=== PATIENT | female | born 1940 | race Caucasian/White ===

== ENCOUNTER 2016-11-01 03:07 | Inpatient (IN) ==
[2016-10-27 14:46] LABS: HEMATOCRIT 38.4 % (37.0-47.0); HEMOGLOBIN 12.8 g/dL (12.0-16.0); MCH 31.8 PG (27-31); MCHC 33.3 g/dL (33-37); MCV 95.3 FL (81-99); MPV 10.8 FL (7.4-10.4); RBC 4.03 XMIL (4.2-5.4)
[2016-10-27 15:08] LABS: CALCIUM 9.4 mg/dL (8.8-10.2)
--- NOTE | 2016-11-01 07:35 | EKG Report ---
Test Performed on : 11/01/2016 07:05:37 AM Test Reason : PREOP Blood Pressure : / mmHG Vent. Rate : 081 BPM Atrial Rate : 081 BPM P-R Int : 194 ms QRS Dur : 064 ms QT Int : 396 ms P-R-T Axes : 007 001 034 degrees QTc Int : 460 ms Normal sinus rhythm. Normal ECG When compared with ECG of 13-SEP-2007 10:11, No significant change was found Confirmed by Cabrera LONG, Eliezer Chilel ([id number]) on 11/02/2016 2:16:06 PM
[2016-11-01] MEDS ORDERED: ENTEREG ONE (07:37)
[2016-11-01] MEDS ORDERED: LR 1,000 ML ONE (07:38)
[2016-11-01] MEDS ORDERED: INVANZ 1 GM/NS 1 GM/50 ML IVPB ONE (07:49)
[2016-11-01] MEDS ORDERED: VALIUM ONE (07:53)
[2016-11-01] MEDS ORDERED: QUELICIN (DOSE) ONE (07:57)
[2016-11-01] MEDS ORDERED: NORCURON ONE ×2 (07:57→11:05)
[2016-11-01] MEDS ORDERED: SODIUM CHLORIDE 0.9% 10 ML ONE ×2 (07:57→11:05)
[2016-11-01] MEDS ORDERED: ROBINUL ONE ×2 (07:58→10:19)
[2016-11-01] MEDS ORDERED: XYLOCAINE-MPF 2% ONE (07:58)
[2016-11-01] MEDS ORDERED: DIPRIVAN 1% ONE (07:59)
[2016-11-01] MEDS ORDERED: FENTANYL ONE (08:00)
[2016-11-01] MEDS ORDERED: VERSED ONE (09:29)
[2016-11-01] MEDS ORDERED: NEO-SYNEPHRINE ONE (09:38)
[2016-11-01] MEDS ORDERED: SODIUM CHLORIDE 0.9% 20 ML ONE (09:38)
[2016-11-01] MEDS ORDERED: ZOFRAN ONE (10:20)
[2016-11-01] MEDS ORDERED: NEOSTIGMINE ONE (10:20)
[2016-11-01 10:40] LABS: URINE MICRO REVIEW NEEDED? NO; URINE SOURCE CATH
[2016-11-01] MEDS ORDERED: HURRICAINE SPRAY (DOSE) ONE (10:42)
[2016-11-01 10:49] LABS: BILIRUBIN URINE NEGATIVE (NEGATIVE); BLOOD URINE NEGATIVE (NEGATIVE); COLOR YELLOW; GLUCOSE URINE NEGATIVE (NEGATIVE); LEUKOCYTES URINE NEGATIVE (NEGATIVE); NITRITE URINE NEGATIVE (NEGATIVE); PROTEIN URINE TRACE mg/dL (NEGATIVE); SP GRAVITY URINE 1.015; TURBIDITY URINE HAZY (CLEAR); UR EPITHELIAL CELLS <10 /HPF (<10); URINE BACTERIA NEGATIVE /HPF; URINE RBC <10 /HPF (<10); URINE WBC <10 /HPF (<10); UROBILINOGEN URINE NORMAL (NORMAL)
[2016-11-01] MEDS ORDERED: NS 1,000 ML ONE (12:45)
[2016-11-01] MEDS: MORPHINE ONE ×6 (12:49→13:30)
--- NOTE | 2016-11-01 14:36 | OPERATIVE NOTE ---
PROCEDURE DATE: 11/01/2016 PROCEDURE PERFORMED: Exploratory laparotomy; extensive lysis of adhesions for greater than 1 hour; total abdominal colectomy with ileoproctostomy. SURGEON: Sourav Schilling MD LARRIMAN: 1. Leopoldo Garcia MD, who assisted with exposure, lysis of the adhesions, and the anastomosis. 2. MARGARET Harrison ANESTHESIA: General. FINDINGS: The most significant finding was the extensive adhesions within the abdominal cavity. DESCRIPTION OF PROCEDURE: Satisfactory general endotracheal anesthesia was achieved. The abdomen was prepped and draped in a sterile fashion. A midline incision was made from the epigastrium to the pubis. We carried our incision through the midline, through the subcutaneous fat, through the midline fascia, entering the abdominal cavity. We then began lysis of the adhesions using electrocautery as well as scissors. We 1st dissected the omentum away from the anterior abdominal wall. We then went to the right gutter and began mobilizing the right colon from the retroperitoneum. We went along the white line of Toldt, taking the ascending colon from the retroperitoneum. We then came across the hepatic flexure we used the LigaSure to assist us with the dissection. We left the greater omentum attached to the colon. We then took the greater omentum off the small bowel where it was attached to the small bowel. We went from right to left, dividing the greater omentum. We then mobilized the splenic flexure. We took care to avoid injury to the spleen. We then went along the descending colon, bringing the descending colon out of the retroperitoneum by incising along the white line of Toldt. We then progressed into the pelvis. We then incised the adhesions again of the small bowel into the pelvis and this allowed us to mobilize the small bowel out of the pelvis. We then lysed the adhesions to the ileum, exposed the length of ileum, and then divided the ileum with the MIKE 60 mm blue cartridge. We then went from proximal to distal on the colon, dividing the mesentery. The major vessels were clamped and divided with Alyssa clamps, ligating them with 2-0 silk suture ligatures. As we went from proximal to distal, we came down to the sigmoid, divided the sigmoid vessels, and then we stapled off the proximal rectum using the MIKE 60 blue cartridge. We handed off the specimen. We laid the ileum down end-to-side to the rectal stump. We then constructed the 2-layer anastomosis end-to-side using 3-0 silks in a Lembert fashion in the posterior layer. We cut off the distal staple line and then made a hole in the ileum. We then constructed the inner layer with a 3-0 Polysorb running locking stitch posteriorly, changing it to a Karla stitch anteriorly and the final layer was 3-0 silks in a Lembert fashion. This thereby constructed the end-to-side ileoproctostomy. We irrigated out the abdominal cavity. Hemostasis appeared satisfactory. We did close the mesentery of the ileum with 3-0 silk pops. We got rid of the contaminated instruments. Again, there was no evidence of bleeding. We then closed the peritoneum with a 2-0 chromic. We closed the fascia with running #2 Prolene. We irrigated out the subcutaneous tissue and closed the skin with radha. A sterile dressing was applied. She tolerated it well and was sent to the recovery room in satisfactory condition. cc: MD Froy Choe MD Dr. Arora
[2016-11-01] MEDS: ZOFRAN IV PRN ×2 (16:00→21:03)
[2016-11-01] MEDS: LOVENOX SUBQ SCH (16:01)
[2016-11-01] MEDS: OFIRMEV 1000 MG/ISOTONIC SOLN 1,000 MG/100 ML BOTTLE IV SCH ×2 (16:04→20:52)
[2016-11-01] MEDS: DILAUDID IV PRN ×2 (17:17→20:53)
[2016-11-01] MEDS: ULTRAM PO SCH ×2 (17:18→23:57)
[2016-11-01] MEDS: NS 1,000 ML IV SCH ×2 (18:37→23:57)
[2016-11-01] MEDS: PERIDEX MT SCH (20:52)
[2016-11-01] MEDS: KLONOPIN PO SCH (23:57)
[2016-11-02] MEDS: DILAUDID IV PRN ×2 (02:54→15:56)
[2016-11-02] MEDS: OFIRMEV 1000 MG/ISOTONIC SOLN 1,000 MG/100 ML BOTTLE IV SCH ×4 (03:34→21:05)
[2016-11-02] MEDS: PRILOSEC PO SCH (05:59)
[2016-11-02] MEDS: ULTRAM PO SCH ×3 (05:59→21:08)
[2016-11-02 06:45] LABS: HEMATOCRIT 19.4 % (37.0-47.0); HEMOGLOBIN 6.2 g/dL (12.0-16.0); MPV 10.5 FL (7.4-10.4)
[2016-11-02 07:01] LABS: POTASSIUM 4.5 mmol/L (3.5-5.1)
[2016-11-02 07:47] LABS: CALCIUM 6.7 mg/dL (8.8-10.2)
[2016-11-02] MEDS: ENTEREG PO SCH ×2 (09:17→21:06)
[2016-11-02] MEDS: PERIDEX MT SCH ×2 (09:17→21:05)
[2016-11-02] MEDS: OSCAL 500 + D PO SCH ×2 (09:30→21:05)
--- NOTE | 2016-11-02 11:47 | PROGRESS NOTE ---
DATE: 11/02/2016 SUBJECTIVE: Patient is doing okay. She is having some nausea and some pain around her sides but otherwise she says she is doing okay. OBJECTIVE: Vital Signs: Patient is currently afebrile. Her vital signs are stable. General: No acute distress. Cardiovascular: Regular rate and rhythm. Lungs: Grossly clear. Abdomen: Soft. Appropriately tender. Dressing in place. LABORATORY: Hematocrit is 19, hemoglobin is 6.2, platelet count 135,000. Remainder of labs reviewed. ASSESSMENT AND PLAN: This is a 76-year-old female status post total abdominal colectomy with ileoproctostomy. Postoperative state. At this time, we will recheck a stat hematocrit since her hematocrit is down to 19.4. This might be related to resuscitation, but will need a repeat. At her age she may need a transfusion if it does remain low. Will decrease her IV fluids down to 100 mL an hour. We will await return of bowel function. cc: MD Sourav Hernandez MD
[2016-11-02 11:53] LABS: BASO% 0.3 % (0.0-0.8); EOS# 0.01 X1000 (0.0-0.7); EOS% 0.2 % (0.0-10.0); HEMATOCRIT 18.3 % (37.0-47.0); HEMOGLOBIN 5.9 g/dL (12.0-16.0); LYMPH% 22.7 % (20.5-51.1); MCH 31.4 PG (27-31); MCHC 32.2 g/dL (33-37); MCV 97.3 FL (81-99); MONO# 0.86 X1000 (0.11-0.59); MPV 10.4 FL (7.4-10.4); NEUT% 63.8 % (42.2-75.2); PLT 120 X1000 (130-400); RBC 1.88 XMIL (4.2-5.4)
[2016-11-02 11:54] LABS: MANUAL DIFF NEEDED? NO
[2016-11-02] MEDS: NS 1,000 ML IV SCH ×2 (12:56→21:06)
[2016-11-02] MEDS: KLONOPIN PO SCH (21:05)
[2016-11-03] MEDS: ULTRAM PO SCH ×3 (03:57→12:10)
[2016-11-03] MEDS: OFIRMEV 1000 MG/ISOTONIC SOLN 1,000 MG/100 ML BOTTLE IV SCH ×4 (04:00→21:55)
[2016-11-03] MEDS: DILAUDID IV PRN ×3 (05:12→21:56)
[2016-11-03 05:45] LABS: MANUAL DIFF NEEDED? NO
[2016-11-03] MEDS: PRILOSEC PO SCH (06:22)
[2016-11-03 06:24] LABS: BASO% 0.1 % (0.0-0.8); EOS# 0.06 X1000 (0.0-0.7); EOS% 0.8 % (0.0-10.0); HEMATOCRIT 26.4 % (37.0-47.0); HEMOGLOBIN 8.5 g/dL (12.0-16.0); IMM GRAN# 0.04 X1000 (0.0-0.04); IMM GRAN% 0.6 % (0.0-0.5); LYMPH# 1.03 X1000 (1.2-3.4); LYMPH% 14.4 % (20.5-51.1); MCH 29.7 PG (27-31); MCHC 32.2 g/dL (33-37); MCV 92.3 FL (81-99); MONO# 0.85 X1000 (0.11-0.59); MONO% 11.9 % (1.7-9.3); MPV 10.6 FL (7.4-10.4); NEUT% 72.2 % (42.2-75.2); PLT 109 X1000 (130-400); RBC 2.86 XMIL (4.2-5.4)
[2016-11-03 07:17] LABS: POTASSIUM 3.7 mmol/L (3.5-5.1)
[2016-11-03 07:49] LABS: CALCIUM 7.1 mg/dL (8.8-10.2)
[2016-11-03] MEDS: ENTEREG PO SCH ×2 (09:54→21:56)
[2016-11-03] MEDS: PERIDEX MT SCH ×2 (09:54→21:56)
[2016-11-03] MEDS: OSCAL 500 + D PO SCH ×2 (09:54→21:56)
[2016-11-03] MEDS: NS 1,000 ML IV SCH ×2 (12:11→19:15)
[2016-11-03] MEDS: KLONOPIN PO SCH (21:56)
[2016-11-04] MEDS: ULTRAM PO SCH ×4 (01:09→22:03)
[2016-11-04] MEDS: DILAUDID IV PRN ×5 (01:52→23:16)
[2016-11-04] MEDS: OFIRMEV 1000 MG/ISOTONIC SOLN 1,000 MG/100 ML BOTTLE IV SCH ×3 (04:23→16:50)
[2016-11-04] MEDS: PRILOSEC PO SCH ×2 (05:21→07:38)
[2016-11-04] MEDS: NS 1,000 ML IV SCH (08:01)
[2016-11-04] MEDS ORDERED: NS 1,000 ML IV SCH (09:09)
[2016-11-04] MEDS: PERIDEX MT SCH ×2 (09:32→22:03)
[2016-11-04] MEDS: OSCAL 500 + D PO SCH ×2 (09:33→22:02)
[2016-11-04] MEDS: ENTEREG PO SCH ×2 (09:33→22:03)
[2016-11-04] MEDS: KLONOPIN PO SCH (22:02)
[2016-11-05] MEDS: OFIRMEV 1000 MG/ISOTONIC SOLN 1,000 MG/100 ML BOTTLE IV SCH ×4 (03:54→20:40)
[2016-11-05] MEDS: DILAUDID IV PRN ×5 (03:54→22:07)
[2016-11-05] MEDS: ZOFRAN IV PRN (05:57)
[2016-11-05] MEDS: ULTRAM PO SCH ×3 (05:58→20:39)
[2016-11-05] MEDS: PRILOSEC PO SCH ×2 (05:58→08:21)
[2016-11-05] MEDS: OSCAL 500 + D PO SCH ×2 (09:48→20:39)
[2016-11-05] MEDS: ENTEREG PO SCH ×2 (09:48→20:39)
[2016-11-05] MEDS: PERIDEX MT SCH ×2 (09:48→20:40)
[2016-11-05] MEDS ORDERED: SALINE LOCK IV FLUID XX ONE (13:32)
[2016-11-05] MEDS: LOVENOX SUBQ SCH (16:51)
[2016-11-05] MEDS: KLONOPIN PO SCH (20:39)
[2016-11-06] MEDS: ULTRAM PO SCH ×3 (04:15→21:38)
[2016-11-06] MEDS: OFIRMEV 1000 MG/ISOTONIC SOLN 1,000 MG/100 ML BOTTLE IV SCH ×4 (04:15→21:39)
[2016-11-06] MEDS: PRILOSEC PO SCH (06:12)
[2016-11-06] MEDS: DILAUDID IV PRN ×3 (08:41→19:58)
[2016-11-06] MEDS: OSCAL 500 + D PO SCH ×2 (09:00→21:38)
[2016-11-06] MEDS: ENTEREG PO SCH ×2 (09:00→21:38)
[2016-11-06] MEDS: PERIDEX MT SCH ×2 (09:00→21:39)
[2016-11-06] MEDS: LOVENOX SUBQ SCH (16:33)
[2016-11-06] MEDS: KLONOPIN PO SCH (21:38)
[2016-11-07] MEDS: DILAUDID IV PRN ×5 (01:11→21:06)
[2016-11-07] MEDS: OFIRMEV 1000 MG/ISOTONIC SOLN 1,000 MG/100 ML BOTTLE IV SCH (04:05)
[2016-11-07] MEDS: ULTRAM PO SCH ×3 (04:06→20:48)
[2016-11-07] MEDS: PRILOSEC PO SCH (06:16)
--- NOTE | 2016-11-07 09:12 | Diag Imaging Result Doc PS360 ---
EXAM: FLAT/UPRIGHT ABD/1 VIEW CHEST HISTORY: abdominal pain TECHNIQUE: Flat and upright abdomen with PA chest COMMENT: There are surgical skin clips from the epigastrium to the pelvis slightly to the left the midline. There is dense calcification of the aorta and iliac arteries. There is stool in the rectum. The small bowel and stomach are not distended. There is no evidence organomegaly or mass. IMPRESSION: Postsurgical changes. The possibility of mild constipation cannot be excluded. Electronically signed by Evan Knight 11/07/2016 9:09 AM
[2016-11-07] MEDS: OSCAL 500 + D PO SCH (09:30)
[2016-11-07] MEDS: NORCO-10 PO PRN (09:30)
[2016-11-07] MEDS: PERIDEX MT SCH ×2 (09:30→20:48)
[2016-11-07] MEDS: ENTEREG PO SCH ×2 (09:30→20:49)
[2016-11-07] MEDS: LOVENOX SUBQ SCH (15:04)
[2016-11-07] MEDS: KLONOPIN PO SCH (20:48)
[2016-11-08] MEDS: DILAUDID IV PRN ×2 (00:39→05:46)
[2016-11-08] MEDS: OSCAL 500 + D PO SCH ×3 (00:39→20:40)
[2016-11-08] MEDS: ULTRAM PO SCH ×3 (05:47→20:40)
[2016-11-08] MEDS: PRILOSEC PO SCH (06:48)
[2016-11-08] MEDS: PERIDEX MT SCH ×2 (10:22→20:40)
[2016-11-08] MEDS: ENTEREG PO SCH ×2 (10:22→20:40)
[2016-11-08] MEDS: NORCO-10 PO PRN ×2 (11:57→16:11)
[2016-11-08] MEDS: LOVENOX SUBQ SCH (14:36)
[2016-11-08] MEDS: KLONOPIN PO SCH (20:40)
[2016-11-09] MEDS: NORCO-10 PO PRN ×3 (04:07→15:44)
[2016-11-09] MEDS: ULTRAM PO SCH ×3 (05:57→21:39)
[2016-11-09] MEDS: PRILOSEC PO SCH ×2 (05:57→07:42)
--- NOTE | 2016-11-09 06:51 | PROGRESS NOTE ---
DATE: 11/09/2016 SUBJECTIVE: Patient doing okay. No major issues. OBJECTIVE: Vital Signs: Patient is currently afebrile. Her vital signs are stable. General Examination: No acute distress. Cardiovascular: Regular rate and rhythm. Lungs: Grossly clear. Abdomen: Soft, appropriately tender. ASSESSMENT/PLAN: A 76-year-old female, status post total abdominal colectomy. Postoperative state. At this time, the patient seems to be improving. Overall, I think the best thing for her to be, given her overall deconditioning, would be to go to rehab. At that this time, rehab referrals are pending. Once she has been accepted at a rehab place, I think that she would do well to be sent there. I did discuss this with the family and the patient in the room. cc: MD Sourav Hernandez MD
[2016-11-09] MEDS: OSCAL 500 + D PO SCH ×2 (09:58→21:40)
[2016-11-09] MEDS: PERIDEX MT SCH ×2 (09:59→21:41)
[2016-11-09] MEDS: LOVENOX SUBQ SCH (15:44)
[2016-11-09] MEDS: KLONOPIN PO SCH (21:41)
[2016-11-10] MEDS: ULTRAM PO SCH ×3 (06:03→21:52)
[2016-11-10] MEDS: PRILOSEC PO SCH (06:03)
[2016-11-10] MEDS: OSCAL 500 + D PO SCH ×2 (09:28→21:52)
[2016-11-10] MEDS: PERIDEX MT SCH ×2 (09:28→21:51)
[2016-11-10] MEDS: NORCO-10 PO PRN ×2 (12:15→18:14)
[2016-11-10] MEDS: LOVENOX SUBQ SCH (18:14)
[2016-11-10] MEDS: VOLTAREN PO SCH (21:52)
[2016-11-10] MEDS: KLONOPIN PO SCH (21:54)
[2016-11-11] MEDS: ULTRAM PO SCH (05:27)
[2016-11-11] MEDS: PRILOSEC PO SCH (05:27)
[2016-11-11 07:36] VITALS: BP 132/62
[2016-11-11] MEDS: VOLTAREN PO SCH (08:51)
[2016-11-11] MEDS: PERIDEX MT SCH (08:51)
[2016-11-11] MEDS: OSCAL 500 + D PO SCH (08:51)
--- NOTE | 2016-11-11 09:19 | DISCHARGE SUMMARY ---
ADMISSION DATE: 11/01/2016 DISCHARGE DATE: 11/11/2016 PRIMARY DISCHARGE DIAGNOSIS: Recurrent extensive diverticulitis. OTHER DIAGNOSIS: Extensive intra-abdominal adhesions. PRIMARY PROCEDURE: Exploratory laparotomy, lysis of adhesions, total abdominal colectomy with ileoproctostomy. INDICATIONS: This is a 76-year-old patient of Dr. Froy Gant, who has had recurrent diverticular symptoms. He has been followed by Dr. Antonio and has been recommended for a total abdominal colectomy. HOSPITAL COURSE: Following her admission, she went to the operating room and underwent the total abdominal colectomy with ileoproctostomy. The operation was complicated by the extensive lysis of adhesions which lasted more than an hour. Postoperatively, she gradually improved, took her Donohue on the second postoperative day, and began clear liquids on the third postoperative day. Her bowel progress was slow, however we were able to slowly advance her to p.o. food which she took in a limited fashion. Her primary complaint was just discomfort. We switched her off the IV Dilaudid and Ofirmev, and put her on [place] 10 which she tolerated okay. We began mobilizing her and walked her, but because of the profound weakness it was felt she would be best served by rehab referral. So, she will be transferred to rehab on a [id number] diabetic diet to be evaluated for physical therapy and rehabilitation until she is strong enough to go home. She will resume her usual medications. cc: MD Froy Choe MD
--- NOTE | 2016-11-11 10:57 | Diag Imaging Result Doc PS360 ---
CHEST-PORTABLE - 11/11/2016 INDICATION: rehab TECHNIQUE: COMPARISON: 11/07/2016 FINDINGS: The lungs are normally expanded and clear. Heart size and mediastinal contours are normal. No pneumothorax or pleural effusion. IMPRESSION: Negative exam. Electronically signed by Andrea Bird 11/11/2016 10:55 AM
== END 2016-11-11 12:21 ==
LOC: SURHOLD 03:07 → 4N 12:48
PROVIDERS: ADMIT Surgery; ATTEND Surgery

== ENCOUNTER 2016-11-16 08:06 | Inpatient (IN) ==
[2016-11-16] MEDS ORDERED: NS 500 ML IV ONE ×2 (08:10→08:52)
[2016-11-16] MEDS ORDERED: ZOSYN 3.375 GM/NS 3.375 GM/50 ML IVPB IV ONE (08:10)
[2016-11-16] MEDS ORDERED: NS 1,000 ML IV ONE ×2 (08:10→12:58)
--- NOTE | 2016-11-16 08:21 | PROVIDER DOCUMENTATION ---
HPI-General Adult - General Stated Complaint: AMS Time Seen by Provider: 11/16/16 08:07 Source: EMS, intermediate records Unable to obtain history due to:: other (paucity of [facility] notes) Allergies/Adverse Reactions: Patient Allergies Allergy/AdvReac Type Severity Reaction Status Date / Time Sulfa (Sulfonamide Allergy Unknown Verified 11/16/16 08:59 Antibiotics) Home Medications: Home Medication List Medication Instructions Recorded Confirmed Last Taken Type Clonazepam [Klonopin] 2 tab PO QHS 10/27/16 11/16/16 10/31/16 21:00 History Diclofenac Sodium 50 mg PO BID 10/27/16 11/16/16 10/27/16 History Metformin [Glucophage] 2 tab PO BID 10/27/16 11/16/16 10/31/16 11:00 History Omeprazole [Prilosec] 40 mg PO DAILY 10/27/16 11/16/16 10/30/16 History Gabapentin 100 mg PO QHS 11/01/16 11/16/16 10/29/16 History Tramadol [Ultram] 50 mg PO Q8HR #30 tablet 11/11/16 11/16/16 Unknown Rx Polyethylene Glycol 3350 [Miralax] 17 gm PO DAILY 11/16/16 11/16/16 Unknown History - History of Present Illness -Gen Adult Nature of Presenting Problems: Has had decreased LOC for 3-4 days. Labs yest were abnl. [facility] a total colecomy for diverticular dz. Surg was on 11/01. Pt is somulent. Denies pain Location of Pain/Injury: reports: none Pain Radiation: reports: no radiation Quality of Pain: reports: none Onset/Duration: reports: 4 days ago Timing: reports: still present, constant, getting worse Context/Activities at Onset: reports: none Modifying Factors: improves with: nothing Associated Symptoms: reports: denies symptoms Similar Symptoms Previously?: No Recently seen or treated by another doctor?: Yes Review of Systems - Adult - REVIEW OF SYSTEMS - ADULT ROS:: unobtainable per condition Constitutional: reports: see HPI Past History - Adult - PAST MEDICAL HISTORY-ADULT Review of Records: reports: Medications Reviewed Diabetes Type: Type 2 Diabetes controlled by:: PO Meds - PRIOR SURGERIES/PROCEDURES Surgical/Procedure History: reports: other (total colectomy) - SOCIAL HISTORY Smoking: quit less than 1 year Physical Exam-General - PHYSICAL EXAM-ADULT Exam Limited by: ALOC Initial Vital Signs Reviewed: Yes - CONSTITUTIONAL General Appearance: moderate distress, slow to respond - EYES Eyes: PERRL/EOMI, pink conjunctivae - HEAD, EARS, NOSE, MOUTH & THROAT HENMT: normal ENT inspection, pharynx normal, other (dry membranes) - NECK Neck: full range of motion, supple - RESPIRATORY Respiratory: lungs clear, normal breath sounds, no respiratory distress - CARDIOVASCULAR Cardiovascular: regular rate, rhythm, no edema - GASTROINTESTINAL (ABDOMEN) Abdominal Exam: normal bowel sounds, soft, tenderness (mild, diffuse) - MUSCULOSKELETAL Extremity: non-tender - SKIN Integumentary: warm/dry, other (decreased turgor) - NEUROLOGIC Neurologic: other (unable to test due to somulence) - PSYCHIATRIC Psych/Mental Status: other (arousable to voice, unable to assess further) Progress - PLAN OF CARE/RESULTS Progress/Plan/Lab Results: Orders Category Date Time Status Cardiac Monitoring DIRECTED Care 11/16/16 08:11 Active Donohue Cath Insertion ORDERED Care 11/16/16 08:11 Active IV Insertion ORDERED Care 11/16/16 08:11 Active IV Insertion ORDERED Care 11/16/16 08:11 Active Intake and Output-Strict ORDERED Care 11/16/16 08:11 Active Notify MD of + Sepsis Screen NOW Care 11/16/16 08:11 Active Notify MD/PA/STEVE for exam NOW Care 11/16/16 08:11 Active Repeat Vital Signs .Blood Pressure Care 11/16/16 08:11 Active Repeat Vital Signs .Heart Rate Care 11/16/16 08:11 Active Repeat Vital Signs .Oxygen Saturation Care 11/16/16 08:11 Active Repeat Vital Signs .Respiratory Rate Care 11/16/16 08:11 Active Repeat Vital Signs .Temp Care 11/16/16 08:11 Active CHEST-1 VIEW [RAD] Stat Exams 11/16/16 08:10 Ordered ABG [RESP] Routine Lab 11/16/16 08:13 Ordered BLOOD CULTURE [BLDCUL] Stat Lab 11/16/16 08:15 Ordered CBC WITH DIFF [HEME] Stat Lab 11/16/16 08:15 Ordered CK PROFILE [SP CHEM] Stat Lab 11/16/16 08:15 Ordered COMPREHENSIVE METABOLIC PANEL [CHEM] Stat Lab 11/16/16 08:15 Ordered LACTATE, PLASMA [CHEM] Stat Lab 11/16/16 08:15 Ordered LACTATE, PLASMA [CHEM] Timed Lab 11/16/16 08:11 Ordered MAGNESIUM [CHEM] Stat Lab 11/16/16 08:13 Uncollected PROTIME WITH INR [COAG] Stat Lab 11/16/16 08:15 Ordered PTT [COAG] Stat Lab 11/16/16 08:15 Ordered TROPONIN T Stat Lab 11/16/16 08:15 Ordered URINALYSIS W/POSS RFLX CULT-1 [URINALYSIS] Stat Lab 11/16/16 08:10 Uncollected 0.9% Sodium Chloride Inj [Ns] 1,000 ml Med 11/16/16 08:10 Discontinued IV As Directed 0.9% Sodium Chloride Inj [Ns] 500 ml Med 11/16/16 08:10 Active IV 999 mls/hr Piperacil/Tazobact 3.375 gm/Ns [Zosyn 3.375 gm/Ns] 50 Med 11/16/16 08:10 Ordered ml IV NOW Oxygen Device Stat Oth 11/16/16 08:11 Active Result Diagrams: 11/16/16 08:05 11/16/16 08:05 - REASSESSMENT Reassessment #1 Time Reassessed: 09:52 (more alert. nail spanish on, but skin turgor appears sl better) Departure - Departure Date of Disposition Decision: 11/16/16 Time of Disposition Decision: 15:00 DIAGNOSIS: Septic shock, Dehydration Disposition: ADMITTED INPATIENT 09 Certified Medical Emergency: Emergent Condition: Fair - Critical Care Note This patient required my direct & personal management of CC.: No
[2016-11-16 08:36] LABS: URINE SOURCE CATH
[2016-11-16 08:39] LABS: ALLEN TEST YES; BE -25.9 mmoll (-3.0-3.0); BLOOD TYPE ARTERIAL; DRAW SITE R RADIAL; METHB 0.8 % (0.0-1.5); O2(CT) 13.9 mL/dL (15.0-23.0); PO2(98.6) 127 mmHg (60-100); SAMPLE BLOOD; SAO2 99.4 % (95.0-100.0)
--- NOTE | 2016-11-16 08:40 | Diag Imaging Result Doc PS360 ---
EXAM: CHEST-1 VIEW HISTORY: hypotension TECHNIQUE: AP portable at 0835 COMMENT: The appearance of the chest has not changed appreciably since 11/11/2016. There is some opacity in the left costophrenic sulcus which may be due to a fat pad. There are granulomata in the left upper lobe. IMPRESSION: Stable chest. Electronically signed by Evan Knight 11/16/2016 8:38 AM
[2016-11-16 08:41] LABS: LACTATE > 20.00 mmoll (0.44-2.22); MODALITY ROOM AIR; PCO2(98.6) 14 mmHg (35-45)
[2016-11-16] MEDS ORDERED: VANCOMYCIN 1 GM/NS 1 GM/250 ML IVPB IV ONE (08:43)
[2016-11-16 08:48] LABS: BILIRUBIN URINE NEGATIVE (NEGATIVE); BLOOD URINE SMALL (NEGATIVE); COLOR ORANGE; GLUCOSE URINE NEGATIVE (NEGATIVE); LEUKOCYTES URINE LARGE (NEGATIVE); NITRITE URINE NEGATIVE (NEGATIVE); PROTEIN URINE 100 mg/dL (NEGATIVE); SP GRAVITY URINE 1.016; TURBIDITY URINE TURBID (CLEAR); UROBILINOGEN URINE NORMAL (NORMAL)
[2016-11-16 08:49] LABS: BASO% 0.3 % (0.0-0.8); EOS# 0.07 X1000 (0.0-0.7); EOS% 0.2 % (0.0-10.0); HEMATOCRIT 35.5 % (37.0-47.0); HEMOGLOBIN 10.2 g/dL (12.0-16.0); IMM GRAN# 1.43 X1000 (0.0-0.04); IMM GRAN% 4.2 % (0.0-0.5); LYMPH# 2.49 X1000 (1.2-3.4); LYMPH% 7.3 % (20.5-51.1); MANUAL DIFF NEEDED? YES; MCH 30.3 PG (27-31); MCHC 28.7 g/dL (33-37); MCV 105.3 FL (81-99); MONO# 5.95 X1000 (0.11-0.59); MONO% 17.3 % (1.7-9.3); MPV 11.6 FL (7.4-10.4); NEUT% 70.7 % (42.2-75.2); PLT 559 X1000 (130-400); RBC 3.37 XMIL (4.2-5.4)
[2016-11-16 08:57] LABS: INR 1.32; PROTIME 14.1 Seconds (9.2-11.7)
[2016-11-16 09:05] LABS: UR EPITHELIAL CELLS >10 /HPF (<10); URINE BACTERIA 2+ /HPF; URINE CULTURE NEEDED? YES; URINE MICRO REVIEW NEEDED? YES; URINE RBC <10 /HPF (<10); URINE WBC TNTC /HPF (<10)
[2016-11-16 09:10] LABS: BANDS 2 % (0-1); LYMPHS 11 % (21-51); MONO 9 % (1-9)
[2016-11-16] MEDS: LEVOPHED 8 MG in D5 1/2 NS 250 ML IV SCH ×2 (09:19→09:37)
[2016-11-16 09:24] LABS: ALBUMIN 3.1 g/dL (3.5-5.0); ALKALINE PHOSPHATASE 83 U/L (32-104); BUN 89 mg/dL (8-22); CALCIUM 8.4 mg/dL (8.8-10.2); CHLORIDE 73 mmol/L (98-107); CK PROFILE 111 U/L (24-173); COSMO 299; GOT 17 U/L (10-30); GPT 10 U/L (10-36); POTASSIUM 5.5 mmol/L (3.5-5.1); SODIUM 137 mmol/L (136-145); TCO2 4 mmol/L (25-35); TOTAL BILIRUBIN 0.21 mg/dL (0.20-1.00); TOTAL PROTEIN 5.9 g/dL (6.3-8.3)
[2016-11-16 09:28] LABS: URINE CASTS NONE SEEN
[2016-11-16 09:29] LABS: URINE SMALL ROUND CELLS RENAL PRESENT
[2016-11-16] MEDS ORDERED: D50W SYRINGE IV ONE (09:54)
[2016-11-16] MEDS ORDERED: SODIUM BICARBONATE 8.4% 150 MEQ in D5W 1,000 ML IV ONE (10:00)
[2016-11-16 10:15] LABS: PROTEIN CREAT RATIO 1.2; UR CREAT RANDOM 80.1 mg/dL (11-20); UR PROT RANDOM 93.6 mg/dL
[2016-11-16] MEDS ORDERED: VANCOMYCIN IV PER PHARMACY MISC SCH (10:20)
[2016-11-16] MEDS ORDERED: NS 1,000 ML IV SCH (10:20)
--- NOTE | 2016-11-16 10:25 | Diag Imaging Result Doc PS360 ---
EXAM: ABDOMEN/PELVIS W/O CONTRAST HISTORY: septic shock, recent colectomy TECHNIQUE: CT urogram without contrast COMMENT: There is some patient motion. There has been no appreciable change in the visualized portion of the lung bases since the previous study of 07/06/2016. There is an apparent 3 mm stone in the upper pole of the left collecting system. There is no evidence of hydronephrosis on either side. There is a cyst arising from the medial lower pole of the right kidney which was also present previously. There has been colectomy since the previous examination. There is no evidence of dilatation of the small bowel. The stomach is not distended. There is no evidence of significant adenopathy or free fluid. There is a catheter coiled in the urinary bladder. There are degenerative changes in the lumbar spine including facet arthropathy and degenerative disc disease with disc bulge. There may be spinal stenosis at the L4-5 level. There is been hysterectomy. There is what appears to be an ovarian cyst on the right measuring 2.4 cm in diameter. This was not present at the time the previous study. IMPRESSION: No evidence of bowel obstruction. Postsurgical changes of colectomy. Nonobstructing left renal stone. Right ovarian cyst. Electronically signed by Evan Knight 11/16/2016 10:22 AM
[2016-11-16] MEDS: SODIUM BICARBONATE 8.4% 150 MEQ in D5W 1,000 ML IV SCH (10:28)
[2016-11-16] MEDS ORDERED: HALDOL IV ONE (11:14)
--- NOTE | 2016-11-16 11:56 | SEPSIS: TISSUE PERFUSION ASSMT ---
Sepsis: Tissue Perfusion [facility], [place] - Physical Exam Assessment Date: 11/16/16 Time Assessment Initialized: 11:20 Vital Signs: Last Vital Signs Temp 94.6 F L 11/16/16 08:22 Pulse 73 11/16/16 09:52 Resp 17 11/16/16 09:52 BP 85/47 11/16/16 09:52 Pulse Ox 98 11/16/16 11:38 Height 5 ft 3 in Weight 144 lb 12.8 oz BP: 82/53 HR: 70 RR: 18 Pulse Ox: 96% Temp: 96.4 11/16/16 11:50 Lung Sounds:: lungs clear Heart Sounds:: Regular Capillary Refill Time: Greater Than 2 Seconds Peripheral Pulse Evaluation:: radial (R): 1+, radial (L): 1+, dorsalis-pedis (R) : 1+, dorsalis-pedis (L): 1+, posterior tibialis (R): 1+, posterior tibialis (L) : 1+ Skin Exam:: pale - Impression Impression:: Tissue Perfusion Inadequate - Plan Plan:: No Change Comment: 11/16/16 11:53 We are currently administering fluid resuscitation. Pt has received 30mL/Kg NS bolus and is receiving NS at 250mL/Hr. She is also on levophed gtt and we are uptitrating to a MAP >65. She is receiving broad spec abx including Vancomycin to cover staph.
[2016-11-16] MEDS: MERREM 500 MG in NS 50 ML IV SCH ×2 (12:14→20:30)
[2016-11-16 12:43] LABS: ALLEN TEST YES; BE -28.2 mmoll (-3.0-3.0); BLOOD TYPE ARTERIAL; DRAW SITE R RADIAL; METHB 0.5 % (0.0-1.5); O2(CT) 13.2 mL/dL (15.0-23.0); PO2(98.6) 133 mmHg (60-100); SAMPLE BLOOD; SAO2 99.9 % (95.0-100.0); THB 9.4 g/dL (11.5-17.4)
[2016-11-16 12:45] LABS: MODALITY ROOM AIR; PCO2(98.6) 15 mmHg (35-45)
--- NOTE | 2016-11-16 13:03 | HISTORY AND PHYSICAL ---
GENERAL SURGEON: Sourav Schilling MD. CHIEF COMPLAINT: Altered mental status. HISTORY OF PRESENT ILLNESS: Mrs. Hankins is a 76-year-old female with a history of diabetes mellitus who recently had an exploratory laparotomy with total abdominal colectomy with ileoproctostomy by Dr. Schilling on 11/01/2016. She was discharged 5 days ago and sent to [facility]. At this time patient is lethargic and confused, unable to answer orientation questions or give history. History is obtained per chart review as there is no family at the bedside. She was brought to the ER today because she has become increasingly lethargic and confused. Labs done at [facility] yesterday showed a profound increase in her BUN and creatinine and she was sent here for evaluation. When she got here today, she was noted to be hypotensive, labs showed a profound leukocytosis with left shift along with acute kidney injury. ABG revealed severe metabolic acidosis with a lactic acid of 22. As such, she was started on onset sepsis protocol. She has been given broad-spectrum antibiotics and fluid resuscitation per protocol and she is requiring Levophed for hemodynamics support. PAST MEDICAL HISTORY: 1. Recent total colectomy with ileoproctostomy. 2. Diabetes mellitus. 3. GERD. 4. Arthritis. PAST SURGICAL HISTORY: Recent colectomy, cholecystectomy, hysterectomy, partial resection of the stomach, bilateral rotator cuff tear, left foot surgery, cataract removal, shoulder arthroscopy. SOCIAL HISTORY: Patient quit smoking. There is no history of illicit drug or alcohol use. She is , is currently not at the bedside. REVIEW OF SYSTEMS: Unable to obtain. FAMILY HISTORY: Noncontributory. ALLERGIES: Sulfa. HOME MEDICATIONS: Klonopin 2 mg at bedtime, baclofen 50 mg b.i.d., Neurontin 100 mg at bedtime, Glucophage 1000 mg b.i.d., Prilosec 40 mg daily, MiraLAX 17 g daily, Ultram 50 mg p.o. q.8 h. PHYSICAL EXAMINATION: VITAL SIGNS: Blood pressure is 90/50, heart rate 69, respiratory rate is 16, O2 saturations 96% on room air, temperature is 96.4 degrees. GENERAL: This is an elderly female who is in no acute distress but confused. NEUROLOGIC: The patient is confused but she follows commands. She is unable to answer any orientation questions correctly, she just mumble. She is also agitated, pulling at lines. HEENT: Head is atraumatic and normocephalic. Her pupils are equal, round, and reactive to light. Oral mucosa is pale and dry. NECK: Trachea is midline. No JVD. CHEST: Clear to auscultation bilaterally. CARDIOVASCULAR: Regular rate and rhythm. S1, S2 noted. No murmurs. GASTROINTESTINAL: Midline incision clean, dry, and intact with Steri-Strips. No signs of infection. Bowel sounds are hypoactive. Belly is soft. There is some mild generalized tenderness to palpation. EXTREMITIES: 1+ pulses in all 4 extremities with capillary refill greater than 2 seconds. SKIN: Cold to touch. DIAGNOSTIC DATA: Abdomen and pelvis CT shows post cholecystectomy site, post colectomy changes but nothing acute. There is nonobstructing left renal stone with right ovarian cyst. Chest x-ray is stable and there is some opacity in the left costophrenic sulcus which may be due a fat pad. There are granulomata in the left upper lobe. WBC 34.31, hemoglobin 10.2, hematocrit 35.5, MCV 105.3, platelet count 559,000. INR 1.32. ABG on room air revealed pH 7, pCO2 14, pO2 127, bicarb 4.7. Lactic acid greater than 20. Sodium 137, potassium 5.5, chloride 73, CO2 4, anion gap not reportable, BUN 89, creatinine 7.7, glucose 55, calcium 8.4, magnesium 1.7. Bilirubin 0.21, AST 17, ALT 10, alkaline phosphatase 83. CK 111 troponin 0.025 albumin 3.1. Lactic acid 22, repeat 19. TSH 0.76. ASSESSMENT AND PLAN: 1. Septic shock: Patient meets criteria with profound leukocytosis, hypotension refractory to IV fluids requiring vasopressor, hypothermia, elevated international normalized ratio, and profound lactic acidosis. She does have a urinary tract infection but there does not appear to be a major source of infection, at least not at this time. We are resuscitating her per sepsis protocol. We have added meropenem and vancomycin for broad-spectrum antibiotics. Given her recent colectomy, we will consult Surgery as well. 2. Acute Kidney injury: Likely prerenal. Will check urine studies to verify as well as a renal ultrasound. Dr. Doan has been consulted. She is going to need to be put on a bicarbonate drip given her profound acidosis. We will also ask surgery to place a dialysis catheter in case she needs dialysis. 3. Metabolic encephalopathy: Likely secondary to sepsis but we are going to need to check a head CT, ammonia, and thyroid function. Continue to monitor her neuro status closely. 4. Macrocytic anemia: We will check iron studies in the morning. 5. Diabetes mellitus: We will check a hemoglobin A1c. Add pattern sugars and sliding scale insulin. 6. Deep venous thrombosis prophylaxis is going to be provided with SCDs and TEDs. Further recommendations to follow. TIME SPENT: Critical care time with this patient is 45 minutes. Dictated by STEVE Corrigan for Vishal Carter MD cc: STEVE Corrigan MD Robert C. Walker, MD [facility] HOSPITALJoão
--- NOTE | 2016-11-16 14:24 | Diag Imaging Result Doc PS360 ---
EXAM: US RENAL 2 (RETROPER) COMPLETE INDICATION: esme TECHNIQUE: COMPARISON: 03/22/2013 FINDINGS: There is a simple appearing cyst at the lower pole of the right kidney that is approximately stable measuring up to 2 cm. The kidneys are grossly normal in echotexture, otherwise. There is no discrete renal mass or hydronephrosis. The right kidney measures 9.0 cm and the left kidney measures 9.1 cm in the greatest longitudinal axes. The right renal cortex measures up to 0.9 cm and the left renal cortex measures up to 1 cm in thickness. There is a Donohue catheter in the urinary bladder and the bladder is nondistended. IMPRESSION: Stable simple right renal cyst. Essentially unremarkable, otherwise. Electronically signed by Joshua Ballard 11/16/2016 2:21 PM
--- NOTE | 2016-11-16 14:29 | PROGRESS NOTE ---
DATE: 11/16/2016 Mrs. Hankins seems to be about the same. She is not making urine. She is on pressors. She is still confused. I had a really large conversation with her , and we talked about the Advanced Directive. This patient does not want to be on mechanical ventilation or having CPR or cardioversion. We can only use medications for this patient. So, this patient will be DNR LEVEL 2. Time discussing advanced directive and prognosis of this patient with her about 35 minutes. cc: Vishal Carter MD
[2016-11-16 14:37] LABS: UR CREAT RANDOM 81.7 mg/dL (11-20); UR PROT RANDOM 115.8 mg/dL
--- NOTE | 2016-11-16 15:45 | CONSULTATION ---
DATE OF CONSULTATION: 11/16/2016 REASON FOR ADMISSION: Altered mental. Time seen 0900. CONSULTING PHYSICIAN: Srikanth Rdz for Dr. Santillan. HISTORY OF PRESENT ILLNESS: Ms. Hankins is a 76-year-old white female who has not been seen by our practice in the past. She has recently had an exploratory laparotomy with total abdominal colectomy with ileoproctostomy per Dr. Schilling in October 2016. She was discharged approximately 5 days ago and was sent to [facility]. Her states that she has not been eating and drinking for those 5 days when she was there, but did get her medications. She presents to the Emergency Department with increased lethargy and confusion. Her BUN and creatinine are elevated at 89 and 7.7. Patient has not had any urine output according to the . She has profound leukocytosis with a white count of 34.21. She has severe acidosis with a metabolic acidosis, CO2 4, lactic acidosis greater than 22 and an anion gap greater than 60. Subsequently patient has been given fluid resuscitation with 3L of normal saline. She is now on a Levophed drip. She has 2 IVs. She was recently started on vancomycin IV to be monitored by pharmacy. While I was at the bedside she was getting Zosyn IVPB. She is waiting for an ICU bed. She does mumble and is awake. She is unable to describe if she has any pain. She appears critically ill. She is in no acute distress as noted though she does remain restless. PAST MEDICAL HISTORY: Diabetes mellitus type 2. Recent total colectomy with ileoproctostomy. GERD, arthritis. Previous baseline creatinine is 1.2. It appears that she is in CKD stage 3A on her last hospitalization. SOCIAL HISTORY: She is . She has family who are attentive to her care. She currently is a resident of [facility]. She has quit smoking with previous smoker in the past. No history of illicit drug use or alcohol use. Her daughter has Medical power of trial attorney. FAMILY HISTORY: Noncontributory. PREVIOUS SURGICAL HISTORY: Noted for a recent colectomy with ileoproctostomy, cholecystectomy, hysterectomy, partial resection of stomach, bilateral rotator cuff tear, left foot surgery, cataract removal and shoulder arthroscopically. ALLERGIES: To sulfa. HOME MEDICATIONS: Listed as Klonopin, baclofen, Neurontin, Glucophage, Prilosec , MiraLAX and Ultram. REVIEW OF SYSTEMS: Review of systems x 10 is best obtained per and patient at the bedside. Her most recent vital signs, her temperature 94.6, blood pressure 85/47, heart rate 73, respirations are 16 to 18. She is on room air at this time. Donohue catheter to be inserted. LABS: Sodium 137, potassium 5.5, chloride 73, CO2 4. BUN 89, creatinine 7.7. Glucose 55. Her anion gap is 60 after calculation. Calcium of 8.4, albumin 3.1. White count 34.21, hemoglobin 10.2, hematocrit 35.5, with a platelet count of 559,000. Patient has a serum lactate of greater than 22. ABGs pH 7.0, CO2 14, PO2 127, bicarb 4.7 on room air. Her TSH is 0.76. Troponin is elevated 111 CK. Her total bilirubin is 0.21, AST 17, ALT 10, alkaline phosphatase 83. Patient had a CT of the head. Shows negative for acute. CT of the abdomen and pelvis shows post cholecystectomy site with changes nothing acute. No obstruction. Chest x-ray stable with some opacity to the left costophrenic sulcus with granulomatous to the left upper lobe. PHYSICAL EXAM: This is a 76-year-old white female. She appears chronically ill. She is in no acute distress but confused, slightly agitated.Skin: Warm and dry. No rashes or lesions. Neurological: She remains confused. She is able to follow some commands. HEENT: Normocephalic, atraumatic. Her pupils are equal, she has PHONG. Mucous membranes are dry, pale. Neck: Supple. Trachea midline. No JVD. Cardiovascular: She is regular rate and rhythm. There is no appreciable murmur or gallop at this time. Lungs: Clear to auscultation anterior. She is on room air. Abdomen: She has a midline incision that is clean, dry and intact. Steri-Strips remain intact. Bowel sounds are hypoactive, soft, mild tenderness on palpation. Genitourinary: Not inspected. Patient is to have a Donohue catheter placed. Extremities: Have 1+ edema. No clubbing or cyanosis. Neurological: As mentioned above. ASSESSMENT AND PLAN: 1. Acute kidney injury. This appears to be multifactorial. Her CT of the abdomen and pelvis shows no renal stones or mass. No measurement noted. We will check urine electrolytes once the Donohue catheter is in place. The patient appears dry. Acute kidney injury secondary to dehydration, hypotension and metformin intake, which is currently held. 2. Septic shock. Patient is severely hypotensive. She has been given 3 L of IV fluid. She is now on pressor support with Levophed. Patient is currently on septic shock protocol with positive leukocytosis and urinary tract infection. 3. Electrolytes. Patient has mild hyperkalemia. No need for intervention. 4. Acid-base balance. Patient has severe metabolic lactic acidosis and anion gap acidosis at this time. She is to be placed on sodium bicarbonate D5W with 3 amps of sodium bicarbonate to be infused at 75 mL an hour. 5. Anemia. This remains stable. Iron studies are pending. 6. Diabetes mellitus. Patient had been on her metformin associated with dehydration and this has currently been stopped. 7. Respiratory acidosis. The patient may eventually need ventilatory support. We will talk with the primary care team and discuss her medical power of trial attorney with her daughter. PLAN: Patient is to be placed in ICU. She has pressor support. She is on sepsis protocol. Offending medications have been stopped. Patient may eventually need to be intubated secondary to her severe acidosis. No indications for dialysis intervention today. Will discuss placement of Vas Cath with triple line for possible dialysis intefvention. We will continue to monitor and watch closely. I would to thank you for allowing us to follow with this patient. Dictated by STEVE Edwards for Arnaud Doan MD cc: STEVE Edwards MD [facility]
[2016-11-16] MEDS: NS 1,000 ML IV SCH ×2 (15:54→20:55)
[2016-11-16 16:32] LABS: BUN 82 mg/dL (8-22); CALCIUM 6.9 mg/dL (8.8-10.2); CHLORIDE 87 mmol/L (98-107); COSMO 312; MAGNESIUM 1.6 mg/dL (1.5-2.7); POTASSIUM 5.5 mmol/L (3.5-5.1); SODIUM 141 mmol/L (136-145); TCO2 3 mmol/L (25-35)
--- NOTE | 2016-11-16 17:10 | OPERATIVE NOTE ---
PROCEDURE DATE: 11/16/2016 PROCEDURE PERFORMED: Right femoral vein Vas-Cath placement with ultrasound guidance. SURGEON: Sourav Schilling MD. PREOP DIAGNOSIS: Septic shock with acute renal failure. POSTOP DIAGNOSIS: Septic shock with acute renal failure. DESCRIPTION OF PROCEDURE: The family permitted us to proceed. We then prepped and draped the right groin. We used an ultrasound to identify the femoral vein. We accessed the femoral vein under ultrasound guidance. After entering the femoral vein we passed the guidewire without difficulty. We then dilated the tract sequentially and passed the Trellis-8 catheter to the extent that it would go. The blood came back in each lumen spontaneously. We then flushed each lumen with saline and capped off each lumen. We then secured the flange to the skin with a nylon contained within the tray. The ChloraPrep again was used to clean the exit site. Sterile gauze covered it and then we placed a sterile OpSite. She tolerated it well. cc: Sourav Schilling MD
[2016-11-16] MEDS ORDERED: CALCIUM GLUCONATE 4.65 MEQ in NS 50 ML IV ONE (17:13)
[2016-11-16] MEDS: HUMALOG SUBQ SCH ×2 (17:19→22:27)
--- NOTE | 2016-11-16 17:41 | CONSULTATION ---
DATE OF CONSULTATION: 11/16/2016 HISTORY: This patient is known to me from surgery 2 weeks ago. She was admitted and underwent a total abdominal colectomy with ileoproctostomy due to recurrent acute diverticulitis. She was discharged to [facility] about 5 days ago. According to the family, there she has not really wanted to eat anything even though she has not complaint of abdominal pain terribly, she just simply did not have an appetite and did not want to eat. She then subsequent developed hypoglycemia, progressive confusion and then today was transported back because of her symptoms. Her past history is pertinent for arthritis and diabetes. Outside the hospital she takes metformin, Klonopin, omeprazole and diclofenac. Her family physician is Dr. Gant. She has had previous cholecystectomy, hysterectomy. At the time of her surgery she had quite extensive adhesions that we had to get through to get her colon out. Her preoperative CT did not really show significant superior mesenteric artery stenosis so chronic mesenteric ischemia has not been a consideration in her. She does have calcium in her aorta and has peripheral vascular disease. EXAM: Vital signs: She currently has a heart rate of 70 blood pressure 144/77, O2 sats 100%. She does respond. She is somewhat confused. She has bilateral breath sounds. Heart: Regular rate and rhythm. Abdomen: Is soft, inferiorly we did not elicit tenderness by examining her. She is somewhat cool in extremities. Her [place] [address], hemoglobin 10.2. Pro time 14. INR 1.3. Her pH is 6.9, pCO2 15, PO2 133, a base deficit of 28. Lactate level of 18. Potassium 5.5. BUN 89, creatinine 7.7. She has a large number of leukocytes in her urine. She is nitrite negative. ASSESSMENT: She has septic shock of uncertain etiology. One always must be concerned about intra- abdominal ischemia even though her presentation is not consistent with that. Her urine could be contributing. I will certainly follow along. Will place a Trilisate catheter for dialysis if needed. I think we need to reverse her acidosis before considering any other operative intervention. cc: Sourav Schilling MD
[2016-11-16] MEDS ORDERED: MORPHINE ONE (17:49)
--- NOTE | 2016-11-16 19:35 | CONSULTATION ---
DATE OF CONSULTATION: 11/16/2016 CONCLUSION: The patient is status post recent total colectomy with ileoproctostomy. She appears to be in severe sepsis. She has an elevated white count. She is in renal failure. She has acidosis. The patient on x-ray does have a left lung opacity but the radiologist feels like it is a fat pad and not pneumonia. Her blood cultures and urine culture are pending. She appears to be septic and could well be from an infection which just has not been identified yet. RECOMMENDATIONS: I agree with giving the patient vancomycin and meropenem pending culture results. The doses have been reduced because of the patient's renal failure. I am going to start the patient on micafungin in case she has a fungal overgrowth. DISCUSSION: No history can be obtained from the patient. She is delirious and no family member is present. As mentioned above, the patient recently had a total colectomy with ileoproctostomy. She was at [facility]. She became lethargic and confused and she was brought to the emergency room. She was found to have a lactic acid of 22 and she had acute renal injury. She was given broad-spectrum antibiotics and fluid for resuscitation and she was placed on Levophed. LAB AND X-RAY: Her lab studies thus far show a CBC with a white count of 34,310, hemoglobin 10.2, platelet count is 559,000. Creatinine is 6.9. The patient's creatinine is 6.6. The GFR is 6. The patient's blood gases show a pH of 6.9, a PO2 of 133, and a pCO2 of 15. Liver function studies are normal. CAT scan of the abdomen showed status post colectomy. There was a nonobstructing left renal stone. A chest x-ray showed opacity, as mentioned above, also granulomata were seen. PAST MEDICAL HISTORY: Positive for diabetes mellitus, gastroesophageal reflux disease, and arthritis. PAST SURGICAL HISTORY: Positive for recent total colectomy. She has also had a cholecystectomy, hysterectomy, partial stomach resection, bilateral rotator cuff tear repair, left foot surgery, cataract removal, and shoulder surgery. SOCIAL HISTORY: The patient quit smoking. She does not have a history of illicit drug use or alcohol use. She is . REVIEW OF SYSTEMS: Unable to be obtained. FAMILY HISTORY: Unobtainable. ALLERGIES: The patient's chart lists that she is allergic to sulfa. MEDICATIONS: The patient's chart lists that at home she was taking Klonopin, baclofen, Neurontin, Glucophage, Prilosec, MiraLAX, and Ultram. PHYSICAL EXAMINATION: Vital Signs: Temperature is 96.1 degrees, pulse 69, respirations 18, blood pressure 144/77. General: This is an ill-appearing, elderly female. She appears to be in no acute distress. She does seem delirious. Head, Ears, Nose, and Throat: No drainage noted from the nose or ears. She attempted to talk. I could not understand what she was saying. Neck: No meningismus. Thorax: No increased AP diameter of the chest. Lungs: Clear to auscultation. Cardiovascular: Regular heart rate. Abdomen: Soft and nontender. The midline incision is intact. In the right groin the patient has a Vas-Cath. Neurologic: As mentioned above, patient is delirious. She did not follow request to move her extremities. There was no tremor. Integument: No rash noted. Thank you for the consult. cc: Timothy Guerrero MD
[2016-11-16] MEDS: MYCAMINE 100 MG in NS 100 ML IV SCH (22:28)
[2016-11-17] MEDS: MORPHINE IV PRN ×2 (00:46→14:39)
[2016-11-17] MEDS: LEVOPHED 8 MG in D5 1/2 NS 250 ML IV SCH ×3 (01:28→20:07)
[2016-11-17] MEDS: SODIUM BICARBONATE 8.4% 150 MEQ in D5W 1,000 ML IV SCH ×2 (02:40→18:03)
[2016-11-17] MEDS: MERREM 500 MG in NS 50 ML IV SCH ×3 (04:09→19:58)
--- NOTE | 2016-11-17 05:44 | EKG Report ---
Test Performed on : 11/16/2016 08:13:03 AM Test Reason : AMS Blood Pressure : / mmHG Vent. Rate : 076 BPM Atrial Rate : 076 BPM P-R Int : 184 ms QRS Dur : 086 ms QT Int : 462 ms P-R-T Axes : 049 041 048 degrees QTc Int : 519 ms Normal sinus rhythm. Nonspecific ST abnormality Prolonged QT Abnormal ECG When compared with ECG of 01-NOV-2016 07:05, ST now depressed in Anterior leads QT has lengthened Unconfirmed Result
[2016-11-17] MEDS: HUMALOG SUBQ SCH ×4 (06:19→20:15)
[2016-11-17 06:25] LABS: BASO% 0.2 % (0.0-0.8); EOS# 0.05 X1000 (0.0-0.7); EOS% 0.3 % (0.0-10.0); HEMATOCRIT 28.6 % (37.0-47.0); HEMOGLOBIN 8.5 g/dL (12.0-16.0); IMM GRAN# 0.28 X1000 (0.0-0.04); IMM GRAN% 1.6 % (0.0-0.5); LYMPH# 2.14 X1000 (1.2-3.4); LYMPH% 12.2 % (20.5-51.1); MANUAL DIFF NEEDED? YES; MCH 29.7 PG (27-31); MCHC 29.7 g/dL (33-37); MONO# 3.55 X1000 (0.11-0.59); MONO% 20.3 % (1.7-9.3); MPV 10.4 FL (7.4-10.4); NEUT% 65.4 % (42.2-75.2); PLT 385 X1000 (130-400); RBC 2.86 XMIL (4.2-5.4)
[2016-11-17 06:29] LABS: HEMOGLOBIN A1C 5.6 % (4.8-6.0)
[2016-11-17 07:04] LABS: POTASSIUM 4.7 mmol/L (3.5-5.1)
[2016-11-17 07:31] LABS: CALCIUM 6.2 mg/dL (8.8-10.2)
[2016-11-17] MEDS ORDERED: CALCIUM GLUCONATE 4.65 MEQ in NS 50 ML IV ONE (07:34)
[2016-11-17 08:08] LABS: BANDS 6 % (0-1); LYMPHS 18 % (21-51); MONO 16 % (1-9)
[2016-11-17] MEDS ORDERED: NS 2,000 ML ONE (08:31)
[2016-11-17] MEDS ORDERED: HEPARIN ONE (08:31)
[2016-11-17] MEDS ORDERED: MAGNESIUM SULFATE 2 GM/S.W.I. 2 GM/50 ML IVPB IV ONE (08:36)
[2016-11-17] MEDS ORDERED: NEO-SYNEPHRINE 100 MG in NS 250 ML IV SCH (08:45)
[2016-11-17] MEDS: ALBUMIN 25% IV PRN (09:40)
--- NOTE | 2016-11-17 10:02 | Diag Imaging Result Doc PS360 ---
CHEST-1 VIEW - 11/17/2016 INDICATION: fluid volume status, no urine out TECHNIQUE: COMPARISON: 11/16/2016 FINDINGS: The lungs are normally expanded and clear. Heart size and mediastinal contours are normal. No pneumothorax or pleural effusion. IMPRESSION: Negative exam. Electronically signed by Andrea Bird 11/17/2016 10:00 AM
[2016-11-17] MEDS: NS 1,000 ML IV SCH (10:24)
[2016-11-17 10:59] LABS: HEPATITIS PROFILE ACUTE SEE COMMENTS
--- NOTE | 2016-11-17 11:18 | PROGRESS NOTE ---
DATE: 11/17/2016 SUBJECTIVE: This patient is about the same compared with yesterday. She is still confused. She is still on pressors. Family members at the bedside. I explained to them and the whole situation. Overall, this patient has poor prognosis. We will try to dialyze this patient today. Yesterday, a dialysis catheter was placed. OBJECTIVE: Vital Signs: Temperature 97.5 degrees, pulse 98, respiratory rate 25, blood pressure 91/48, oxygen saturation 98 on room air. HEENT: Head normocephalic. No trauma. PERRLA. Neck: Supple. No JVD. No masses. Central trachea. Chest: Clear to auscultation. Mild rales at the bases. Abdomen: Soft, nontender, nondistended. Extremities: No edema, no clubbing, no cyanosis. Neurological Examination: The patient is alert but she is not following commands. She is not answering any questions. She is confused. Laboratory: WBC 17.5, hemoglobin 8.5, hematocrit 28.6, platelets 385,000. Sodium 139, potassium 4.7, chloride 87, bicarbonate 7, BUN 86, creatinine 6.9, glucose 75, calcium 6.2, magnesium 1.2, albumin 2.3, plasma lactate 16.6. ASSESSMENT AND PLAN: 1. Septic shock. We will continue with the antibiotics. Infectious disease department is on board. We have a positive blood culture that showed gram-negative rods. Continue with the same management for now. 2. Acute kidney injury. Today, hopefully we will dialyze this patient. A dialysis catheter has been placed. 3. Metabolic acidosis, likely related to septic shock and acute kidney injury. Continue to monitor. 4. Metabolic encephalopathy, likely secondary to sepsis. 5. Microcytic anemia. Continue to monitor. 6. Type 2 diabetes. Continue with the sliding scale insulin. 7. Deep vein thrombosis prophylaxis with sequential compression devices and TEDs. 8. Hypoglycemia. I will replace the potassium. 9. Hypomagnesemia. I will replace the magnesium. CRITICAL CARE TIME: 45 minutes. cc: Vishal Carter MD
--- NOTE | 2016-11-17 14:50 | PROGRESS NOTE ---
DATE: 11/17/2016 TIME SEEN: 0800 hours. SUBJECTIVE: Ms. Hankins is resting quietly in bed. She remains on room air. Her family is at her bedside. She is in no acute distress. OBJECTIVE: Vital Signs: Her most recent vital signs, temperature is 97.5 degrees, blood pressure 91/48, heart rate 98, respirations are 24. She is currently on room air. Last recorded saturation is 98%. She has had 5403 in. She has had 75 mL out per Donohue catheter. LABS: Sodium 139, potassium 4.7, chloride is 87, CO2 7, BUN 86, creatinine 6.9 , glucose 75, anion gap 45, calcium 6.2, albumin 2.3, magnesium 1.2. Corrected calcium is 7.56 white count 17.52 hemoglobin 8.5, hematocrit 28.6, with a platelet count of 385,000. Renal ultrasound indicates the right kidney measuring 9 with a small simple cyst. Left kidney measuring 9.1. Her plasma lactate last drawn of 16.6. Patient had a FENa score with her urine electrolytes of 4.13%. IV: She currently has normal saline infusing at 75 mL an hour Levophed drip. She has a sodium bicarbonate drip and D5W. She has just received calcium gluconate bolus. Patient is currently on micafungin, vancomycin and meropenem. All to be renally dosed per pharmacy and Dr. Guerrero. PHYSICAL EXAMINATION: General: This is a 76-year-old white female. She appears chronically ill. She is in no acute distress. Skin: Warm and dry. HEENT: Normocephalic, atraumatic. Pupils are equal. Conjunctiva is pale. Mucous membranes are dry. Neck: Supple. Trachea midline. No JVD. Cardiovascular: Regular rate and rhythm. No appreciable murmur or gallop today. Lungs: Clear to auscultation anteriorly. Diminished breath sound right base, otherwise on room air. Abdomen: Midline incision that is clean dry and intact. Steri-Strips remain intact. Hypoactive bowel sounds. Had to listen for a good 3-4 minutes. Mild tenderness on palpation. Genitourinary: Donohue catheter remains in place. Genitourinary not inspected. Minimal urine out. Integumentary: No rashes or lesions noted. Midline incision to abdomen as inspected. Neurological: Patient is awake to person. She does make eye contact but is unable to follow commands. ASSESSMENT AND PLAN: 1. Acute kidney injury multifactorial. Patient has made minimal urine in the last 24 hours. She is in fluid volume overload of 5.4 L. She remains in acidosis. We have spoken with the family. She has a Vas-Cath placed per Dr. Schilling to her right groin. This remains dry and intact. We have discussed starting dialysis today, low flow. We will place her on SLED. She is to be on a 4 K bath, dialyze her for 8 hours, place her on a 30 bicarbonate. We will attempt 2 L of ultrafiltration. Because of her hypotension, we will give any 25 g of albumin to start her dialysis and may possibly use 25 g 3-4 hours into the treatment if blood pressure remains low. 2. Septic shock. Patient is currently on Levophed and normal saline. This is also multifactorial. She is currently on renal dosed antibiotics per Dr. Guerrero. We have indicated that if she needs further support that we can add Daniel-Synephrine drip during her dialysis treatments. 3. Severe acidosis. Patient continues with lactic acidosis, level now down to 16.6 with an anion gap greater than 45 and her CO2 of 7. No ABGs have been repeated today. Again, we will plan for correction on dialysis and check labs in the a.m. 4. Electrolytes. These are currently stable. 5. Anemia. This remains low but stable. 6. Leukocytosis. Again, patient is in septic shock. She is followed by Dr. Guerrero. She is currently on renal dosed antibiotics with no indications for changes per renal. I would to thank you for allowing us to follow with this patient. Dictated by STEVE Edwards for Arnaud Doan MD cc: STEVE Edwards MD [facility]
[2016-11-17] MEDS: MYCAMINE 100 MG in NS 100 ML IV SCH (21:50)
[2016-11-18] MEDS: NS 1,000 ML IV SCH ×2 (01:00→10:55)
[2016-11-18] MEDS: MERREM 500 MG in NS 50 ML IV SCH ×3 (04:05→19:35)
[2016-11-18] MEDS: HUMALOG SUBQ SCH ×4 (06:41→21:25)
[2016-11-18 06:42] LABS: ALBUMIN 2.2 g/dL (3.5-5.0); CALCIUM 6.4 mg/dL (8.8-10.2); MAGNESIUM 1.7 mg/dL (1.5-2.7); POTASSIUM 4.4 mmol/L (3.5-5.1)
--- NOTE | 2016-11-18 07:36 | PROGRESS NOTE ---
DATE: 11/18/2016 PRESENT ILLNESS: The patient is status post total colectomy. She became septic. Yesterday, the blood culture results indicated the patient had a gram-negative danie bacteremia. The urine culture is pending. MEDICATIONS: I am going to keep .on with meropenem I have discontinued micafungin and vancomycin. PHYSICAL EXAMINATION: Vital Signs: Temperature is 99.3 degrees, pulse 82, respirations 18, blood pressure 110/48. Generally: This is an ill-appearing elderly female. She is in no acute distress, however. Lungs: Clear to auscultation. Cardiovascular: Regular heart rate. Abdomen: Soft and not tender. The patient's midline incision is intact. Groin: In the patient's right groin, there is a Vas-Cath present. The site is not swollen or erythematous. Neurologic: The patient is in somewhat of a delirium. She did not follow request to move her extremities. She did not answer questions. LAB AND X-RAY: As mentioned above, the patient's blood culture is growing gram-negative danie. The urine culture is pending. There is no new radiographic study. CBC yesterday showed a white count of 17,520, hemoglobin 8.5, and platelet count 385,000. Creatinine is 6.9. The GFR is 6. Hepatitis panel is nonreactive. ASSESSMENT AND PLAN: Patient has gram-negative danie bacteremia. I am going to continue meropenem. I have discontinued vancomycin and Zosyn. The urine culture is pending. COMORBIDITIES: Include the fact she is elderly. She has had recent surgery, namely her colectomy and the patient also has diabetes mellitus and gastroesophageal reflux disease. cc: Timothy Guerrero MD
[2016-11-18] MEDS ORDERED: NS 2,000 ML ONE (07:59)
[2016-11-18] MEDS ORDERED: HEPARIN ONE (07:59)
[2016-11-18] MEDS ORDERED: CALCIUM GLUCONATE 4.65 MEQ in NS 50 ML IV ONE (08:00)
[2016-11-18] MEDS ORDERED: ALBUMIN 25% ONE (08:22)
--- NOTE | 2016-11-18 08:56 | Diag Imaging Result Doc PS360 ---
EXAM: CHEST-PORTABLE HISTORY: chest congestion TECHNIQUE: AP portable at 0844 COMMENT: Considering differences in technique there has been no significant change since 11/17/2016. The lungs appear to be clear. The heart and pulmonary vascularity are within normal limits. IMPRESSION: Stable chest. Electronically signed by Evan Knight 11/18/2016 8:54 AM
[2016-11-18] MEDS ORDERED: DULCOLAX PR ONE (09:00)
[2016-11-18 09:17] LABS: BASO% 0.2 % (0.0-0.8); EOS# 0.01 X1000 (0.0-0.7); EOS% 0.2 % (0.0-10.0); HEMATOCRIT 24.5 % (37.0-47.0); HEMOGLOBIN 7.7 g/dL (12.0-16.0); IMM GRAN# 0.08 X1000 (0.0-0.04); IMM GRAN% 1.2 % (0.0-0.5); LYMPH# 0.66 X1000 (1.2-3.4); LYMPH% 10.2 % (20.5-51.1); MANUAL DIFF NEEDED? YES; MCH 29.8 PG (27-31); MCHC 31.4 g/dL (33-37); MONO# 0.88 X1000 (0.11-0.59); MONO% 13.6 % (1.7-9.3); MPV 10.7 FL (7.4-10.4); NEUT% 74.6 % (42.2-75.2); PLT 113 X1000 (130-400); RBC 2.58 XMIL (4.2-5.4)
[2016-11-18 09:35] LABS: BANDS 24 % (0-1); LYMPHS 8 % (21-51); MONO 8 % (1-9); NRBC 1 % (0-0)
[2016-11-18] MEDS: CLINIMIX E 4.25%-5% SOLUTION 1,000 ML IV SCH (09:38)
[2016-11-18] MEDS: ALBUMIN 25% IV PRN (10:26)
[2016-11-18] MEDS: SODIUM BICARBONATE 8.4% 150 MEQ in D5W 1,000 ML IV SCH (10:55)
[2016-11-18] MEDS: DUONEB (A & A) INH PRN ×4 (11:29→23:20)
[2016-11-18] MEDS: MORPHINE IV PRN ×3 (11:34→20:39)
--- NOTE | 2016-11-18 12:55 | PROGRESS NOTE ---
DATE: 11/18/2016 SUBJECTIVE: This patient looks a little bit better compared with yesterday. She is more alert. She is sleepy, but arousable. She is following commands on and off. She is mumbling; I cannot understand what she is saying. Family members at the bedside, her . She is getting dialysis today again. OBJECTIVE: Vital Signs: Temperature 98.5 degrees, pulse 90, respiratory rate 24, blood pressure 136/77, oxygen saturation 100% on 2 L of nasal cannula. HEENT: Head normocephalic. No trauma. PERRLA. Neck: Supple. No JVD. No masses. Central trachea. Chest: Bilateral crackles and mild rales at the bases. Abdomen: Soft, nontender, nondistended. Extremities: No edema. No clubbing. No cyanosis. Neurological examination: The patient is sleepy, but arousable. She is following commands on and off. She is trying to talk, but she is weak. LABORATORY: WBC 6.4, hemoglobin 7.7, hematocrit 24.5, platelet 113. Sodium 139, potassium 4.4, chloride 99, bicarbonate 22, BUN 30, creatinine 2.7, glucose 262, calcium 6.4, magnesium 1.7, phosphorus 2.7 and albumin 2.2. ASSESSMENT AND PLAN: 1. Septic shock. She has been off pressors since this morning. We have a gram-negative danie bacteremia. Infectious Disease Department is following this patient. 2. Acute kidney injury. Continue with dialysis. 3. Metabolic acidosis likely related to septic shock and acute kidney injury. Continue to monitor. This is getting better. 4. Metabolic encephalopathy likely secondary to sepsis. 5. Microcytic anemia. Continue to monitor. 6. Type 2 diabetes. Continue with sliding scale insulin. 7. Deep vein thrombosis prophylaxis with sequential compression devices and thromboembolic device hoses. 8. Thrombocytopenia. We will monitor. 9. Hypokalemia, resolved. 10. Hypomagnesemia, resolved. 11. Hypocalcemia. I will replace the calcium today. CRITICAL CARE TIME: 45 minutes. cc: Vishal Carter MD
--- NOTE | 2016-11-18 13:43 | PROGRESS NOTE ---
DATE: 11/18/2016 DATE SEEN: 11/18/2016 TIME SEEN: 08:00 SUBJECTIVE: Ms. Hankins is resting quietly in bed. She is awake. She is more alert. She denies pain. No increased work of breathing. OBJECTIVE: Vital Signs: Her most recent vital signs are temperature 99.3 degrees, blood pressure 104/58, heart rate 89, respirations 20. She is on room air. Last recorded saturation 94%. She has had 4417 in, she has had 2205 out, with 2.1 L removed on dialysis yesterday. LABS: Sodium 139, potassium 4.4, chloride 99, CO2 22, BUN 30, creatinine 2.7, glucose 262. Her anion gap is 18, calcium 6.4, phosphorus 2.7, albumin 2.7, magnesium 1.7. Previous white count 17.5, with a hemoglobin of 8.5. Blood cultures were negative initially. PHYSICAL EXAMINATION: General: This is a 76-year-old white female. She is resting in bed. She appears chronically ill, though no acute distress. Skin: Warm and dry. HEENT : Normocephalic, atraumatic. Pupils are equal, though slightly sluggish. Conjunctiva is pale. She has PHONG. Mucous membranes are moist. Neck: Supple. Trachea midline. No jugular venous distention. Cardiovascular: She is regular rate and rhythm. She is without murmur or gallop today. Lungs: Clear to auscultation anteriorly. Equal excursion on room air. Abdomen: Midline incision is dry and intact with Steri-Strips. Hypoactive bowel sounds remain present, though you must listen for at least 3-4 minutes for auscultation. Mild tenderness on palpation. Genitourinary: Donohue catheter remains in place. Patient has had an improvement in her urine output. We will continue to monitor I's and O's. Neurological: She is awake. She is more aware to and alert to person. Integumentary: No other or lesions noted. ASSESSMENT AND PLAN: 1. Acute kidney injury. Again, this remains multifactorial. We will place the patient on SLED today. She is to be on a 4K for 8 hours, a 27 sodium bicarbonate bath and we will pull 2.5 L to help pull patient even today. We will again plan for SLED in the morning. We have given an order, if needed, 25 g of albumin, to start her dialysis treatment to maintain blood pressure. She is currently off her Levophed. 2. Septic shock. Patient has been weaned off of her Levophed. She remains on normal saline with sodium bicarbonate. We will start to decrease her sodium bicarbonate as her acidosis improves. 3. Severe acidosis. This is slowly corrected with her dialysis yesterday. Her anion gap has closed to 18. Her CO2 is up to 22. We have ordered a plasma lactate which is down to 3.8. Again, we will continue with correction on dialysis. 4. Electrolytes. These are stable. 5. Anemia. This remains low, but stable, with a hemoglobin of 7.7 and a hematocrit of 24.5. White count is 6.48, now with platelets at 113,000. We will defer to the primary care team for transfusion. 6. Leukocytosis. Again, this has improved. Secondary to septic shock. Her white count is now down to 6.48. She remains on renal dosed antibiotics per Dr. Guerrero. No need for changes or intervention. Surgery following. I would to thank you for allowing us to follow with this patient. Dictated by STEVE Edwards for Arnaud Doan MD cc: STEVE Edwards MD [facility]
[2016-11-19] MEDS: NS 1,000 ML IV SCH (00:12)
[2016-11-19] MEDS: MORPHINE IV PRN ×4 (01:45→20:52)
[2016-11-19] MEDS: DUONEB (A & A) INH PRN ×5 (03:25→23:04)
[2016-11-19] MEDS: MERREM 500 MG in NS 50 ML IV SCH ×4 (04:24→20:51)
[2016-11-19] MEDS: CLINIMIX E 4.25%-5% SOLUTION 1,000 ML IV SCH (05:04)
[2016-11-19] MEDS: HUMALOG SUBQ SCH ×4 (06:05→20:51)
[2016-11-19 06:25] LABS: BASO% 0.1 % (0.0-0.8); EOS# 0.06 X1000 (0.0-0.7); EOS% 0.9 % (0.0-10.0); HEMATOCRIT 24.2 % (37.0-47.0); HEMOGLOBIN 7.6 g/dL (12.0-16.0); IMM GRAN# 0.05 X1000 (0.0-0.04); IMM GRAN% 0.7 % (0.0-0.5); LYMPH# 0.74 X1000 (1.2-3.4); LYMPH% 11.1 % (20.5-51.1); MANUAL DIFF NEEDED? YES; MCHC 31.4 g/dL (33-37); MCV 95.7 FL (81-99); MONO# 0.83 X1000 (0.11-0.59); MONO% 12.4 % (1.7-9.3); MPV 10.5 FL (7.4-10.4); NEUT% 74.8 % (42.2-75.2); PLT 80 X1000 (130-400); RBC 2.53 XMIL (4.2-5.4)
[2016-11-19 06:43] LABS: ALBUMIN 2.7 g/dL (3.5-5.0); MAGNESIUM 1.8 mg/dL (1.5-2.7); POTASSIUM 4.3 mmol/L (3.5-5.1)
[2016-11-19 06:58] LABS: BANDS 30 % (0-1); LYMPHS 14 % (21-51); MONO 8 % (1-9)
[2016-11-19] MEDS ORDERED: NS 2,000 ML ONE (07:32)
[2016-11-19] MEDS ORDERED: HEPARIN ONE (07:32)
[2016-11-19 07:40] LABS: CALCIUM 6.9 mg/dL (8.8-10.2)
[2016-11-19] MEDS ORDERED: ALBUMIN 25% IV ONE (07:50)
[2016-11-19] MEDS ORDERED: ALBUMIN 25% ONE (07:54)
--- NOTE | 2016-11-19 13:02 | PROGRESS NOTE ---
DATE: 11/19/2016 SUBJECTIVE: Patient is sitting up in bed. She is awake and alert. She is in no acute distress. She does have some mild abdominal pain to the incision site. OBJECTIVE: Vital Signs: Temperature 98.2 degrees, pulse 96, respiratory rate 14, blood pressure 120/65. Intake 2.6 L. Output 3.4 L. Of this urine output was 675 mL. The patient is still 6 L positive over duration of hospitalization. PHYSICAL EXAMINATION: General: This is a elderly female sitting up in bed. Awake, alert, no acute distress. HEENT: Normocephalic, atraumatic. Oral mucosa moist. Neck: Supple. Trachea midline. No JVD. Cardiovascular: Regular rate and rhythm. There is no murmur or gallop appreciated. Pulmonary: She has equal excursion. She is clear bilaterally on 2 L nasal cannula. Abdomen: Soft with positive bowel sounds. She has midline incision with Steri-Strips with some mild tenderness to palpation. : Donohue catheter with yellow urine noted. Extremities: Trace pretibial edema. No clubbing, cyanosis. Integumentary: Skin is warm and dry otherwise. LAB DATA: WBC of 6.6, hemoglobin 7.6, hematocrit 24.2, platelet count of 80,000. Sodium 137, potassium 4.3, chloride 102, CO2 24, BUN 22, creatinine 1.7. ASSESSMENT AND PLAN: 1. Acute kidney injury with improvement. The patient's urine output has picked up. She is still about 6 L positive overall. We will plan to SLED for dialysis today on a regular sodium, regular bicarbonate bath. Will adjust for a goal of 2-3 L as tolerated. She is off pressor support at this time. 2. Hypoalbuminemia. Will give her 25 g today. Her albumin is 2.7. 3. Septic shock has improved. 4. Acidosis corrected. Continue on dialysis. 5. Electrolytes stable. 6. Anemia unchanged. Primary following. 7. Leukocytosis secondary to septic shock followed by primary Dr. Guerrero. Dictated by STEVE Mathis for Arnaud Doan MD cc: Arnaud Doan MD
--- NOTE | 2016-11-19 13:40 | PROGRESS NOTE ---
DATE: 11/19/2016 SUBJECTIVE: This patient looks much better today. She is alert. She is oriented x2. She is not oriented to time. She is able to recognize her . She is answering my questions and following commands. The urine output is getting a little bit better. So far, she has been making 625 mL of urine. She is still on dialysis. OBJECTIVE: Vital Signs: Temperature 97.9 degrees, pulse 98, respiratory rate 14, blood pressure 130/70, O2 saturation 98 on 2L nasal cannula. HEENT: Head normocephalic. No trauma. PERRLA. Neck: Supple. No JVD. No masses. Central trachea. Chest: Bilateral rhonchi, scattered. Abdomen: Soft, nontender, nondistended. No hepatosplenomegaly. Extremities: No edema. No clubbing. No cyanosis. Neurologic: The patient is alert. She is oriented x2. She is not oriented to time. She is able to recognize family members and she is able to keep up a conversation. She moves all 4 extremities. She is still weak. LABORATORY: WBC 6.6, hemoglobin 7.6, hematocrit 24.2, platelets 80,000. Sodium 137, potassium 4.3, chloride 102, bicarbonate 24, BUN 22, creatinine 1.7, glucose 304, calcium 6.9, magnesium 1.8, albumin 2.7. ASSESSMENT AND PLAN: 1. Septic shock. This is getting better. She is not on pressors. We have a positive blood culture and urine culture that showed Escherichia coli. The urine culture also showed Enterococcus faecalis. She is on meropenem and the infectious Disease Department is following this patient. 2. Acute kidney injury. She is making more urine. Continue with dialysis for now. 3. Metabolic acidosis, likely related to septic shock and acute kidney injury. Basically, this is much better, resolved. 4. Macrocytic anemia. We will continue to monitor. 5. Thrombocytopenia. We will monitor. She is not on any kind of anticoagulation or heparin. 6. Hypocalcemia. Aware. She is getting dialysis right now. 7. Metabolic encephalopathy. Resolved. 8. Type 2 diabetes. We will continue with sliding scale for now and I will add 10 units of Lantus. 9. Deep vein thrombosis prophylaxis with SCDs and ALEX hose. CRITICAL CARE TIME: Thirty-five minutes. cc: Vishal Carter MD
[2016-11-19] MEDS: SODIUM BICARBONATE 8.4% 150 MEQ in D5W 1,000 ML IV SCH ×2 (13:42→16:03)
--- NOTE | 2016-11-19 17:57 | PROGRESS NOTE ---
DATE: 11/19/2016 PRESENT ILLNESS: The patient is status post colectomy. She is septic with what appears to be an E coli and enterococcal urinary tract infection and an E coli bacteremia originating from the urinary tract infection. MEDICATIONS: The patient is on meropenem as single agent. PHYSICAL EXAMINATION: Vital Signs: Temperature is 98.1 degrees, pulse is 106, respiration 22, blood pressure 140/75. General: The patient is in no acute distress. She is not uncomfortable. Lungs: Clear to auscultation. Cardiovascular: Regular heart rate. Abdomen: Soft and nontender. The patient's midline incision is intact and is not draining. In the right groin there is a Vas-Cath catheter for dialysis. Neurologic: Patient is awake. She can move her extremities. LAB AND X-RAY: The patient's blood and urine both grew out Escherichia coli. It is an extended spectrum beta lactamase producing E coli. The urine also grew out enterococcus. The creatinine is 1.7. The CBC shows a white count of 6680, hemoglobin 7.6, and platelet count 80,000. Chest x- ray shows clear lung yeh. Creatinine is 1.7. The GFR is 29. ASSESSMENT AND PLAN: I plan to continue meropenem. COMORBIDITY: Patient is elderly. She recently had surgery, namely, a colectomy. She also has diabetes mellitus and gastroesophageal reflux disease. It should be noted the patient's platelets are 80,000. cc: iTmothy Guerrero MD
[2016-11-20] MEDS: MORPHINE IV PRN ×3 (00:51→20:28)
[2016-11-20] MEDS: CLINIMIX E 4.25%-5% SOLUTION 1,000 ML IV SCH ×2 (00:56→20:29)
[2016-11-20] MEDS: NS 1,000 ML IV SCH (00:56)
[2016-11-20] MEDS ORDERED: KLONOPIN PO ONE ×2 (01:47→23:09)
[2016-11-20] MEDS: MERREM 500 MG in NS 50 ML IV SCH ×3 (03:54→20:28)
[2016-11-20] MEDS: HUMALOG SUBQ SCH ×4 (07:16→20:28)
[2016-11-20] MEDS: DUONEB (A & A) INH PRN ×3 (07:36→19:18)
[2016-11-20 07:49] LABS: CALCIUM 7.3 mg/dL (8.8-10.2)
[2016-11-20 07:50] LABS: ALBUMIN 2.8 g/dL (3.5-5.0); CALCIUM 7.4 mg/dL (8.8-10.2); POTASSIUM 5.7 mmol/L (3.5-5.1)
[2016-11-20 07:54] LABS: BASO% 0.4 % (0.0-0.8); EOS# 0.03 X1000 (0.0-0.7); EOS% 0.3 % (0.0-10.0); HEMATOCRIT 26.2 % (37.0-47.0); HEMOGLOBIN 8.3 g/dL (12.0-16.0); IMM GRAN# 0.44 X1000 (0.0-0.04); LYMPH% 10.8 % (20.5-51.1); MANUAL DIFF NEEDED? YES; MCH 30.2 PG (27-31); MCHC 31.7 g/dL (33-37); MCV 95.3 FL (81-99); MONO# 0.94 X1000 (0.11-0.59); MONO% 8.4 % (1.7-9.3); MPV 11.6 FL (7.4-10.4); NEUT% 76.1 % (42.2-75.2); PLT 96 X1000 (130-400); RBC 2.75 XMIL (4.2-5.4)
[2016-11-20] MEDS ORDERED: NS 2,000 ML MISC PRN (08:06)
[2016-11-20 08:13] LABS: BANDS 5 % (0-1); EOS 1 % (1-10); LYMPHS 5 % (21-51); MONO 6 % (1-9)
[2016-11-20 08:14] LABS: LARGE PLATELETS OCCASIONAL; STOMATOCYTES OCCASIONAL
[2016-11-20] MEDS ORDERED: HEPARIN ONE (08:17)
[2016-11-20] MEDS ORDERED: NS 2,000 ML ONE (08:17)
[2016-11-20] MEDS ORDERED: LANTUS SUBQ SCH (09:00)
[2016-11-20] MEDS: LANTUS SUBQ SCH (09:00)
--- NOTE | 2016-11-20 11:21 | PROGRESS NOTE ---
DATE: 11/20/2016 SUBJECTIVE: Patient is sitting up in bed. She is awake and alert. She is on room air. She is no longer on pressor support. OBJECTIVE: Vital Signs: Temperature 98.4 degrees, pulse 113, respiratory rate 18, blood pressure 131/77. Intake 2.6 L. Output 4.5 L. She had urine output of 1 L yesterday. General: Elderly female, sitting up in bed. Awake and alert, in no acute distress. HEENT: Normocephalic and atraumatic. Oral mucosa moist. PHONG, conjunctivae pink. Neck: Supple. Trachea midline. There is no JVD. Cardiovascular: Regular rate and rhythm. No murmur or gallop is appreciated. Pulmonary: Equal excursion. She is clear bilaterally on room air. There is no increased work of breathing noted. Abdomen: Soft. She has scant tenderness to the abdomen. She has positive bowel sounds. Genitourinary: Donohue catheter with clear yellow urine noted. Extremities: No clubbing, cyanosis, or edema today. Integumentary: Skin is warm and dry. LABORATORY DATA: WBC of 11.3, hemoglobin 8.3, hematocrit 26.2, and platelet count of 96,000. Sodium 137, potassium 5.7, chloride 102, CO2 of 19, BUN 31, creatinine 1.6, albumin 2.6. ASSESSMENT AND PLAN: 1. Acute kidney injury with continued improvement. Her urine output has continued to pick remover appreciably. We will dialyze her again today secondary to the fact that she is still about a 5 L positive overall. Her condition has stabilized to the point that we can dialyze her on a slow flow regular hemodialysis 2 K bath with a 3-4 L removal if tolerated, 3-1/2-hour treatment. 2. Hypoalbuminemia. Blood pressures have been stable. Fluid volumes are acceptable. We will go ahead and give 25 g of albumin on dialysis. 3. Septic shock. Resolved. 4. Acidosis. Corrected. 5. Anemia, followed by primary. 6. Leukocytosis secondary to previous septic shock. Is on appropriate antibiotics, per Primary and Infectious Disease. No changes needed. Dictated by STEVE Mathis for Arnaud Doan MD cc: Arnaud Doan MD
--- NOTE | 2016-11-20 13:00 | PROGRESS NOTE ---
DATE: 11/20/2016 SUBJECTIVE: This patient is getting better. She is alert. She is oriented x3 today. She is following commands and answering most of my questions. Urine output is getting better. Yesterday she had 675 mL and today 1000 mL, will continue to monitor. She is still on dialysis. OBJECTIVE: Vital Signs: Temperature 98.4 degrees, pulse 110, respiratory rate 20, blood pressure 141/86, oxygen saturation 98 on 2 L of nasal cannula. HEENT: Head normocephalic. No trauma. PERRLA. Neck: Supple. No JVD. No masses. Central trachea. Chest: Bilateral scattered rhonchi. Abdomen: Soft, nontender, nondistended. No hepatosplenomegaly. Extremities: No edema. No clubbing. No cyanosis. Neurological: The patient is alert and oriented x3. She is able to recognize family members. She is able to keep up a conversation, she moves all 4 extremities. She is still weak. LABORATORY: WBC 11.1, hemoglobin 8.3, hematocrit 26.2, platelets 96,000. Sodium 138, potassium 5.7, chloride 102, bicarbonate 19, BUN 31, creatinine 1.7, glucose 314, calcium 7.3, phosphorus 2.7, albumin 2.8. ASSESSMENT AND PLAN: 1. Septic shock, resolved. We have a positive blood and urine culture that showed Escherichia coli. Urine culture also showed Enterococcus faecalis. This patient is on meropenem and Infectious Disease Department is following this patient. 2. Acute kidney injury. She is making more urine so far, 1 L. Continue with dialysis for now. 3. Metabolic acidosis resolved likely secondary to septic shock and acute kidney injury. 4. Macrocytic anemia aware. 5. Thrombocytopenia. Will monitor. Hematology has been consulted. 6. Hypocalcemia resolved. 7. Metabolic encephalopathy resolved. 8. Type 2 diabetes. Continue with sliding scale. I increased the dose of Lantus from 10 to 25 units daily. 9. Deep vein thrombosis prophylaxis provided by SCDs and ALEX vera. CRITICAL CARE TIME: 35 minutes. cc: Vishal Carter MD
[2016-11-21] MEDS: MERREM 500 MG in NS 50 ML IV SCH ×3 (04:43→22:07)
[2016-11-21 05:55] LABS: ALBUMIN 2.6 g/dL (3.5-5.0); CALCIUM 7.3 mg/dL (8.8-10.2); POTASSIUM 5.1 mmol/L (3.5-5.1)
[2016-11-21] MEDS: HUMALOG SUBQ SCH ×4 (06:36→22:28)
[2016-11-21] MEDS ORDERED: PRILOSEC PO SCH (07:00)
[2016-11-21 07:01] LABS: BASO% 0.7 % (0.0-0.8); EOS# 0.19 X1000 (0.0-0.7); EOS% 1.9 % (0.0-10.0); HEMATOCRIT 26.9 % (37.0-47.0); HEMOGLOBIN 8.4 g/dL (12.0-16.0); IMM GRAN# 0.96 X1000 (0.0-0.04); IMM GRAN% 9.7 % (0.0-0.5); LYMPH# 1.52 X1000 (1.2-3.4); LYMPH% 15.3 % (20.5-51.1); MANUAL DIFF NEEDED? YES; MCH 29.5 PG (27-31); MCHC 31.2 g/dL (33-37); MCV 94.4 FL (81-99); MONO# 1.34 X1000 (0.11-0.59); MONO% 13.5 % (1.7-9.3); MPV 11.9 FL (7.4-10.4); NEUT% 58.9 % (42.2-75.2); PLT 114 X1000 (130-400); RBC 2.85 XMIL (4.2-5.4)
[2016-11-21] MEDS: DUONEB (A & A) INH PRN ×5 (08:12→23:42)
[2016-11-21] MEDS ORDERED: INSULIN PEN NEEDLES ONE (08:38)
[2016-11-21] MEDS: LANTUS SUBQ SCH (08:43)
[2016-11-21] MEDS ORDERED: NON-FORMULARY MED (Omeprazole [Prilosec] 40 MG) PO SCH (09:00)
[2016-11-21] MEDS ORDERED: VANCOMYCIN 1 GM/NS 1 GM/250 ML IVPB IV SCH (09:00)
--- NOTE | 2016-11-21 09:54 | PROGRESS NOTE ---
DATE: 11/21/2016 SUBJECTIVE: Ms. Hankins presented on 11/16/2016. She came with altered mental status. A 76-year- old with a history of diabetes mellitus, recently had exploratory laparotomy, total abdominal colectomy with ileoproctostomy per Dr. Schilling on 10/12/2016. He was discharged on 11/11/2016. Sent to [facility]. At this time, the patient presented back on 11/16/2016 complaining of being lethargic, confused, unable to answer questions. History is obtained from the chart. There is no family at the time. He became increasingly lethargic and confused. Showed prolonged increase in BUN and creatinine, and sent here for evaluation. Presented with what appeared to be septic shock, profound leukocytosis, hypotension refractory to IV fluids and vasopressor. Was requiring vasopressors. Some hypothermia. Had acute kidney injury, metabolic encephalopathy, macrocytic anemia. PHYSICAL EXAMINATION: Vital Signs: Today, temperature 97.3 degrees, pulse 101, respirations 22, and blood pressure 117/93. CVP less than 6 cm. Lungs: Clear in all lung yeh. Cardiovascular Examination: Regular rhythm and rate without murmur or S3. Is and Os: Urine output was 6.5 L. LAB: White count 9920, hematocrit was 26, platelet count 114,000, MCV is 94. Sodium 136, potassium 5.1, chloride 99, bicarb 23, BUN 43, creatinine 1.6. ASSESSMENT AND PLAN: 1. Septic shock, resolved. Positive blood and urine culture which showed Escherichia coli. Urine culture showed Enterococcus faecalis. The patient is on meropenem. Dr. Guerrero is following. 2. Acute kidney injury. Urine output is improved and this is improving. 3. Metabolic acidosis, resolved, likely secondary to septic shock. 4. Microcytic anemia. Aware. 5. Thrombocytopenia. Continue to monitor. Stable. 6. Hypocalcemia, resolved. 7. Metabolic encephalopathy, resolved. 8. Diabetes mellitus type 2. Continue to follow patterned sugars. 9. On deep venous thrombosis prophylaxis. 10. Review of lab. I do not see any change at this point. cc: Rodney Buenrostro MD
[2016-11-21 10:07] LABS: BANDS 2 % (0-1); EOS 2 % (1-10); LYMPHS 20 % (21-51); MONO 4 % (1-9)
[2016-11-21] MEDS: MORPHINE IV PRN ×3 (11:16→22:01)
--- NOTE | 2016-11-21 12:25 | PROGRESS NOTE ---
DATE: 11/21/2016 SUBJECTIVE: The patient is resting in bed. She is awake and alert. She is in no acute distress this morning. OBJECTIVE: Vital Signs: Temperature 97.3 degrees, pulse 101, respiratory rate 22, blood pressure 117/93. Intake 2.4 L. Output 3.5 L. Urine output was about 650 mL. General: Elderly female resting in bed. She is awake, alert, in no acute distress. HEENT: Normocephalic, atraumatic. Her oral mucosa is moist. Neck: Supple. There is no jugular venous distention. Cardiovascular: Reveals a regular rate and rhythm. Pulmonary: She has equal excursion. She is clear bilaterally. She is on room air. Abdomen: Soft, positive bowel sounds. Genitourinary: She has a Donohue catheter with clear yellow urine. Extremities: No clubbing, cyanosis or edema. She is moving all extremities. Integumentary: Skin is warm and dry. LAB DATA: WBC of 9.9, hemoglobin 8.4, sodium 136, potassium 5.1, CO2 23, creatinine 1.6, albumin 2.6. ASSESSMENT AND PLAN: 1. Acute kidney injury with continued improvement. She underwent dialysis yesterday and finished most of her treatment prior to her access clotting off. We were able to remove almost 3 L of fluid during that time. Because her urine output has been adequate and her renal function has been improving, we will simply plan to hold dialysis, Tuesday check her labs and see where we stand. If her renal function has improvement over this next 48 hours, we will discontinue her dialysis access and just need to follow as an outpatient. 2. Hypoalbuminemia. Had been giving albumin during dialysis. Continue to monitor. Patient may need some intravenously. 3. Electrolytes, acid-base balance, anemia. These are all acceptable. 4. Leukocytosis secondary to previous septic shock, has resolved. Dictated by STEVE Mathis for Arnaud Doan MD cc: Arnaud Doan MD
[2016-11-21] MEDS: CLINIMIX E 4.25%-5% SOLUTION 1,000 ML IV SCH (16:27)
[2016-11-21] MEDS: NS 1,000 ML IV SCH (16:27)
[2016-11-21] MEDS: KLONOPIN PO PRN (22:01)
[2016-11-21] MEDS: PROTONIX IV SCH (22:11)
[2016-11-21] MEDS: SODIUM CHLORIDE 0.9% INJ SCH (22:17)
[2016-11-22] MEDS ORDERED: HEPARIN 25,000 UNITS/D5W 25,000 UNIT/250 ML IV.SOLN IV SCH (00:30)
[2016-11-22] MEDS: MORPHINE IV PRN ×7 (01:58→22:29)
[2016-11-22] MEDS: DUONEB (A & A) INH PRN ×6 (03:42→23:32)
[2016-11-22] MEDS: MERREM 500 MG in NS 50 ML IV SCH ×3 (05:10→20:09)
[2016-11-22 07:43] LABS: ALBUMIN 2.7 g/dL (3.5-5.0); CALCIUM 7.5 mg/dL (8.8-10.2); POTASSIUM 4.7 mmol/L (3.5-5.1)
[2016-11-22] MEDS: HUMALOG SUBQ SCH ×3 (07:57→16:08)
[2016-11-22] MEDS ORDERED: INSULIN PEN NEEDLES ONE (09:11)
[2016-11-22] MEDS: LANTUS SUBQ SCH (09:18)
[2016-11-22] MEDS ORDERED: HEPARIN IV ONE (09:35)
[2016-11-22] MEDS: HEPARIN 25,000 UNITS/D5W 25,000 UNIT/250 ML IV.SOLN IV SCH ×2 (09:45→15:29)
[2016-11-22] MEDS: MAALOX PLUS LIQUID PO PRN (09:46)
--- NOTE | 2016-11-22 11:19 | PROGRESS NOTE ---
DATE: 11/22/2016 SUBJECTIVE: This is a 76-year-old. She had some swelling in the right leg. DVT was diagnosed and was put on some heparin. OBJECTIVE: Vital signs: Temp 97.5 degrees, pulse 101, respirations 16, blood pressure 106/59. HEENT: Pupils are equal and round. Lungs: Clear in all lung yeh. Cardiovascular: Regular rhythm and rate without murmur or S3. Abdomen: Soft. Skin: Warm and dry. Intake and output: Urine output was 2400 mL. LAB: Reviewed from yesterday. Hemoglobin 8, hematocrit 26. Chemistries from this morning, sodium 136, potassium 4.7, chloride 98, BUN 57, creatinine 1.7, glucose 217, 241, 158, 232. ASSESSMENT AND PLAN: 1. Acute kidney injury, continues improvement. Underwent dialysis. Finished most of her treatments and it looks like we can hold off on dialysis at this point. 2. Right leg swelling, deep vein thrombosis. Patient on heparin. 3. Status post a right femoral vein Vas-Cath placement. She is also status post recent total colectomy. 4. Diabetes mellitus. Follow sugars. Continue physical therapy. cc: Rodney Buenrostro MD
[2016-11-22 12:10] LABS: INR 1.1; PROTIME 11.6 Seconds (9.2-11.7)
[2016-11-22] MEDS ORDERED: NS 250 ML ONE (13:00)
[2016-11-22] MEDS: CLINIMIX E 4.25%-5% SOLUTION 1,000 ML IV SCH (15:12)
[2016-11-22 15:35] LABS: IRON SATURATION 12 %; TIBC 213 ug/dL; TOTAL IRON 25 ug/dL (49-151); UNBOUND IRON 188 ug/dL (112-346)
--- NOTE | 2016-11-22 15:42 | PROGRESS NOTE ---
DATE: 11/22/2016 SUBJECTIVE: Patient is sitting up eating breakfast. She has no complaints this morning. She has some swelling in her right leg noted yesterday afternoon and had a DVT was noted. OBJECTIVE: Vital Signs: Temperature 97 degrees, pulse 98, respiratory rate 14 , blood pressure 113/62, intake 2.6 L, output 1.3 L. OBJECTIVE: General: This is a elderly female sitting up in bed. She is awake , alert, no acute distress. HEENT: Normocephalic, atraumatic. Oral mucosa is moist. Neck: Supple. No JVD. Cardiovascular: Regular rate and rhythm. No murmur noted. Pulmonary: Equal excursion. She is on room air. She has no increased work of breathing noted. Clear. Abdomen: Soft, positive bowel sounds. : Not inspected. Has Donohue catheter. Extremities: She has edema to the right lower extremity. She is moving all extremities. Integumentary: Skin is warm and dry otherwise. LAB DATA: Sodium 136, potassium 4.7, CO2 27, BUN 57, creatinine 1.7. ASSESSMENT AND PLAN: 1. Acute kidney injury with continued improvement. Her baseline creatinine is 1.2. She has not had dialysis now in 3 days. We will have her Vas-Cath removed. 2. Deep vein thrombosis. This was noted yesterday afternoon, evening and she was started on a heparin drip. 3. Electrolytes, acid-base balance. These are acceptable. 4. Previous low platelets now corrected. We will still go ahead and ordered a HIT panel. Seen, data reviewed, discussed with Tory Villanueva on 11/22/16. I agree with the above assessment and plan of care. rg Dictated by STEVE Mathis for Arnaud Doan MD cc: Arnaud Doan MD [facility]
[2016-11-22] MEDS: NS 1,000 ML IV SCH (16:09)
[2016-11-22] MEDS: PROTONIX IV SCH (21:00)
[2016-11-22] MEDS ORDERED: HEPARIN IV PRN (22:22)
[2016-11-22] MEDS: KLONOPIN PO PRN (22:29)
[2016-11-23] MEDS: HUMALOG SUBQ SCH ×5 (01:59→21:13)
[2016-11-23] MEDS: DUONEB (A & A) INH PRN ×2 (03:22→07:09)
[2016-11-23] MEDS: MORPHINE IV PRN ×6 (03:41→22:47)
[2016-11-23] MEDS: MERREM 500 MG in NS 50 ML IV SCH ×3 (03:41→19:23)
[2016-11-23 04:12] LABS: ALBUMIN 2.7 g/dL (3.5-5.0); CALCIUM 8.2 mg/dL (8.8-10.2)
--- NOTE | 2016-11-23 04:55 | PROGRESS NOTE ---
DATE: 11/22/2016 PRESENT ILLNESS: The patient is status post colectomy. She became septic due to an Escherichia coli and enterococcal urinary tract infection, and an Escherichia coli bacteremia originating from the urinary tract infection. MEDICATIONS: The patient is on meropenem. This is day 6 of meropenem. PHYSICAL EXAMINATION: Vital Signs: Temperature is 97.9 degrees, pulse 100, respirations 13. Blood pressure is 100/62. Generally: This is a somewhat ill-appearing, elderly female. She looks much better though than she did last week. Neurologic: She is alert. She can move her extremities but she is weak. Lungs: Clear to auscultation. Cardiovascular: Heart rate is regular. Abdomen: Soft and not tender. Extremities: The right leg is swollen. She has a DVT in that leg. The dialysis catheter has been removed from that leg. Patient has a PICC in her right arm and the site is not erythematous or tender. LAB AND X-RAY: There is no new x-ray finding. The CBC shows a white count of 9920, hemoglobin 8.4, and platelet count 114,000. Creatinine is 1.7. GFR is 29. ASSESSMENT AND PLAN: I plan to continue meropenem for a total of 14 days to treat the patient's urinary tract infection with an associated bacteremia. COMORBIDITIES: She is elderly. She recently had surgery, namely a colectomy. She also has diabetes mellitus and gastroesophageal reflux disease. cc: Timothy Guerrero MD
[2016-11-23] MEDS: LANTUS SUBQ SCH (08:33)
[2016-11-23] MEDS: HEPARIN 25,000 UNITS/D5W 25,000 UNIT/250 ML IV.SOLN IV SCH (10:24)
[2016-11-23] MEDS: CLINIMIX E 4.25%-5% SOLUTION 1,000 ML IV SCH (11:22)
--- NOTE | 2016-11-23 14:15 | PROGRESS NOTE ---
DATE: 11/23/2016 She feels much better today. Right leg appears a little less swollen. It is not hurting her. Feels like she is a little stronger. Temp 97.9 degrees, pulse 100, respirations 14, blood pressure 103/64. CVP less than 6 cm.Lungs: Clear in all lung yeh. Cardiovascular: Regular rhythm and rate without murmur or S3. Abdomen: Soft. Skin: Is warm and dry. Urine output 1800 mL. LAB: Reviewed from yesterday. Hematocrit stable at 26, hemoglobin 8.4, white count 9820, platelet count 114,000. Chemistries from this morning sodium 134, potassium 5.0, chloride 98, BUN 58, creatinine 1.5 which is down from 1.7 yesterday. Blood sugars 158, 138, 232. ASSESSMENT AND PLAN: 1. She presented septic with E. coli enterococcal urinary tract infection. The E. coli was originating from urinary tract infection. She is on meropenem, will be day 7. 2. Acute kidney injury which is improved. Vas-Cath was removed. She has had a thrombosis in that right leg. HIT panel has been sent off. Stop the heparin for now. Will remove the Vas- Cath and then continue. 3. General weakness. Begin physical therapy. 4. Diabetes mellitus type 2. Continue to follow her sugars, they are well controlled. Review of her orders: She is on heparin drip. Getting Lantus 25 units subcutaneously q.a.m., meropenem 500 mg q.8, Protonix 40 mg IV q.24 hours. Will consider the possibility of moving her to the floor. Heparin PF4 antibody, PTT or direct platelet antibodies pending at this time. cc: Rodney Buenrostro MD
--- NOTE | 2016-11-23 15:51 | Diag Imaging Result Doc PS360 ---
EXAM: BA SWALLOW W/VIDEO SPEECH THER INDICATION: dysphagia TECHNIQUE: COMPARISON: None. FINDINGS: There is no evidence of aspiration or airway penetration with barium of thin liquid or pudding consistency. On the initial swallowing attempt of thin liquid barium there was a small extrinsic filling defect at the posterior aspect of the upper esophagus at about the C5 level indicating mild cricopharyngeus hypertrophy. However, this is only intermittent. It is not seen on any of the other swallowing attempts. Limited views of the lower esophagus reveal a few tertiary contractions suggesting mild dysmotility. There is prompt passage of barium through the gastroesophageal junction and into the stomach. IMPRESSION: 1.Suggestion of mild intermittent cricopharyngeus hypertrophy. 2.A few mild tertiary contractions of the distal esophagus suggesting mild dysmotility. 3.Please see speech pathology report for full details. Electronically signed by Joshua Ballard 11/23/2016 3:49 PM
[2016-11-23] MEDS: NS 1,000 ML IV SCH (16:00)
--- NOTE | 2016-11-23 21:14 | PROGRESS NOTE ---
DATE: 11/23/2016 PRESENT ILLNESS: The patient is status post colectomy. She became septic due to an E coli and enterococcal urinary tract infection and an associated E coli bacteremia. MEDICATIONS: This is the 7th day of treatment with meropenem. PHYSICAL EXAMINATION: Vital Signs: Temperature is 97.5 degrees, pulse 103, respirations 14, blood pressure 106/64. Generally: The patient is an ill-appearing, elderly female although she does look much better than she did last week. Lungs: Clear to auscultation. Cardiovascular: Regular heart rate. Abdomen: Soft and nontender. The patient's incision is intact. Extremities: The right leg is more swollen than the left. LAB AND X-RAY: A barium swallow today was completed but the results are not yet in the computer. Creatinine of 1.5, a GFR of 34. There is no CBC. ASSESSMENT AND PLAN: I plan to continue meropenem for a total of 14 days to treat the patient's urinary tract infection with associated bacteremia. COMORBIDITIES: Include being elderly, having recent surgery, diabetes mellitus and gastroesophageal reflux disease. cc: Timothy Guerrero MD
--- NOTE | 2016-11-23 21:59 | PROGRESS NOTE ---
DATE: 11/23/2016 SUBJECTIVE: She continues to improve daily. More interactive today. OBJECTIVE: Vital Signs: Blood pressure 116/71, heart rate 103, respirations 17, afebrile, intake 2.7 L. Output 1.2 L. General: No acute distress. Skin: Warm and dry. Conjunctivae are pink. Pupils are equal. Neck: Neck veins are not distended. Heart: Regular with no gallops. Lungs: Have equal breath sounds. No crackles. Abdomen: Soft, nontender. Bowel sounds are present. Extremities: Have 2+ edema in the right leg, none in the left. LABORATORY DATA: Sodium 134, potassium 5, chloride 98, bicarbonate 23, BUN 58, creatinine 1.5. IMPRESSION: 1. Acute kidney injury. Resolving. Her femoral Vas-Cath has been removed. 2. We will remove Donohue catheter. 3. We will sign off today. cc: Arnaud Doan MD
[2016-11-23] MEDS: PROTONIX IV SCH (22:30)
[2016-11-23] MEDS: KLONOPIN PO PRN (22:47)
[2016-11-24] MEDS: MORPHINE IV PRN ×7 (01:07→22:00)
[2016-11-24] MEDS: MERREM 500 MG in NS 50 ML IV SCH ×3 (03:47→19:40)
[2016-11-24 05:10] LABS: BASO% 1.4 % (0.0-0.8); EOS# 0.41 X1000 (0.0-0.7); HEMATOCRIT 25.6 % (37.0-47.0); HEMOGLOBIN 8.3 g/dL (12.0-16.0); IMM GRAN# 1.05 X1000 (0.0-0.04); IMM GRAN% 10.2 % (0.0-0.5); LYMPH# 1.62 X1000 (1.2-3.4); LYMPH% 15.8 % (20.5-51.1); MANUAL DIFF NEEDED? YES; MCH 30.2 PG (27-31); MCHC 32.4 g/dL (33-37); MCV 93.1 FL (81-99); MONO# 1.16 X1000 (0.11-0.59); MONO% 11.3 % (1.7-9.3); MPV 11.9 FL (7.4-10.4); NEUT% 57.3 % (42.2-75.2); PLT 112 X1000 (130-400); RBC 2.75 XMIL (4.2-5.4)
[2016-11-24 06:03] LABS: BANDS 14 % (0-1); EOS 6 % (1-10); LYMPHS 12 % (21-51); MONO 12 % (1-9); POLYCHROM OCCASIONAL
[2016-11-24] MEDS: HUMALOG SUBQ SCH ×4 (06:45→22:05)
[2016-11-24] MEDS: DUONEB (A & A) INH PRN ×2 (07:27→15:44)
[2016-11-24] MEDS: CLINIMIX E 4.25%-5% SOLUTION 1,000 ML IV SCH (08:23)
[2016-11-24] MEDS: LANTUS SUBQ SCH (08:24)
[2016-11-24] MEDS: HEPARIN 25,000 UNITS/D5W 25,000 UNIT/250 ML IV.SOLN IV SCH (08:24)
--- NOTE | 2016-11-24 12:14 | PROGRESS NOTE ---
DATE: 11/24/2016 She is comfortable. Had a good night. No complaints except the right lower side is a little sore. EXAM: Today temp 97.3 degrees, pulse 97, respirations 16, blood pressure 103/58.HEENT: Pupils were equal and round. Lungs: Clear in all lung yeh. Cardiovascular: Regular rate without murmurs or S3. Abdomen: Soft. Skin: Warm and dry. Urine output over 1200 mL. ASSESSMENT AND PLAN: 1. Status post colectomy and septic due to E. coli enterococcal urinary tract infection. I think this should be day 9 of meropenem. Plan to continue treatment a total of 14 days. 2. Acute kidney injury which is resolved. Vas-Cath has been removed. 3. Right leg venous thrombosis on heparin. Seems to be much better. Decreased swelling. HIT panel is pending. Hope to increase activity. Encourage p.o. intake. Make decisions on whether we need to change her over to p.o. anticoagulant. cc: Rodney Buenrostro MD
[2016-11-24] MEDS: NS 1,000 ML IV SCH ×2 (16:38→20:43)
[2016-11-24] MEDS ORDERED: INJECTAFER 750 MG in NS 250 ML IV ONE (17:00)
[2016-11-24] MEDS: MAALOX PLUS LIQUID PO PRN (19:31)
[2016-11-24] MEDS: KLONOPIN PO PRN (19:31)
[2016-11-24] MEDS: PROTONIX IV SCH (20:43)
[2016-11-24] MEDS: SODIUM CHLORIDE 0.9% INJ SCH (20:43)
[2016-11-25] MEDS: MORPHINE IV PRN ×8 (02:03→20:44)
[2016-11-25] MEDS: MERREM 500 MG in NS 50 ML IV SCH ×3 (03:06→20:12)
[2016-11-25] MEDS: CLINIMIX E 4.25%-5% SOLUTION 1,000 ML IV SCH ×2 (03:06→23:11)
[2016-11-25] MEDS: HEPARIN 25,000 UNITS/D5W 25,000 UNIT/250 ML IV.SOLN IV SCH (03:12)
[2016-11-25 04:33] LABS: BASO% 0.6 % (0.0-0.8); EOS# 0.37 X1000 (0.0-0.7); EOS% 4.3 % (0.0-10.0); HEMATOCRIT 21.7 % (37.0-47.0); HEMOGLOBIN 6.9 g/dL (12.0-16.0); IMM GRAN# 0.58 X1000 (0.0-0.04); IMM GRAN% 6.7 % (0.0-0.5); LYMPH# 1.17 X1000 (1.2-3.4); LYMPH% 13.5 % (20.5-51.1); MANUAL DIFF NEEDED? YES; MCH 29.7 PG (27-31); MCHC 31.8 g/dL (33-37); MCV 93.5 FL (81-99); MONO# 1.09 X1000 (0.11-0.59); MONO% 12.6 % (1.7-9.3); MPV 10.9 FL (7.4-10.4); NEUT% 62.3 % (42.2-75.2); PLT 89 X1000 (130-400); RBC 2.32 XMIL (4.2-5.4)
--- NOTE | 2016-11-25 04:38 | PROGRESS NOTE ---
DATE: 11/24/2016 PRESENT ILLNESS: The patient following a colectomy became septic due to an Escherichia coli and enterococcal urinary tract infection, and an associated E. coli bacteremia. MEDICATIONS: The patient has been on meropenem now for 8 days. PHYSICAL EXAMINATION: Vital Signs: Temperature is 97.8 degrees, pulse 99, respirations 20, blood pressure 138/91. General: This is a somewhat ill-appearing, elderly female. She is in no acute distress. Lungs: Clear to auscultation. Cardiovascular: Regular heart rate. Abdomen: Soft and nontender. The patient's incision remains intact. Extremities: The right leg is more swollen than the left. LAB AND X-RAY: There is no new x-ray. The patient's CBC for today showed a white count of 10.25, hemoglobin 8.3, and the platelet count was 112,000. The patient did not have a creatinine today. Yesterday, it was 1.5, with a GFR of 34. ASSESSMENT AND PLAN: The patient has a urinary tract with an associated bacteremia. I plan to continue meropenem. I have requested 2 blood cultures to be drawn tomorrow to make sure that the bacteremia has cleared, and also I have ordered a creatinine for tomorrow. COMORBIDITIES: Being elderly. She recently had surgery. She also is a diabetic, and has gastroesophageal reflux disease. cc: Timothy Guerrero MD
[2016-11-25] MEDS: HUMALOG SUBQ SCH ×4 (06:31→20:21)
[2016-11-25 07:12] LABS: LYMPHS 11 % (21-51); MONO 12 % (1-9)
[2016-11-25] MEDS: FOLIC ACID PO SCH (09:52)
[2016-11-25] MEDS: LANTUS SUBQ SCH (09:53)
[2016-11-25] MEDS: LOVENOX SUBQ SCH ×2 (09:57→20:31)
--- NOTE | 2016-11-25 13:17 | PROGRESS NOTE ---
DATE: 11/25/2016 SUBJECTIVE: She states she feels better. She was reading the newspaper, eating a little bit of breakfast, breathing comfortably. OBJECTIVE: Vital signs: Temp 97.7 degrees, pulse 90, respirations 12, blood pressure 96/54. HEENT: Pupils are equal, round. Lungs: Clear in all lung yeh. Cardiovascular: Regular rhythm and rate without murmur or S3. Abdomen: Soft. Skin: Warm and dry. Intake and output: Urine output 3 L. LAB: Blood sugar 221, 132, 180. White count 8,650, hematocrit 21, platelet count 89,000. Chemistries: Blood sugar 177, 132, 171. ASSESSMENT AND PLAN: 1. She presented with sepsis due to Escherichia coli, enterococcus urinary tract infection associated with Escherichia coli bacteremia. This is day 9 of meropenem. 2. Deep vein thrombosis right leg. She is on heparin. I think we can switch her to Lovenox and probably will need to be on an oral anticoagulant for a couple months. Follow up with noninvasive. Her leg is better, less swollen. 3. Acute kidney injury, acute tubular necrosis, which is improved. 4. Diabetes mellitus type 2. Sugar is under good control. 5. Weakness. Lets get her up out of bed, sit her up in a chair, and see if we can help her with her strength. cc: Rodney Buenrostro MD
[2016-11-25 14:16] LABS: HEMATOCRIT 22.5 % (37.0-47.0); HEMOGLOBIN 7.1 g/dL (12.0-16.0)
--- NOTE | 2016-11-25 14:55 | CONSULTATION ---
DATE OF CONSULTATION: 11/22/2016 ATTENDING PHYSICIAN: Dr. Vishal Santillan. REQUESTING PHYSICIAN: Dr. Santillan. We appreciate this consult. CHIEF COMPLAINT: Thrombocytopenia. HISTORY OF PRESENT ILLNESS: Ms Hankins is very pleasant 76-year-old female with a history of diabetes mellitus type 2 with recent exploratory laparotomy and total abdominal colectomy with ileoproctostomy by Dr. Schilling on 11/01/2016. The patient was discharged home to [facility] and the patient returned to [facility] with lethargy and confusion. Upon presentation the patient was found to have a significantly elevated BUN and creatinine as well as hypotension and leukocytosis. The patient was admitted for sepsis and begun on broad-spectrum antibiotics. Additionally she was found to be thrombocytopenic for which we are consulted. Platelet count today is 114. PAST MEDICAL HISTORY: 1. Recent total colectomy with ileoproctostomy. 2. Diabetes mellitus type 2. 3. Gastroesophageal reflux disease. 4. Osteoarthritis. PAST SURGICAL HISTORY: 1. Colectomy. 2. Cholecystectomy. 3. Hysterectomy. 4. Partial resection of the stomach. 5. Bilateral rotator cuff repair. 6. Left foot surgery. 7. Cataract extraction. 8. Shoulder arthroscopy. SOCIAL HISTORY: The patient has a history of smoking cigarettes. She does not use alcohol or illicit drugs. FAMILY HISTORY: Negative for any oncologic or hematologic problems. MEDICATIONS ON ADMISSION: 1. Klonopin. 2. Baclofen. 3. Neurontin. 4. Glucophage. 5. Prilosec. 6. MiraLAX. 7. Ultram. ALLERGIES: Are to sulfa. REVIEW OF SYSTEMS: A 14 point review of systems was obtained and is negative except as mentioned in HPI. PHYSICAL EXAM: Ms. Hankins is a very pleasant 76-year-old female lying supine in bed in no immediate distress.Vital Signs: Temperature 97.0 degrees, blood pressure 113/62, heart rate 97, respirations are 14, O2 saturation is 100% on 2 L nasal cannula O2. HEENT: Normocephalic, atraumatic. Mucous membranes are pale and somewhat dry. Sclerae is anicteric. Extraocular movements intact. Neck: Supple. Lungs: Clear to auscultation bilaterally. Chest expansion is equal bilaterally. CV: S1, S2 is heard without murmur, rub or gallop. Abdomen: Soft, nontender, nondistended. Bowel sounds are positive in all quadrants. No rebound or guarding noted. Extremities: Without clubbing or cyanosis. She does have right lower extremity 1+ edema. Dermatologic: No rashes, bruises or lesions. Neurologic: The patient is awake, she is alert and oriented x2. She has no focal motor deficits observed. LABORATORY DATA: Hemoglobin 8.4, hematocrit 26.9, white blood cell count 9.92, platelets 114,000. Sodium 136, potassium 4.7, chloride 98, CO2 is 24, BUN 57, creatinine 1.7, glucose 232. Blood cultures reveal no growth at 5 days. ASSESSMENT AND PLAN: 1. Thrombocytopenia of questionable etiology. The patient is currently on a heparin drip. At this time we would recommend changing the patient to Arixtra secondary to thrombocytopenia. 2. Septic shock. Currently on meropenem. 3. Acute kidney injury stable at this time. Creatinine is 1.7. 4. Metabolic encephalopathy improving. Workup in progress. 5. Macrocytic anemia. Hemoglobin is 8.4 and stable. Will follow CBC and transfuse as necessary. 6. Diabetes mellitus stable with a glucose of 232 on medications. 7. We will follow along with you and make further recommendations pending outcomes. The above reflects the history, exam, assessment and plan of Dr. Ernst. Dictated by STEVE Menard for Vitor Ernst MD cc: STEVE Menard MD
[2016-11-25] MEDS: NS 1,000 ML IV SCH (15:39)
--- NOTE | 2016-11-25 17:39 | PROGRESS NOTE ---
DATE: 11/25/2016 PRESENT ILLNESS: The patient has an E. coli and enterococcal urinary tract infection with an associated E. coli bacteremia. All of this occurred following a colectomy. MEDICATIONS: Patient is on meropenem now for the 9th day. LAB AND X-RAY: Creatinine is 0.9. GFR is greater than 60. Repeat blood cultures are pending. Blood cultures are pending. The patient's CBC shows a white count of 8,650, hemoglobin 7.1, and platelet count 89,000. PHYSICAL EXAMINATION: Vital Signs: Temperature is 97.7 degrees, pulse 98, respirations 16, blood pressure 112/63. General: This is an ill-appearing, elderly female. She is in no acute distress. Lungs: Clear to auscultation. Cardiovascular: Regular heart rate. Abdomen: Soft and nontender. The patient's midline incision remains intact. Extremities: The right leg remains more swollen than the left. ASSESSMENT AND PLAN: The patient has a urinary tract infection with associated bacteremia which seems to be responding to meropenem. Therefore, I will continue meropenem pending the results of 2 new blood cultures that were drawn this morning. COMORBIDITIES: She is elderly. She recently had surgery. She is also a diabetic and she has gastroesophageal reflux disease. cc: Timothy Guerrero MD
[2016-11-25] MEDS: COUMADIN PO SCH (20:12)
[2016-11-25] MEDS: SODIUM CHLORIDE 0.9% INJ SCH (20:12)
[2016-11-25] MEDS: PROTONIX IV SCH (20:32)
[2016-11-25] MEDS: KLONOPIN PO PRN (20:43)
--- NOTE | 2016-11-25 21:30 | Extremity Venous Study ---
PROCEDURE NAME: Venous U/S Right Leg - 11/21/2016 RIGHT LOWER EXTREMITY VENOUS DUPLEX STUDY: REFERRING PHYSICIAN: Babak Hackett MD READING PHYSICIAN: Madhu Henriquez MD CONSULTING SOLUTION MANAGER: Valentín. INDICATION: Right leg swelling. FINDINGS: The images are somewhat limited in the groin due to the presence of a vas cath; however, acute thrombus is seen in the distal right common femoral vein as well as the deep femoral, superficial, popliteal, posterior tibial and peroneal veins. The right greater saphenous vein has been stripped. The above-mentioned deep veins appear to be thrombosed. There is no flow present. They are noncompressible. INTERPRETATION: Extensive acute deep vein thrombosis throughout the right lower extremity and the deep system as described above. cc: Madhu Henriquez MD
[2016-11-25 22:15] LABS: HEMATOCRIT 31.2 % (37.0-47.0); HEMOGLOBIN 10.2 g/dL (12.0-16.0)
[2016-11-25] MEDS: DIFLUCAN PO SCH (22:26)
[2016-11-26] MEDS: MORPHINE IV PRN ×7 (01:04→21:37)
[2016-11-26] MEDS: MERREM 500 MG in NS 50 ML IV SCH ×3 (03:34→20:31)
[2016-11-26 04:19] LABS: BASO% 0.7 % (0.0-0.8); EOS# 0.32 X1000 (0.0-0.7); EOS% 4.2 % (0.0-10.0); HEMATOCRIT 31.8 % (37.0-47.0); HEMOGLOBIN 10.7 g/dL (12.0-16.0); IMM GRAN# 0.36 X1000 (0.0-0.04); IMM GRAN% 4.8 % (0.0-0.5); LYMPH# 0.86 X1000 (1.2-3.4); LYMPH% 11.4 % (20.5-51.1); MANUAL DIFF NEEDED? YES; MCH 29.9 PG (27-31); MCHC 33.6 g/dL (33-37); MCV 88.8 FL (81-99); MONO# 0.84 X1000 (0.11-0.59); MONO% 11.1 % (1.7-9.3); MPV 11.4 FL (7.4-10.4); NEUT% 67.8 % (42.2-75.2); PLT 80 X1000 (130-400); RBC 3.58 XMIL (4.2-5.4)
[2016-11-26 04:27] LABS: INR 1.02; PROTIME 10.7 Seconds (9.2-11.7)
[2016-11-26 04:31] LABS: BANDS 16 % (0-1); LYMPHS 14 % (21-51); MONO 6 % (1-9)
[2016-11-26] MEDS: HUMALOG SUBQ SCH ×4 (06:32→20:29)
[2016-11-26] MEDS: LANTUS SUBQ SCH (08:29)
[2016-11-26] MEDS: DIFLUCAN PO SCH (08:29)
[2016-11-26] MEDS: FOLIC ACID PO SCH (08:29)
[2016-11-26] MEDS: LOVENOX SUBQ SCH ×3 (08:30→21:41)
--- NOTE | 2016-11-26 11:17 | PROGRESS NOTE ---
DATE: 11/26/2016 Ms. Hankins is doing better. Her right leg swelling has gone down dramatically. It is soft. No palpable cords. Breathing comfortably. Remains afebrile. Temp 97.6 degrees, pulse 98, respirations 26, blood pressure 123/66.HEENT: Pupils are equal. CVP less than 6 cm. Lungs: Clear in all lung yeh. Cardiovascular: Regular rhythm and rate without murmur or S3. Abdomen: Soft. Skin: Is warm and dry. Urine output is 3300. Good urine output. LAB: White count 7540, hematocrit 31, platelet count 80,000. Blood sugar 166, 109, 141. ASSESSMENT AND PLAN: 1. Patient presented with E. coli enterococcus urinary tract infection associated with E. coli bacteremia and is doing very well. Patient is on meropenem for the 10th day. 2. Acute tubular necrosis. Acute renal injury. Resolved. Good urine output. 3. General weakness, deconditioning. Will continue physical therapy. Try and get her up. Her aim is to try and go home. She needs to be a lot stronger. 4. Diabetes mellitus type 2. Sugars under good control. 5. Right leg DVT. Start her on Coumadin 5 mg a day. We will follow pro times. I suspect she will need anticoagulant for a couple months. Plan is to redo her noninvasive venous study on that leg in a couple months ago to see if she can stop her blood thinner. So she is on warfarin 5 mg a day. Protonix 40 mg a day. Meropenem 500 mg q.8 hours. Lantus 25 units q.a.m. Folic acid 1 mg daily. Diflucan 150 mg daily. Lovenox 70 mg subcutaneous q.12 hours. Klonopin 0.5 mg at bedtime p.r.n. I think we will stop her Clinimix. She is starting to eat a little better. cc: Rodney Buenrostro MD
[2016-11-26] MEDS: NS 1,000 ML IV SCH (15:38)
[2016-11-26] MEDS: CARAFATE LIQUID PO SCH ×2 (17:12→20:27)
--- NOTE | 2016-11-26 18:52 | PROGRESS NOTE ---
DATE: 11/26/2016 PRESENT ILLNESS: The patient has an E coli and enterococcal urinary tract infection with an associated E coli bacteremia. These infections occurred after the patient had a colectomy. MEDICATIONS: The patient is on day 10 now of meropenem. LAB AND X-RAY: The patient's CBC today shows a white count of 7540, hemoglobin 10.7, and platelet count of 80,000. Blood cultures are pending. There was no new x-ray today. PHYSICAL EXAMINATION: Vital Signs: Temperature is 97.6 degrees, pulse 96, respirations 23, blood pressure 131/74. General: This is an ill-appearing, elderly female but she is in no acute distress. She does say she is having some pain in her right side of her abdomen. She said she thinks it is due to gas. Lungs: Clear to auscultation. Cardiovascular: Heart rate is regular. Abdomen: Soft and nontender. ASSESSMENT AND PLAN: Patient has urinary tract infection with an associated bacteremia. My plan is to continue meropenem and repeat the blood cultures to make sure that the blood is sterile at this time. COMORBIDITIES: Include she is elderly. She had recently had major surgery. She also is a diabetic who has gastroesophageal reflux disease. cc: Timothy Guerrero MD
[2016-11-26] MEDS: COUMADIN PO SCH (20:28)
[2016-11-26] MEDS: PROTONIX IV SCH ×2 (20:28→21:41)
[2016-11-26] MEDS: SODIUM CHLORIDE 0.9% INJ SCH (20:28)
[2016-11-26] MEDS: KLONOPIN PO PRN (20:28)
[2016-11-27] MEDS: MORPHINE IV PRN ×10 (00:21→20:32)
[2016-11-27] MEDS: CARAFATE LIQUID PO SCH ×4 (02:39→20:32)
[2016-11-27] MEDS: MERREM 500 MG in NS 50 ML IV SCH ×3 (05:00→20:32)
[2016-11-27 05:37] LABS: INR 1.22
[2016-11-27 05:47] LABS: AGAP 13; BUN 24 mg/dL (8-22); CALCIUM 7.9 mg/dL (8.8-10.2); CHLORIDE 102 mmol/L (98-107); COSMO 284; POTASSIUM 3.7 mmol/L (3.5-5.1); SODIUM 141 mmol/L (136-145); TCO2 26 mmol/L (25-35)
[2016-11-27 06:00] LABS: MAGNESIUM 0.9 mg/dL (1.5-2.7)
[2016-11-27] MEDS ORDERED: MAGNESIUM SULFATE 1 GM/D5W 1 GM/100 ML IVPB IV ONE (06:29)
[2016-11-27] MEDS: HUMALOG SUBQ SCH ×4 (07:07→20:33)
[2016-11-27] MEDS: DUONEB (A & A) INH PRN ×3 (07:56→15:46)
[2016-11-27] MEDS: FOLIC ACID PO SCH (09:05)
[2016-11-27] MEDS: LOVENOX SUBQ SCH ×2 (09:05→20:32)
[2016-11-27] MEDS: DIFLUCAN PO SCH (09:06)
[2016-11-27] MEDS: LANTUS SUBQ SCH (10:30)
--- NOTE | 2016-11-27 10:51 | Diag Imaging Result Doc PS360 ---
HIP W/PELVIS BILAT 2 VIEWS - 11/27/2016 INDICATION: R hip pain TECHNIQUE: Three views COMPARISON: CT from 11/16/2016 FINDINGS: There is mild bilateral hip osteoarthritis. No fracture or subluxation. Soft tissues are clear. IMPRESSION: No acute disease or change from prior. Electronically signed by Andrea Bird 11/27/2016 10:49 AM
[2016-11-27] MEDS: ULTRAM PO PRN ×3 (11:29→21:17)
--- NOTE | 2016-11-27 12:13 | PROGRESS NOTE ---
DATE: 11/27/2016 SUBJECTIVE: She is complaining of right hip pain. It is really posterior hip and we need to start getting her out of bed. She had requested an x-ray, so I will x-ray the right hip and pelvis today. OBJECTIVE: Vital Signs: Temperature 99.2 degrees, pulse 87, respirations 20, blood pressure 152/65. Neck: CVP less than 6 cm. Lungs: Clear in all lung yeh. Cardiovascular: Regular rhythm and rate, without murmur or S3. Abdomen: Soft. Skin: Warm and dry. URINE OUTPUT: Almost 3 L. LABORATORY: Hematocrit stable at 31. Platelet count was 80,000. ASSESSMENT AND PLAN: 1. Escherichia coli enterococcal urinary tract infection with associated Escherichia coli bacteremia. This is day 11 of meropenem. Continue meropenem until repeat blood cultures to make sure sterile. 2. Acute tubular necrosis, acute renal insufficiency or acute kidney injury, which has resolved. Did require dialysis for a time. 3. Right leg deep vein deep vein thrombosis, I think related to the Vas-Cath. She was started on oral anticoagulant, Coumadin, and her INR is 1.22, starting to come up. 4. Right hip pain. I will get an x-ray of the hip. I think it would benefit her to get up and sit in a chair, and try and get her walking again. 5. Diabetes mellitus, type 2. Sugar is under good control. cc: Rodney Buenrostro MD
--- NOTE | 2016-11-27 15:59 | CONSULTATION ---
DATE OF CONSULTATION: 11/26/2016 REFERRING PHYSICIAN: Rodney Buenrostro M.D. PRIMARY MACHINE SHOP HELPER: Pedro Curtis M.D. PRIMARY CARE PROVIDER: Froy Gant M.D. INDICATION FOR CONSULTATION: 1. Abdominal pain. 2. Anemia. 3. Heme-positive stools. HISTORY OF PRESENT ILLNESS: The patient is a 76-year-old white female who recently underwent an exploratory laparotomy with total abdominal colectomy with ileoanal anastomosis on 11/01/2016. She was discharged to [facility] [place] 5 days postoperatively. According to her , she did well initially. However, she became confused and they were unable to arouse her on 11/16/2016. She was transported back to [facility] for evaluation. She was found to have increased BUN and creatinine, hypotension, leukocytosis, chemical evidence of acute kidney injury, severe metabolic acidosis with a lactate of 22. It was determined that she was septic. She was placed on sepsis protocol and required Levophed for hemodynamic support. She subsequently improved. However, she complained of dysphagia and was not tolerating her diet. She had a modified barium swallow on 11/23/2016 that was remarkable for pharyngeal esophageal dysphagia and poor esophageal motility. She was placed on a mechanical soft diet with interval improvement. Over the 3-4 days prior to consultation, she was noted to have a gradual decline in her hemoglobin with no evidence of active GI bleeding. On 11/25, her hemoglobin dropped to 6.9, with hematocrit of 21.7. Her platelet count also dropped to 89,000. She was found to be guaiac positive on Hemoccult testing. Her only clinical complaint is epigastric pain and nausea. She notes that she had ulcer surgery with part of her stomach removed several years ago at [place]. She was unable to recall the year of the surgery or the specific details. She reports that she has been on an acid blocking medicine, namely omeprazole, since her surgery. She had done well, according to her , until this admission. We are asked to participate in her care and evaluate her abdominal pain, anemia and guaiac-positive stools. It should be noted that the patient was recently found to have extensive right lower extremity DVT with multiple clot and is currently receiving Coumadin and Lovenox. PAST MEDICAL HISTORY: 1. Diabetes mellitus. 2. Diverticulosis. 3. Episodes of diverticulitis in the past. 4. GERD. 5. Peptic ulcer disease. 6. History of colon polyps. 7. IBS. 8. Chronic constipation. 9. Nausea, gastroparesis. According to her clinic records, the patient has spent more than 5 years on Reglan. 10. Hemorrhoids. 11. Perianal condylomata acuminata. PAST SURGICAL HISTORY: 1. Total abdominal colectomy due to recurrent diverticulitis with ileoanal anastomosis 11/01/2016. 2. Colonoscopy for personal history of colon polyps and family history of colon cancer. 3. EGD last 10/28/2011. 4. Cholecystectomy. 5. Hysterectomy. 6. Remote sigmoidoscopy. 7. Partial resection of the stomach. 8. Bilateral rotator cuff tear. 9. Left foot surgery. 10. Cataract removal. 11. Shoulder arthroscopy. SOCIAL HISTORY: The patient is a former smoker. She denies tobacco or recreational drug use. She is and her is at bedside. According to her , she smoked 1 pack per day of cigarettes for years. She has 4 adult children. FAMILY HISTORY: Is remarkable in that 2 of her sisters had colon cancer in her early 50s. There is also a history of diabetes mellitus and arthritis. REVIEW OF SYSTEMS: Positive for nausea, epigastric pain, and occasional constipation. MEDICATION ALLERGIES: Sulfa. HOME MEDICATIONS: 1. Tramadol. 2. MiraLAX. 3. Prilosec. 4. Glucophage. 5. Gabapentin. 6. Diclofenac. 7. Klonopin. PHYSICAL EXAMINATION: General Appearance: An older lady who is in no acute distress. Vital Signs: Her blood pressure is 112/63, pulse 98, respiration 16, temperature of 97.7 degrees. HEENT: Notable for anicteric sclerae. Her conjunctivae are pale. Her oropharyngeal mucosal membranes slightly dry. Neck: Her neck is supple. Chest: Her chest is clear to auscultation with normal expiratory effort. Cardiovascular: Reveals regular rate and rhythm with no murmurs, gallops, or rubs. Abdomen: Her abdomen reveals normoactive bowel sounds. The abdomen is soft with moderate epigastric tenderness and mild right upper quadrant, left upper quadrant tenderness. There is a healed midline incision. There is no rebound or guarding. Extremities: Bilaterally are remarkable for the absence of cyanosis and clubbing. Her right lower extremity is tender to the touch. She is reluctant to let me palpate or press on her right lower extremity given her recent DVT. OBJECTIVE DATA: Her hemoglobin of 10.7, with hematocrit of 31.8, and a white count of 7.54. She has 80,000 platelets. Her PT is 10.7, with an INR of 1.02, and a PTT is 35.7. Her glucose is 89. IMPRESSION: 1. Anemia. 2. Heme-positive stools. 3. Epigastric pain. 4. History of peptic ulcer disease. 5. Nausea. 6. Family history of colon cancer. RECOMMENDATION: 1. The patient has a history of peptic ulcer disease. It was previously thought by Dr. Curtis and Dr. Wilcox to possibly have diabetic gastroparesis. She is currently receiving IV Protonix 40 mg IV q.24 hours. I would continue this therapy. 2. Because of her history of peptic ulcer disease, I recommend Carafate 1 g p.o. 4 times a day. 3. Ideally, she would benefit from endoscopic intervention, However, she is currently receiving Lovenox and Coumadin due to her newly diagnosed deep venous thrombosis which according to the reports is quite extensive. Therefore, I recommend empiric treatment until such time that she is able to have endoscopic therapy by Dr. Pedro Curtis. 4. She notes some constipation. I will defer it to Surgery and to the primary team regarding management of her constipation. She may benefit from MiraLAX. 5. Continue her diet as tolerated. 6. Additional recommendations to follow based on her clinical course. 7. Dr. Curtis will return next week to assume care of the patient. We are happy to follow along until his return. cc: MD Rodney Agosto MD Khurshid Yousuf, MD Rodney W. Harney, MD MTDD
[2016-11-27] MEDS: NS 1,000 ML IV SCH (16:05)
[2016-11-27] MEDS: SODIUM CHLORIDE 0.9% INJ SCH (20:32)
[2016-11-27] MEDS: PROTONIX IV SCH (20:32)
[2016-11-27] MEDS: COUMADIN PO SCH (20:32)
[2016-11-27] MEDS: KLONOPIN PO PRN (20:51)
[2016-11-28] MEDS: MORPHINE IV PRN ×8 (01:44→19:59)
[2016-11-28] MEDS: CARAFATE LIQUID PO SCH ×4 (02:49→21:00)
[2016-11-28] MEDS: MERREM 500 MG in NS 50 ML IV SCH ×3 (03:38→21:00)
[2016-11-28] MEDS: HUMALOG SUBQ SCH ×4 (06:03→20:00)
[2016-11-28 06:08] LABS: INR 2.33; PROTIME 25.8 Seconds (9.2-11.7)
[2016-11-28] MEDS: ULTRAM PO PRN ×3 (06:30→20:59)
[2016-11-28] MEDS: DUONEB (A & A) INH PRN ×3 (07:33→19:21)
[2016-11-28] MEDS: LOVENOX SUBQ SCH ×2 (09:22→21:00)
[2016-11-28] MEDS: DIFLUCAN PO SCH (09:23)
[2016-11-28] MEDS: FOLIC ACID PO SCH (09:24)
[2016-11-28] MEDS: LANTUS SUBQ SCH (09:25)
--- NOTE | 2016-11-28 10:37 | PROGRESS NOTE ---
DATE: 11/28/2016 SUBJECTIVE: She still complains of pain that is terrible in her hip, posterior hip, and wants something stronger for her pain medicine. She is breathing comfortably. She is eating a little bit better. I told her that I do not want to go up on her pain medicine. I want her to try and get her out of the bed. She has been in the bed close to 4 weeks now. I suspect that is a big portion of why she hurts in her lower hip and lower back. PHYSICAL EXAMINATION: Vital Signs: Temperature 98.4 degrees, pulse 100, respirations 16, blood pressure 156/79. Lungs: Clear in all lung yeh. Cardiovascular Examination: Regular rhythm and rate without murmur or S3. Abdomen: Soft. Skin: Is warm and dry. Is and Os: Urine output is 2300. LAB: No new labs today. Blood sugars look normal. We got an x-ray yesterday of her hip and no acute fracture or subluxation. Dr. Cheng was consulted for abdominal pain, anemia, heme-positive stools, epigastric pain, peptic ulcer disease. The patient has a history of peptic ulcer disease. ASSESSMENT AND PLAN: 1. The patient has a history of peptic ulcer disease, previously thought by Dr. Curtis and Dr. Wilcox possibly diabetic gastroparesis. Currently receiving intravenous Protonix and Dr. Cheng started her on Carafate. 2. She has had a right leg deep venous thrombosis, probably from the Vas-Cath. She is on Lovenox with bridge to Coumadin. Probably need anticoagulant for a couple of months. 3. Acute renal failure, which is resolved. 4. She presented with sepsis and she presented with infection. She had E. coli and enterococcus urinary tract infection. This appears to have resolved. 5. General weakness and deconditioning. We need to get her out of the bed. 6. Complains of right posterior hip pain, I think which will be helped most by physical therapy and trying to get her up and exercise her. 7. Review of her orders. I do not see any change at this point. Note that her prothrombin time was 25 so I am going to decrease the Coumadin down to 2.5 mg at bedtime and continue to watch. cc: Rodney Buenrostro MD
[2016-11-28] MEDS: NS 1,000 ML IV SCH (18:50)
[2016-11-28] MEDS: KLONOPIN PO PRN (20:59)
[2016-11-28] MEDS: COUMADIN PO SCH (21:00)
[2016-11-28] MEDS: PROTONIX IV SCH (21:01)
[2016-11-29] MEDS: MORPHINE IV PRN ×8 (00:44→23:06)
[2016-11-29] MEDS: CARAFATE LIQUID PO SCH ×4 (02:32→20:55)
[2016-11-29] MEDS: ULTRAM PO PRN ×3 (04:49→21:05)
[2016-11-29] MEDS: MERREM 500 MG in NS 50 ML IV SCH ×2 (05:24→12:20)
[2016-11-29] MEDS ORDERED: INSULIN PEN NEEDLES ONE (06:15)
[2016-11-29 06:39] LABS: INR 6.07; PROTIME 71.5 Seconds (9.2-11.7)
[2016-11-29] MEDS: HUMALOG SUBQ SCH ×2 (06:49→12:32)
[2016-11-29] MEDS: LANTUS SUBQ SCH (08:56)
[2016-11-29] MEDS: FOLIC ACID PO SCH (08:56)
[2016-11-29] MEDS ORDERED: MILK OF MAGNESIA PO ONE (09:14)
--- NOTE | 2016-11-29 10:42 | PROGRESS NOTE ---
DATE: 11/16/2016 The patient is complaining of pain in her back still and she is fussing that she has not had a bowel movement. She does not like using the bedpan. PHYSICAL EXAMINATION: At temp 98.8 degrees, pulse 95, respirations 18, blood pressure of 149/100.Lungs: Clear in all lung yeh. Cardiovascular exam is regular rhythm and rate without murmur or S3. Abdomen: Soft. Skin is warm and dry. Blood sugars are 169-189. ASSESSMENT AND PLAN: 1. History of peptic ulcer disease. Previously seen by Dr. Newell and Dr. Tao, and is recently evaluated by Dr. Cheng as well. Possible diabetic gastroparesis. She is doing better as far as her eating. She is on Protonix and Carafate. 2. Right leg deep venous thrombosis. ProTime is high. I had decreased her Coumadin already yesterday, but will hold the Coumadin and stop her Lovenox for now. I want her to get up. I want her to get out of bed. I think this will help her lower back. 3. Acute kidney injury, resolved and improved. 4. She presented with an E. coli and enterococcus urinary tract infection and that has been treated. 5. General weakness deconditioning. Continue to try and get her up out of bed. Complaining of constipation. We will try some MiraLAX and a Dulcolax suppository today and see if that will help. She is still on her meropenem. She is getting Ultram p.r.n. pain. We are holding the Coumadin. We will stop the Lovenox and give her Milk of Magnesia and Dulcolax suppository. cc: Rodney Buenrostro MD
--- NOTE | 2016-11-29 13:20 | PROGRESS NOTE ---
DATE: 11/29/2016 SUBJECTIVE: Patient states her right leg and back are hurting. She has not had a bowel movement in several days. OBJECTIVE: General: Patient is sitting in a chair in no acute distress. Respiratory: Essentially clear. Cardiovascular: Regular rate and rhythm. Abdomen: Soft. She has a healing incision noted to the abdomen. Bowel sounds present. Vital Signs: Temperature 97.6 degrees, pulse 99, respirations 18, blood pressure 126/55. DIAGNOSTIC RESULTS: Laboratory/hematology: White count 7.54, hemoglobin 10.7, hematocrit 31.8, MCV 88.8. Chemistry: Sodium 141, potassium 3.7, chloride 102, CO2 26, BUN 24, creatinine 0.7, glucose 71. Prothrombin time 71.5, INR 6.07. ASSESSMENT: 1. Recent colectomy. 2. Right leg deep venous thrombosis. Her prothrombin time is high. Her Coumadin and Lovenox has been held today. 3. Escherichia coli enterococcus urinary tract infection. Treated. 4. Anemia improved. She did have Hemoccult-positive stool. I will continue to follow. 5. Constipation. She has been given a dose of milk of magnesia today and Dulcolax ordered daily. PLAN: We will follow on results. Further plans will be made as needed. We will discuss this case with Dr. Curtis. Dictated by STEVE Solitario for Pedro Curtis MD cc: STEVE Mitchell MD
--- NOTE | 2016-11-29 16:48 | PROGRESS NOTE ---
DATE: 11/29/2016 PRESENT ILLNESS: The patient has an E. coli and enterococcal urinary tract infection with an associated E. coli bacteremia. The patient previously had a colectomy. MEDICATIONS: This is day 14 of treatment with meropenem. LAB AND X-RAY: There was no CBC or BMP done today. Repeat blood cultures are sterile. No new x- ray was done today. PHYSICAL EXAMINATION: Vital Signs: Temperature is 98.1 degrees, pulse 98, respirations 20, blood pressure 126/64. General: This is an ill-appearing, elderly female. She says that her abdomen continues to hurt her. Lungs: Clear to auscultation. Cardiovascular: Heart rate is regular. Abdomen: Soft and nontender. The patient's midline incision is healing well. There is no erythema and no drainage coming from it. ASSESSMENT AND PLAN: My plan now is to stop the patient's antibiotics because it has been 14 days and also repeat her CBC and BMP for tomorrow. COMORBIDITIES: She is elderly. She recently had a major surgery. She also is a diabetic and she also has gastroesophageal reflux disease. cc: Timothy Guerrero MD
[2016-11-29] MEDS: SODIUM CHLORIDE 0.9% INJ SCH (20:55)
[2016-11-29] MEDS: NS 1,000 ML IV SCH (20:55)
[2016-11-29] MEDS: PROTONIX IV SCH (20:56)
[2016-11-29] MEDS: KLONOPIN PO PRN (20:56)
[2016-11-30] MEDS: MORPHINE IV PRN ×6 (01:09→21:38)
[2016-11-30] MEDS: CARAFATE LIQUID PO SCH ×4 (04:25→21:38)
[2016-11-30] MEDS: DUONEB (A & A) INH PRN (07:42)
[2016-11-30] MEDS: HUMALOG SUBQ SCH ×3 (07:46→16:30)
[2016-11-30] MEDS: DULCOLAX PR SCH ×2 (07:52→09:49)
[2016-11-30] MEDS: ULTRAM PO PRN (07:52)
[2016-11-30] MEDS: FOLIC ACID PO SCH ×2 (07:52→09:48)
[2016-11-30] MEDS: LANTUS SUBQ SCH (09:48)
[2016-11-30 09:53] LABS: BASO% 0.5 % (0.0-0.8); EOS# 0.05 X1000 (0.0-0.7); EOS% 0.4 % (0.0-10.0); HEMATOCRIT 18.2 % (37.0-47.0); HEMOGLOBIN 5.7 g/dL (12.0-16.0); LYMPH# 1.17 X1000 (1.2-3.4); LYMPH% 9.2 % (20.5-51.1); MCH 30.2 PG (27-31); MCHC 31.3 g/dL (33-37); MCV 96.3 FL (81-99); MONO# 1.41 X1000 (0.11-0.59); MONO% 11.1 % (1.7-9.3); MPV 11.8 FL (7.4-10.4); NEUT% 78.8 % (42.2-75.2); PLT 191 X1000 (130-400); PROTIME 97.5 Seconds (9.2-11.7); RBC 1.89 XMIL (4.2-5.4)
[2016-11-30 09:54] LABS: INR 8.12
[2016-11-30 10:01] LABS: MANUAL DIFF NEEDED? NO
[2016-11-30] MEDS ORDERED: VITAMIN K 10 MG in NS 50 ML IV ONE (10:03)
[2016-11-30] MEDS ORDERED: ZOFRAN IV PRN (10:03)
[2016-11-30 10:43] LABS: CALCIUM 7.9 mg/dL (8.8-10.2)
[2016-11-30 11:47] LABS: POTASSIUM 3.8 mmol/L (3.5-5.1)
--- NOTE | 2016-11-30 14:16 | PROGRESS NOTE ---
DATE: 11/30/2016 SUBJECTIVE: This patient has generalized weakness, she is still complaining of mild back pain, she is still having constipation. Hemoglobin today is 5.7 with an INR of 8.1. I will give her treatment with vitamin K, and I will transfuse this patient with 2 units. Also, I will ask for occult blood in the stool. OBJECTIVE: Vital Signs: Temperature 98.4 degrees, pulse 98, respiratory rate 18, blood pressure 116/51, O2 saturation 95% on room air. HEENT: Head normocephalic. No trauma. PERRLA. Neck: Supple. No JVD. No masses. Central trachea. Chest: Clear to auscultation. No wheezing. No rales. Abdomen: Soft, nontender, nondistended. No hepatosplenomegaly. Extremities: No edema. No clubbing. No cyanosis. She is complaining of right lower extremity discomfort. Neurological: This patient is alert and oriented x3. No focal deficits. LABORATORY: WBC 12.6, hemoglobin is 5.7, hematocrit 18.2, platelet 191,000. PT 97.5, INR 8.1. ASSESSMENT AND PLAN: 1. Septic shock, resolved. 2. Metabolic encephalopathy, resolved. 3. History of peptic ulcer disease, previously seen by Dr. Curtis and Dr. Tao and was recently evaluated by Dr. Cheng as well. 4. Possible diabetic gastroparesis. She is doing better as far as feeding, but today she has a hemoglobin of 5.7. I will transfuse this patient. I will ask for occult blood in the stool and I will give her a dose of vitamin K since she is getting warfarin. 5. Right leg deep venous thrombosis. As above. 6. Acute kidney injury. Resolved. 7. She presented with Escherichia coli and enterococcus urinary tract infection and that has been treated. 8. Physical deconditioning. this patient upon discharge wants to go home. She does not want to go to a rehab center. I told her to reconsider this option because she is severely weak, and the only person that can take care of her at home is her that is an elderly person and also her son on and off and mostly during the night. 9. Constipation. Continue with the same management. cc: Vishal Carter MD
[2016-11-30] MEDS: NS 1,000 ML IV SCH (17:28)
--- NOTE | 2016-11-30 18:19 | PROGRESS NOTE ---
DATE: 11/30/2016 PRESENT ILLNESS: The patient has had treatment of her urinary tract infection and bacteremia. All of her antibiotics have been discontinued. The patient complains a right-sided abdominal pain. Prior CT scan of the abdomen did not show any pathology. MEDICATIONS: She is not on any antibiotics. LABORATORY AND X-RAY: CBC shows a white count is increased to 12,660, hemoglobin is down to 5.7 and platelet count is 191,000. Creatinine is 2. GFR is 24. Repeat blood cultures are negative. The patient's Doppler study showed a right deep venous thrombosis. Today the leg failure is a little less swollen. PHYSICAL EXAMINATION: Vital Signs: Temperature is 97.4 degrees, pulse 57, respirations 14, blood pressure 110/60. General: This is a chronically ill-appearing, elderly female. She is in no acute distress. She does complain of right-sided abdominal pain. CARDIOVASCULAR: Regular heart rate. Abdomen: Soft and nontender. Lungs: Clear to auscultation. Neurologic: Patient is awake. She can move her left leg, but the right leg she can barely move. Extremities: The right leg is less swollen than it was a couple days ago. IMPRESSION AND PLAN: 1. The patient does have leukocytosis. I think this could be due to her deep venous thrombosis. At this time I do not think it is due to an infection. My plan would be to observe the patient now and not start any antibiotics. If the white count continues to go up, then I think cultures will be obtained and appropriate radiographic studies ordered and patient may be empirically started on antibiotics after the studies. 2. Comorbidities: She is elderly. She has had surgery recently, namely a colectomy. She also has diabetes mellitus and gastroesophageal reflux disease. cc: Timothy Guerrero MD
[2016-11-30] MEDS: PROTONIX IV SCH (21:37)
[2016-11-30] MEDS: SODIUM CHLORIDE 0.9% INJ SCH (21:37)
[2016-11-30] MEDS: KLONOPIN PO PRN (21:37)
[2016-11-30] MEDS: COUMADIN PO SCH (21:37)
[2016-12-01] MEDS: HUMALOG SUBQ SCH ×6 (02:08→23:02)
[2016-12-01] MEDS: MORPHINE IV PRN ×5 (02:08→19:58)
[2016-12-01] MEDS: CARAFATE LIQUID PO SCH ×4 (02:08→19:59)
[2016-12-01 06:52] LABS: MANUAL DIFF NEEDED? NO
[2016-12-01 07:02] LABS: INR 1.1; PROTIME 11.6 Seconds (9.2-11.7)
[2016-12-01 07:11] LABS: BASO% 0.3 % (0.0-0.8); EOS# 0.04 X1000 (0.0-0.7); EOS% 0.5 % (0.0-10.0); HEMATOCRIT 22.1 % (37.0-47.0); IMM GRAN# 0.08 X1000 (0.0-0.04); IMM GRAN% 0.9 % (0.0-0.5); LYMPH# 0.82 X1000 (1.2-3.4); LYMPH% 9.4 % (20.5-51.1); MCH 29.2 PG (27-31); MCHC 31.7 g/dL (33-37); MCV 92.1 FL (81-99); MONO# 1.17 X1000 (0.11-0.59); MONO% 13.4 % (1.7-9.3); MPV 10.8 FL (7.4-10.4); NEUT% 75.5 % (42.2-75.2); PLT 166 X1000 (130-400)
[2016-12-01 07:15] LABS: CALCIUM 7.8 mg/dL (8.8-10.2); POTASSIUM 3.7 mmol/L (3.5-5.1); TOTAL BILIRUBIN 0.74 mg/dL (0.20-1.00); TOTAL PROTEIN 5.5 g/dL (6.3-8.3)
--- NOTE | 2016-12-01 08:39 | Diag Imaging Result Doc PS360 ---
ABDOMEN/PELVIS W/O CONTRAST - 12/01/2016 INDICATION: Abdominal pain TECHNIQUE: A CT dose reduction protocol was used. COMPARISON: 11/16/2016 FINDINGS: There is a huge acute intramuscular hematoma along the right iliopsoas muscle. This measures 10 x 10 x 16 cm in AP lateral and craniocaudal dimensions. There is moderate to severe right hydronephrosis probably from mass effect from the adjacent hemorrhage. No bowel obstruction or inflammation. There is a trace bilateral pleural effusion. Bones are intact. IMPRESSION: Huge acute intramuscular hematoma of the right iliopsoas muscle. Electronically signed by Andrea Bird 12/01/2016 8:37 AM
[2016-12-01] MEDS: DULCOLAX PR SCH (09:12)
[2016-12-01] MEDS: LANTUS SUBQ SCH (09:13)
[2016-12-01] MEDS: FOLIC ACID PO SCH (09:13)
--- NOTE | 2016-12-01 12:47 | PROGRESS NOTE ---
DATE: 12/01/2016 SUBJECTIVE: This patient states that she is feeling good. She is complaining of right lower extremity weakness. Sensation is intact. She denies nausea, vomiting. No bowel movement for the past 24 hours. Her hemoglobin dropped and yesterday this patient was transfused. Her hemoglobin yesterday was 5.7, today is 7. Her INR was 8.12 and today it is 1.1. Her abdomen is a little bit distended and tender. I will ask for a CT scan of the abdomen to rule out any kind of bleed. OBJECTIVE: Vital Signs: Temperature 97.8 degrees, pulse 101, respiratory rate 14, blood pressure 122/55, oxygen saturation 100% on room air. HEENT: Head normocephalic. No trauma. PERRLA. Neck: Supple. No JVD. No masses. Central trachea. Chest: Clear to auscultation. No wheezing. No rales. Abdomen: Soft. Mildly distended. Mild generalized tenderness to palpation but mostly at the level of the right lower quadrant. Extremities: No edema. No clubbing. No cyanosis. Neurological: The patient is alert and oriented x3. She has right lower extremity discomfort and weakness. She is able to move her toes, ankle, and knee. LABORATORY: WBC 8.7, hemoglobin 7, hematocrit 22.1, platelets 166,000. Sodium 138, potassium 3.7, chloride 100, bicarbonate 24, BUN 44, creatinine 2.4, glucose 141, calcium 7.8, albumin 2. ASSESSMENT AND PLAN: 1. Right leg deep vein thrombosis. I stopped the warfarin and I gave her vitamin K. The INR today is normal. Yesterday her hemoglobin was 5.7 so she was transfused and the hemoglobin today is 7. Will monitor. 2. Right iliopsoas muscle intramuscular hematoma. Probably this is the reason why this patient is not moving enough her right lower extremity. Like I mentioned before, I stopped the Warfarin and I gave her vitamin K and the INR now is normal at 1.1. This patient cannot be on anticoagulation for this reason. Probably for her DVT we need to go ahead and ask for an IVC but I need to discuss this with the patient first. 3. Septic shock, resolved. 4. Metabolic encephalopathy, resolved. 5. History of peptic ulcer disease. Previously seen by Dr. Curtis and Dr. Tao and also she was reason recently evaluated by Dr. Cheng as well. I asked for occult blood in the stool but I do believe that this bleed is not inside the GI tract. Like I mentioned before, it is inside the iliopsoas muscle. 6. Possible diabetic gastroparesis. She is doing better as far as feeding. She is tolerating fluids but she states that she is not eating a whole lot of solids. 7. Acute kidney injury. That was resolved but now the creatinine increased to 2.4 and yesterday was 2.2. I have reconsulted nephrology again. 8. She presented with Escherichia coli and enterococcus urinary tract infection and that has been treated. 9. Physical deconditioning. Continue with physical therapy. They are considering to go to a rehab center upon discharge. 10. Constipation. Continue with the same management. cc: Vishal Carter MD
[2016-12-01] MEDS ORDERED: NS 1,000 ML IV ONE (14:24)
--- NOTE | 2016-12-01 14:49 | PROGRESS NOTE ---
DATE: 12/01/2016 NEPHROLOGY PROGRESS NOTE: SUBJECTIVE: We were asked to come back and see Ms. Hankins again. She presented originally to the hospital with acute kidney injury on the . She had sepsis and acute kidney injury. She did require hemodialysis on one occasion but had rapid recovery of her renal function and her dialysis was discontinued and then her hemodialysis catheter was removed from the right femoral vein. Unfortunately, she developed a DVT in the right leg and this was treated appropriately with anticoagulation. Unfortunately, she became coagulopathic in the last 2 days with INR as high as 8.1 yesterday. In that context, she had a precipitous drop in her hemoglobin from 10.7 on the to 5.[address] of the abdomen without contrast demonstrated a large retroperitoneal hematoma. She has been treated with blood transfusion and her coagulopathy has been addressed. Her INR is now 1.1. However in the last 24 hours her kidney function has deteriorated as evidenced by a rise in her creatinine from 0.7 on the to 2.0 on the , and 2.4 today. She has not noticed any change in her urine output. She does not have a Donohue catheter and her voided volumes are incompletely measured. She has no chest pain or palpitation, shortness of breath, etc. Her right leg remains very weak and she has some pain in the anterior right thigh. OBJECTIVE: Vital Signs: Blood pressure 134/64, heart rate 102, respiration 18, afebrile. General: She is an elderly woman, lying at 30 degrees, in no distress. Skin: Warm and dry. Conjunctivae are pink and moist. Pupils are equal and round. Oropharynx is clear, moist. Dentition normal. Tongue normal. Neck: Supple. Trachea is midline. Neck veins are not visible. Heart: Regular without gallops or murmurs. She does have an occasional murmur when there is a premature beat. Lungs: Have equal breath sounds. No crackles or wheezes. Abdomen: Soft, distended, mildly tender. Bowel sounds are present. No organomegaly or masses. Extremities: Have minimal edema in the right leg. No clubbing or cyanosis. Right leg is warmer than the left. LABORATORY DATA: Sodium 138, potassium 3.7, chloride 100, bicarbonate 24, BUN 44, creatinine 2.4. IMPRESSION/PLAN: Acute kidney injury. Likely secondary to acute blood loss with prerenal azotemia. She has received 1 unit of packed red blood cells and her hemoglobin has improved. I will give her 1 L of normal saline and then measure her kidney function again in the morning. She had imaging yesterday so I do not see any gain in repeated imaging. If she does not respond to the fluids then we will consider a broader evaluation. Her medications have been reviewed and no changes are required at this time. cc: Arnaud Doan MD
--- NOTE | 2016-12-01 15:41 | PROGRESS NOTE ---
DATE: 12/01/2016 SUBJECTIVE: Patient states she is feeling a little better. She does still complain of right leg weakness. No reported abdominal pain today. No report of nausea or vomiting. She had drop in her hemoglobin and hematocrit, a significant drop. She received packed red blood cells yesterday. OBJECTIVE: On evaluation on abdominal scan, it showed an enlarged right ileopsoas muscle, intramuscular hematoma. Vital Signs: Temperature 97.1 degrees, pulse 102, respirations 18, blood pressure 134/64. LABORATORY: Hematology: White count 8.76, hemoglobin 7.0, hematocrit 22.1. This is after receiving 2 units of packed red blood cells. MCV 92.1. Coagulation ProTime 11.6, INR 1.10. Chemistry: Sodium 138, potassium 3.7, chloride 100, CO2 of 24. BUN 44, creatinine 2.4, glucose 141. ASSESSMENT AND PLAN: 1. Anemia. 2. Large intramuscular hematoma in the iliopsoas muscle. 3. Acute kidney injury. She has been seen by Dr. Doan. There is no evidence of active GI bleed. Her Hemoccult stool was negative. Anemia is most likely from hematoma. GI will continue to follow and be available as needed. I have discussed this case with Dr. Curtis. Dictated by STEVE Solitario for Pedro Curtis MD cc: STEVE Mitchell MD
[2016-12-01 17:25] LABS: URINE MICRO REVIEW NEEDED? NO; URINE SOURCE CATH
[2016-12-01 17:36] LABS: BILIRUBIN URINE NEGATIVE (NEGATIVE); BLOOD URINE MODERATE (NEGATIVE); COLOR YELLOW; GLUCOSE URINE NEGATIVE (NEGATIVE); LEUKOCYTES URINE TRACE (NEGATIVE); NITRITE URINE NEGATIVE (NEGATIVE); PH URINE 5.5; PROTEIN URINE 70 mg/dL (NEGATIVE); SP GRAVITY URINE 1.015; TURBIDITY URINE HAZY (CLEAR); UR EPITHELIAL CELLS <10 /HPF (<10); URINE BACTERIA NEGATIVE /HPF; URINE RBC 20-40 /HPF (<10); UROBILINOGEN URINE NORMAL (NORMAL)
--- NOTE | 2016-12-01 18:37 | PROGRESS NOTE ---
DATE: 12/01/2016 HISTORY: This 76-year-old female, patient of Dr. 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 She developed acute renal failure and developed some renal failure. Dr. Schilling placed a Vas catheter in the right femoral vein on November 16. Renal function subsequently improved and she had her catheter removed but unfortunately developed swelling and DVT in right lower extremity. She is started on anticoagulation for this and this became quickly supratherapeutic up to an INR of 8.12 on the . Secondary to this she had a drop in her hematocrit caused by a retroperitoneal ileus psoas hematoma on the right side. Her anticoagulation has been reversed with INRs, has been transfused and is now hemodynamically stable. She complains of some right flank pain, some right lower extremity swelling but otherwise her hematocrit is up to 22. INR is 1.10. Creatinine is climbing at 2.4 now. PHYSICAL EXAM: Vital signs: Temperature is 97.8 degrees, pulse 95, blood pressure 122/55, oxygen saturation 99% on room air. General: She is alert, in no acute distress. Kind of chronically ill-appearing lady. Cardiovascular: Normal rate, regular rhythm. Abdomen: There is a well- healed midline incision. I do not see any flank ecchymosis. Her right lower extremity has 1+ edema relative to her left but is well perfused with normal pedal pulses. There is scar in the right groin from her Vas catheter but I do not see any signs of infection. White count is 8, hematocrit 22, platelets are 166. INR is 1.10. Creatinine is 2.4. ASSESSMENT AND PLAN: This is a 76-year-old female with multiple medical issues. Known to Dr. Schilling. Recently status post colectomy. He placed a Vas catheter and she developed DVT and subsequent right retroperitoneal hematoma. I will discuss the patient with him. I think in the meantime we will monitor her hematocrits while her anticoagulation was reversed. Question will be, will we be able to start her back on gentle anticoagulants for DVT ensuring that she does not become supratherapeutic versus need for IVC filter placement. I will discuss with Dr. Schilling. In meantime will need to follow hematocrit serially and transfuse as necessary. cc: Suyapa Gant MD
--- NOTE | 2016-12-01 19:23 | PROGRESS NOTE ---
DATE: 12/01/2016 PRESENT ILLNESS: The patient completed her treatment for urinary tract and bacteremia. She still had a leukocytosis. She also continued to complain of right-sided abdominal pain. MEDICATIONS: The patient is not on any antibiotics. LABORATORY AND X-RAY: CT scan shows a large right psoas hematoma. CBC shows a white count of 8760, hemoglobin 7, and platelet count 166,000. PHYSICAL EXAM: Vital Signs: Temperature is 97.1, pulse 88, respirations 14, blood pressure 134/64. Lungs: Clear to auscultation. Cardiovascular: Heart rate is regular. Abdomen: Soft and nontender. The midline incision is intact. Extremities: Patient has a PICC in the right arm. The site is not erythematous or swollen. Abdomen: Patient is not tender and no masses are appreciated. ASSESSMENT AND PLAN: The patient's white count has normalized. I do not think she has any active infection and I do not think she needs any further antibiotics. The right psoas hematoma most likely explains why the patient continues to have pain in the right side of her abdomen. COMORBIDITIES: Include being elderly, recently having surgery and also diabetes mellitus and gastroesophageal reflux disease. I am available to see the patient on a p.r.n. basis. I am signing off for now. cc: Timothy Guerrero MD
[2016-12-01] MEDS: COUMADIN PO SCH (20:03)
[2016-12-01] MEDS: PROTONIX IV SCH (20:03)
[2016-12-01] MEDS: KLONOPIN PO PRN (22:34)
[2016-12-02] MEDS: NS 1,000 ML IV SCH ×3 (03:53→16:33)
[2016-12-02] MEDS: MORPHINE IV PRN ×4 (03:55→21:10)
[2016-12-02] MEDS: CARAFATE LIQUID PO SCH ×4 (05:38→21:11)
[2016-12-02 06:58] LABS: HEMATOCRIT 21.7 % (37.0-47.0); MCHC 32.3 g/dL (33-37); MCV 93.1 FL (81-99); MPV 10.5 FL (7.4-10.4); RBC 2.33 XMIL (4.2-5.4)
[2016-12-02 07:05] LABS: CALCIUM 7.5 mg/dL (8.8-10.2); POTASSIUM 3.6 mmol/L (3.5-5.1)
[2016-12-02] MEDS: HUMALOG SUBQ SCH ×4 (08:10→21:10)
[2016-12-02] MEDS ORDERED: LANTUS SUBQ SCH (09:04)
[2016-12-02] MEDS: ULTRAM PO PRN (09:15)
[2016-12-02] MEDS: FOLIC ACID PO SCH (09:15)
[2016-12-02] MEDS ORDERED: NS 1,000 ML IV SCH (09:17)
[2016-12-02] MEDS: DULCOLAX PR SCH (09:26)
[2016-12-02] MEDS: LANTUS SUBQ SCH (09:26)
--- NOTE | 2016-12-02 13:47 | PROGRESS NOTE ---
DATE: 12/02/2016 TIME SEEN: 08:40 SUBJECTIVE: Ms. Hankins is currently resting quietly in bed. The head of the bed is elevated. She is in no acute distress. Her skin is warm and dry. She denies chest pain or increased work of breathing. OBJECTIVE: Vital Signs: Her most recent vital signs are temperature 98.4 degrees, blood pressure 127/54, heart rate 88, respirations 18. She is on room air. Last recorded saturation 97%. She has had 1900 in. She has had 1550 out. She is currently 3.5 L positive. LABS: Sodium 138, potassium 3.6, chloride CO2 25. BUN 40, creatinine 1.8. Glucose 73. Anion gap 11, calcium 7.5, phosphorus 2.5, albumin 2. Her white count 7.6, hemoglobin 7, hematocrit 21.7, with a platelet count of 179,000. Her PT is 11.6, her INR is down to 1.1. PHYSICAL EXAMINATION: General: This is a 76-year-old white female. She appears chronically ill. She is in no acute distress. Skin: Warm and dry. HEENT: Normocephalic, atraumatic. Conjunctiva is pale. She has pupils equal, round, and reactive to light. Mucous membranes moist. Neck: Supple. Trachea midline. No JVD. Cardiovascular: She is regular rate and rhythm. She is without murmur or gallop. Lungs: Clear to auscultation anterior on room air. Abdomen: Soft, nondistended. Mildly tender to palpation. Positive bowel sounds noted. Genitourinary: Patient has adequate urine out. Not inspected. Extremities: She has minimal edema right leg. No clubbing or cyanosis. Right leg is warmer still than the left. Neurological: Patient is forgetful. She is alert to person and to place. ASSESSMENT AND PLAN: 1. Acute kidney injury. Secondary to fluid volume depletion. Patient had acute blood loss and appeared prerenal with azotemia. She now had boluses of IV fluids. She has slowly recovered with a BUN of 40 and creatinine now down to 1.8. She continues with normal saline at 30 mL an hour after receiving an IV bolus yesterday. She has adequate urine output. She continues to have received a transfusion yesterday with a hemoglobin up to 7 from 5.7. 2. Electrolytes. These are stable. 3. Acid-base balance. This is stable. 4. Anemia. As mentioned previously, the patient has been transfused in this is now being followed by the primary care team. I would like to thank you for allowing us to follow with this patient. Seen, data reviewed, discussed with Nica Keller on 12/02/16. I agree with the above assessment and plan of care. rg Dictated by STEVE Edwards for Arnaud Doan MD cc: STEVE Edwards MD [facility]
--- NOTE | 2016-12-02 15:26 | PROGRESS NOTE ---
DATE: 12/02/2016 SUBJECTIVE: This patient states that she is feeling about the same. She is still complaining of right lower extremity weakness and right lower right side abdominal pain, this is likely related with her new ileal psoas hematoma. This patient has been transfused and the hemoglobin and hematocrit have been about the same compared with yesterday. I will monitor this for one more day. If tomorrow is about the same, probably I will transfuse this patient. OBJECTIVE: Vital Signs: Temperature 97.3 degrees, pulse 99, respiratory rate 18, blood pressure 131/57, oxygen saturation 98 on room air. HEENT: Head normocephalic. No trauma. PERRLA. Neck: Supple. No JVD. No masses. Central trachea. Chest: Clear to auscultation. No wheezing. No rales. Abdomen: Soft. Mildly distended. Right side abdominal pain mostly at the level of the right lower quadrant. Extremities: No edema. No clubbing. No cyanosis. Neurological: The patient is alert and oriented x3. She has right lower extremity discomfort and weakness. She is able to move her toes, ankle and knee. LABORATORY: WBC 7.6, hemoglobin 7, hematocrit 21.7, platelets 179,000. Sodium 138, potassium 3.6, chloride 102, bicarbonate 25, BUN 40, creatinine 1.8, glucose 73, calcium 7.5, phosphorus 2.5, albumin 2. ASSESSMENT AND PLAN: 1. Right leg deep vein thrombosis. Warfarin has been stopped. She received vitamin K and now the INR is normal. Just two days ago the hemoglobin was 5.7. She was transfused with 2 PRBCs and the hemoglobin has been 7 since yesterday. We will continue to monitor. 2. Right iliopsoas muscle hematoma. This is probably the reason why this patient is not moving her right lower extremity enough and abdominal pain. We have 2 options. We can start this patient again on anticoagulation slowly or we can place an IVC filter. The case was discussed already with Surgery and they will re-evaluate this patient. 3. Septic shock. Resolved. 4. Metabolic encephalopathy. Resolved. 5. History of peptic ulcer disease. Previously seen by Gastroenterology. I asked for occult blood in the stool that is negative. We will continue to monitor. 6. Possible diabetic gastroparesis. She is doing better as far as feeding. We will continue with the same management. 7. Acute kidney injury. Today is better. She received a bolus of IV fluids. We will continue with the same rate of IV fluids. 8. She presented with Escherichia coli and enterococcus urinary tract infection that has been treated. 9. Physical deconditioning. Continue with physical therapy. They are considering to go to a rehab center upon discharge. 10. Constipation. I will continue with suppository daily, and I will put this patient on MiraLAX twice a day. cc: Vishal Carter MD
[2016-12-02 18:46] LABS: UR CREAT RANDOM 51.3 mg/dL (11-20)
[2016-12-02] MEDS: COUMADIN PO SCH (21:11)
[2016-12-02] MEDS: PROTONIX IV SCH (21:11)
[2016-12-02] MEDS: KLONOPIN PO PRN (21:11)
[2016-12-02] MEDS: SODIUM CHLORIDE 0.9% INJ SCH (21:11)
[2016-12-02] MEDS: MIRALAX PO SCH (21:12)
[2016-12-03] MEDS: CARAFATE LIQUID PO SCH ×4 (01:50→20:32)
[2016-12-03] MEDS: NS 1,000 ML IV SCH (01:50)
[2016-12-03] MEDS: MORPHINE IV PRN ×6 (01:54→20:54)
[2016-12-03] MEDS: ULTRAM PO PRN ×3 (01:55→18:47)
[2016-12-03] MEDS: HUMALOG SUBQ SCH ×4 (06:52→17:24)
[2016-12-03 07:33] LABS: HEMATOCRIT 21.3 % (37.0-47.0); HEMOGLOBIN 6.7 g/dL (12.0-16.0); MCH 29.4 PG (27-31); MCHC 31.5 g/dL (33-37); MCV 93.4 FL (81-99); MPV 10.2 FL (7.4-10.4); RBC 2.28 XMIL (4.2-5.4)
[2016-12-03 07:55] LABS: ALBUMIN 2.1 g/dL (3.5-5.0); CALCIUM 7.6 mg/dL (8.8-10.2); POTASSIUM 3.6 mmol/L (3.5-5.1)
[2016-12-03] MEDS: FOLIC ACID PO SCH (09:30)
[2016-12-03] MEDS: DULCOLAX PR SCH ×2 (09:30→11:14)
[2016-12-03] MEDS: MIRALAX PO SCH ×2 (09:30→20:30)
[2016-12-03] MEDS: LANTUS SUBQ SCH (09:30)
--- NOTE | 2016-12-03 10:07 | PROGRESS NOTE ---
DATE: 12/03/2016 SUBJECTIVE: She has no new complaints. She is still having pain in her abdomen. Not particularly hungry. OBJECTIVE: Vital Signs: Blood pressure 154/81 ,heart rate 100, respiration 18, afebrile. Intake 900 mL. Output 3.7 L. General: On physical exam, no acute distress. Skin: Warm and dry. Eyes: Conjunctivae are pink. Pupils are equal. Neck: Neck veins are not distended. Trachea is midline. Heart: Regular without gallops or murmurs. Lungs: Have equal breath sounds. No crackles or wheezes. Abdomen: Soft, nontender. Bowel sounds are present. Extremities: Have 1+ edema in the right leg. No clubbing or cyanosis. LABORATORY DATA: Sodium 138, potassium 3.6, chloride 102, bicarbonate 25, BUN 31, creatinine 1.3. IMPRESSION: Acute kidney injury secondary to acute blood loss and volume contraction. Improving. I will sign off today. If I can be of further assistance, please do not hesitate to call. cc: Arnaud Doan MD
--- NOTE | 2016-12-03 14:10 | PROGRESS NOTE ---
DATE: 12/03/2016 SUBJECTIVE: This patient is still complaining of right lower quadrant pain. She denies nausea, vomiting, diarrhea, constipation. Her hemoglobin today was 6.7, I will transfuse this patient with 2 units of PRBCs. The kidney function is getting better. OBJECTIVE: Vital Signs: Temperature 98.7 degrees, pulse 96, respiratory rate 15, blood pressure 154/72, oxygen saturation 98% on room air. HEENT: Head normocephalic. No trauma. PERRLA. Neck: Supple. No JVD. No masses. Central trachea. Chest: Clear to auscultation. No wheezing. No rales. Abdomen: Soft, tender to palpation at the level of the right lower quadrant with some mild generalized discomfort. Extremities: Right lower extremity edema. Decreased muscle mass. Neurological: The patient is alert and oriented x3. She moves all 4 extremities, but the right lower extremity is weak. LABORATORY: WBC 5, hemoglobin 6.7, hematocrit 21.3, platelets 197,000. Sodium 138, potassium 3.6, chloride 102, bicarbonate 25, BUN 31, creatinine 1.3, glucose 113, calcium 7.6, albumin 2.1. ASSESSMENT AND PLAN: 1. Right leg DVT. Warfarin has been stopped. The INR a couple of days ago was 1.1. We will continue to monitor. I will transfuse 2 units of PRBCs today since the hemoglobin is 6.7. Surgery Department is following this patient. I am not sure if they are going to place an inferior vena cava filter or if we need to start again on anticoagulation. 2. Right iliopsoas muscle hematoma. This is probably the reason why this patient is not moving the right lower extremity enough and abdominal pain. We have I think 2 options. We can start this patient again on anticoagulation in a few days and/or place an IVC filter. The case was discussed already with Surgery and they agree. They will they will let us know. 3. Septic shock. Resolved. 4. Metabolic encephalopathy. Resolved. 5. Anemia, likely hemorrhagic, she is getting 2 units of PRBCs today. 6. History of peptic ulcer disease. Gastroenterology saw this patient. Continue to monitor. 7. Possible diabetic gastroparesis. She is doing better. She is not complaining of nausea or vomiting. 8. Acute kidney injury. She is getting better every day. This is likely secondary to a prerenal injury, she has a hemorrhagic lesion. We will monitor. 9. She presented with Escherichia coli and enterococcus urinary tract infection. That has been treated. 10. Physical deconditioning. Continue physical therapy. They are considering to go to a rehab center upon discharge. 11. Constipation. She is having bowel movements today. We will continue to monitor. Continue with the same treatment. cc: Vishal Carter MD
[2016-12-03] MEDS: COUMADIN PO SCH (20:30)
[2016-12-03] MEDS: PROTONIX IV SCH (20:33)
[2016-12-03] MEDS: SODIUM CHLORIDE 0.9% INJ SCH (20:33)
[2016-12-03] MEDS: KLONOPIN PO PRN (20:56)
[2016-12-03 21:31] LABS: INR 1.75
[2016-12-03 21:51] LABS: PTT 44.2 Seconds (22.0-36.0)
[2016-12-04] MEDS: HUMALOG SUBQ SCH ×5 (01:18→23:40)
[2016-12-04] MEDS: CARAFATE LIQUID PO SCH ×4 (03:50→20:23)
[2016-12-04] MEDS: MORPHINE IV PRN ×8 (04:45→23:16)
[2016-12-04 07:20] LABS: BASO% 0.4 % (0.0-0.8); EOS# 0.21 X1000 (0.0-0.7); EOS% 4.2 % (0.0-10.0); HEMATOCRIT 32.1 % (37.0-47.0); HEMOGLOBIN 10.6 g/dL (12.0-16.0); LYMPH# 0.74 X1000 (1.2-3.4); LYMPH% 14.7 % (20.5-51.1); MANUAL DIFF NEEDED? NO; MCH 30.6 PG (27-31); MCV 92.8 FL (81-99); MONO% 19.9 % (1.7-9.3); NEUT% 60.8 % (42.2-75.2); PLT 191 X1000 (130-400); RBC 3.46 XMIL (4.2-5.4)
[2016-12-04] MEDS ORDERED: INSULIN PEN NEEDLES ONE (07:32)
[2016-12-04 07:38] LABS: AGAP 13; ALBUMIN 1.9 g/dL (3.5-5.0); BUN 19 mg/dL (8-22); CHLORIDE 98 mmol/L (98-107); COSMO 284; SODIUM 140 mmol/L (136-145); TCO2 29 mmol/L (25-35)
[2016-12-04] MEDS: NS 1,000 ML IV SCH (07:49)
[2016-12-04] MEDS: POTASSIUM CHLORIDE 40 MEQ/SWI 40 MEQ/100 ML IVPB IV ONE ×2 (07:53→10:34)
[2016-12-04] MEDS: FOLIC ACID PO SCH (10:34)
[2016-12-04] MEDS: LANTUS SUBQ SCH (10:35)
[2016-12-04] MEDS: DULCOLAX PR SCH (10:35)
[2016-12-04] MEDS: MIRALAX PO SCH ×2 (10:35→20:23)
--- NOTE | 2016-12-04 12:30 | PROGRESS NOTE ---
DATE: 12/04/2016 SUBJECTIVE: This patient is still complaining of right lower quadrant pain. She denies nausea, vomiting, diarrhea, or constipation. Her hemoglobin was low yesterday and she has been transfused. Now the hemoglobin is much better at 10.6. Also her kidney injury has resolved. Surgery department evaluated this patient and has since the hemoglobin has been stable for the past days we will go ahead and restart this patient on a low dose of anticoagulation and we will check the PT/INR and on a daily basis. OBJECTIVE: Vital Signs: Temperature 98 degrees, pulse 95, respiratory rate 16, blood pressure 156/75, oxygen saturation 96 on room air. HEENT: Head normocephalic. No trauma. PERRLA. Neck: Supple. No JVD. No masses. Central trachea. Chest: Clear to auscultation. No wheezing. No rales. Abdomen: Soft, mild tenderness to palpation at the right lower quadrant with some mild generalized discomfort. Extremities: Right lower extremity edema, 1+, decreased muscle mass. Neurological: The patient is alert and oriented x3. She moves all 4 extremities but the right lower extremity is weak. LABORATORY: WBC 5, hemoglobin 10.6, hematocrit 32.1. Platelets 191,000. Sodium 140, potassium 3, chloride 98, bicarbonate 29, BUN 19, creatinine 0.9, glucose 148, calcium 8, phosphorus 2, albumin 1.9. ASSESSMENT AND PLAN: 1. Right leg deep venous thrombosis. I will restart this patient on warfarin low dose. I will check her INR and PT on a daily basis. Surgery department is following this patient closely in case of re-bleed they will put in an IVC filter. 2. Right the ileal psoas muscle hematoma. This is probably the reason why this patient is not moving the right lower extremity enough and also the abdominal pain. We have started today a low dose of warfarin. Will monitor. 3. Septic shock. Resolved. 4. Anemia likely hemorrhagic. She had 2 units of PRBCs yesterday and the hemoglobin is above 10 now. 5. Metabolic encephalopathy. Resolved. 6. Possible diabetic gastroparesis. She is doing better. 7. Acute kidney injury. Resolved. 8. She presented with Escherichia coli and enterococcus urinary tract infection. That has been treated. 9. Physical deconditioning. Continue with physical therapy. They are considering to go to a rehab center upon discharge. 10. Constipation. She has been having bowel movements daily. Continue with the same treatment for now. 11. Hypokalemia. I would replace the potassium. cc: Vishal Carter MD
[2016-12-04] MEDS: SODIUM CHLORIDE 0.9% INJ SCH (20:23)
[2016-12-04] MEDS: PROTONIX IV SCH (20:23)
[2016-12-04] MEDS: COUMADIN PO SCH (20:23)
[2016-12-04] MEDS: KLONOPIN PO PRN (23:23)
[2016-12-05] MEDS: CARAFATE LIQUID PO SCH ×4 (03:50→21:06)
[2016-12-05] MEDS: MORPHINE IV PRN ×7 (06:13→23:26)
[2016-12-05 07:07] LABS: BASO% 1.9 % (0.0-0.8); EOS# 0.23 X1000 (0.0-0.7); EOS% 3.7 % (0.0-10.0); HEMATOCRIT 32.2 % (37.0-47.0); HEMOGLOBIN 10.6 g/dL (12.0-16.0); IMM GRAN# 0.25 X1000 (0.0-0.04); LYMPH# 0.84 X1000 (1.2-3.4); LYMPH% 13.4 % (20.5-51.1); MANUAL DIFF NEEDED? YES; MCH 30.1 PG (27-31); MCHC 32.9 g/dL (33-37); MCV 91.5 FL (81-99); MONO# 1.29 X1000 (0.11-0.59); MONO% 20.6 % (1.7-9.3); MPV 10.1 FL (7.4-10.4); NEUT% 56.4 % (42.2-75.2); PLT 198 X1000 (130-400); RBC 3.52 XMIL (4.2-5.4)
[2016-12-05] MEDS: HUMALOG SUBQ SCH ×5 (07:10→21:03)
[2016-12-05 07:25] LABS: BANDS 10 % (0-1); EOS 4 % (1-10); LYMPHS 14 % (21-51); MONO 14 % (1-9)
[2016-12-05 07:29] LABS: AGAP 14; BUN 15 mg/dL (8-22); CALCIUM 7.7 mg/dL (8.8-10.2); CHLORIDE 95 mmol/L (98-107); COSMO 286; POTASSIUM 3.4 mmol/L (3.5-5.1); SODIUM 141 mmol/L (136-145); TCO2 32 mmol/L (25-35)
[2016-12-05] MEDS ORDERED: KLOR-CON PO ONE (07:45)
[2016-12-05] MEDS: NS 1,000 ML IV SCH (09:39)
[2016-12-05] MEDS: MIRALAX PO SCH ×2 (09:40→21:07)
[2016-12-05] MEDS: LANTUS SUBQ SCH (09:40)
[2016-12-05] MEDS: DULCOLAX PR SCH (09:41)
[2016-12-05] MEDS: FOLIC ACID PO SCH (09:41)
[2016-12-05 10:31] LABS: INR 2.41; PROTIME 26.8 Seconds (9.2-11.7)
[2016-12-05] MEDS: NORCO-5 PO PRN (11:06)
--- NOTE | 2016-12-05 14:04 | PROGRESS NOTE ---
DATE: 12/05/2016 SUBJECTIVE: This patient is still complaining of right lower quadrant abdominal pain and right lower extremity weakness. She has a large hematoma at the level of the right iliopsoas muscle and I think this pain and the lower extremity weakness is related to this. We started this patient with a low dose of warfarin. She is getting warfarin just 1 mg and today her INR is 2.4; it is therapeutic. We will continue with the same management. Will monitor this closely. OBJECTIVE: Vital Signs: Temperature 99.4 degrees, pulse 110, respiratory rate 16, blood pressure 137/79, oxygen saturation 97% on room air. HEENT: Head normocephalic. No trauma. PERRLA. Neck: Supple. No JVD. No masses. Central trachea. Chest: Clear to auscultation. No wheezing. No rales. Abdomen: Soft. Mild tenderness to palpation at the level of the right lower quadrant. Extremities: Right lower extremity edema 1+. Decreased muscle mass. Neurological: The patient is alert and oriented x3. She moves all 4 extremities but the right lower extremity is weak. She has problem with a hip fracture. LABORATORY: WBC 6.2, hemoglobin 10.6, hematocrit 32.2, platelets 198,000. PT 26.8, INR 2.4. Sodium 141, potassium 3.4, chloride 95, bicarbonate 32, BUN 15, creatinine 0.7, glucose 177, calcium 7.7. ASSESSMENT AND PLAN: 1. Right leg deep vein thrombosis. Continue warfarin low dose. INR is therapeutic. Surgery department is following this patient. In case of free bleed they will put an IVC filter. 2. Right iliopsoas muscle hematoma. Probably this is the reason why this patient is not moving the right lower extremity enough and also the abdominal pain. We have started warfarin low dose 1 mg daily and the INR looks therapeutics today. Will monitor the PT/INR closely. 3. Septic shock, resolved. 4. Anemia, likely hemorrhagic. She received 2 more units of PRBCs 2 days ago. Hemoglobin and hematocrit have been stable. 5. Metabolic encephalopathy. Resolved. 6. Possible diabetic gastroparesis. She is doing better. 7. Acute kidney injury. Resolved. 8. She presented with Escherichia coli and enterococcus urinary tract infection. Those have been treated. 9. Physical deconditioning. Continue physical therapy. The patient and the family members are considering to go to a rehab center upon discharge. 10. Constipation. She has been having bowel movements daily. Continue with the same management. cc: Vishal Carter MD
[2016-12-05] MEDS: KLONOPIN PO PRN (21:05)
[2016-12-05] MEDS: ULTRAM PO PRN (21:05)
[2016-12-05] MEDS: COUMADIN PO SCH (21:06)
[2016-12-05] MEDS: PROTONIX IV SCH (21:06)
[2016-12-05] MEDS: SODIUM CHLORIDE 0.9% INJ SCH (21:06)
[2016-12-06] MEDS: CARAFATE LIQUID PO SCH ×4 (02:26→21:16)
[2016-12-06] MEDS: NS 1,000 ML IV SCH (04:56)
[2016-12-06] MEDS: MORPHINE IV PRN ×7 (06:08→23:47)
[2016-12-06] MEDS: HUMALOG SUBQ SCH ×4 (06:24→23:32)
[2016-12-06 07:48] LABS: AGAP 11; BUN 14 mg/dL (8-22); CALCIUM 7.4 mg/dL (8.8-10.2); CHLORIDE 96 mmol/L (98-107); COSMO 278; POTASSIUM 3.6 mmol/L (3.5-5.1); SODIUM 138 mmol/L (136-145); TCO2 31 mmol/L (25-35)
[2016-12-06 07:53] LABS: BASO% 0.7 % (0.0-0.8); EOS# 0.35 X1000 (0.0-0.7); HEMATOCRIT 32.8 % (37.0-47.0); HEMOGLOBIN 10.5 g/dL (12.0-16.0); LYMPH# 0.83 X1000 (1.2-3.4); LYMPH% 14.3 % (20.5-51.1); MANUAL DIFF NEEDED? YES; MCH 30.2 PG (27-31); MCV 94.3 FL (81-99); MONO# 0.99 X1000 (0.11-0.59); MONO% 17.1 % (1.7-9.3); MPV 10.1 FL (7.4-10.4); NEUT% 61.9 % (42.2-75.2); PLT 178 X1000 (130-400); RBC 3.48 XMIL (4.2-5.4)
[2016-12-06 07:58] LABS: INR 1.92
[2016-12-06] MEDS: DUONEB (A & A) INH PRN (08:18)
[2016-12-06 08:46] LABS: EOS 10 % (1-10); LYMPHS 22 % (21-51); MONO 8 % (1-9)
[2016-12-06] MEDS: ULTRAM PO PRN (09:24)
[2016-12-06] MEDS: FOLIC ACID PO SCH (09:24)
[2016-12-06] MEDS: DULCOLAX PR SCH (09:24)
[2016-12-06] MEDS: LANTUS SUBQ SCH (09:26)
[2016-12-06] MEDS: MIRALAX PO SCH ×2 (09:26→21:17)
--- NOTE | 2016-12-06 15:19 | PROGRESS NOTE ---
DATE: 12/06/2016 SUBJECTIVE: This patient feels a little bit better, but she is still complaining of right lower quadrant abdominal pain and right lower extremity weakness. She has a large hematoma at the level of the right iliopsoas muscle and I think this pain and the lower extremity weakness is related to these. I had recently started this patient on a low dose warfarin, 2 days ago with just 1 mg daily, her INR yesterday was with 2.4 and today 1.92. I think we need to monitor this closely. If she starts bleeding again, we need to consider an IVC filter. If the INR is stable, therapeutic, this patient can be discharged to a rehab center. I placed a consult for school social worker to find a place for this patient. OBJECTIVE: Vital Signs: Temperature 97.7 degrees, pulse 106, respiratory rate 20, blood pressure 143/73, O2 saturation 96% on room air. HEENT: Head normocephalic. No trauma. PERRLA. Neck: Supple. No JVD. No masses. Central trachea. Chest: Clear to auscultation. No wheezing. No rales. Abdomen: Soft, mild tenderness to palpation at the level of the right lower quadrant. Extremities: Right lower extremity edema 1+. Decreased muscle mass. Neurological: The patient is alert and oriented x3. She moves all 4 extremities, but the right lower extremity is weak, sensation is intact. LABORATORY: WBC 5.7, hemoglobin 10.5, hematocrit 32.8, platelets 178,000. PTT 21, INR 1.92, sodium 138, potassium 3.6, chloride 96, bicarbonate 31, BUN 14, creatinine 0.8, glucose 134, calcium 7.4. ASSESSMENT AND PLAN: 1. Right leg DVT. Continue with warfarin low dose, INR yesterday was 2.4 and today 1.92, Surgery Department is following this patient. If the patient starts bleeding again, probably Surgery will put an IVC filter. If she does not bleed and the INR is therapeutic, probably this patient can be discharged to a rehab center, I already placed a consult for school social worker. 2. Right iliopsoas muscle hematoma. Continue to monitor. We will monitor the PT/INR closely. 3. Septic shock, resolved. 4. Anemia, likely hemorrhagic. She received multiple PRBCs a few days ago. Hemoglobin and hematocrit have been stable. 5. Metabolic encephalopathy. Resolved. 6. Possible diabetic gastroparesis. She is doing better, will monitor. 7. Acute kidney injury. Resolved. 8. She presented with Escherichia coli and enterococcus urinary tract infection. Those have been treated already. 9. Physical deconditioning. Continue physical therapy. This patient and the family members are considering to go to a rehab center upon discharge. So a social service consult has been placed. 10. Constipation. She is doing better. She has been having a bowel movement daily. Continue with the same management. cc: Vishal Carter MD
[2016-12-06] MEDS: PROTONIX IV SCH (21:16)
[2016-12-06] MEDS: COUMADIN PO SCH (21:16)
[2016-12-06] MEDS: SODIUM CHLORIDE 0.9% INJ SCH (21:16)
[2016-12-06] MEDS: KLONOPIN PO PRN (21:19)
[2016-12-07] MEDS: NORCO-5 PO PRN ×2 (00:32→21:35)
[2016-12-07] MEDS: CARAFATE LIQUID PO SCH ×4 (01:38→21:35)
[2016-12-07] MEDS: MORPHINE IV PRN ×5 (01:42→18:31)
[2016-12-07] MEDS: NS 1,000 ML IV SCH ×2 (04:31→13:40)
[2016-12-07 07:04] LABS: INR 1.61; PROTIME 17.4 Seconds (9.2-11.7)
[2016-12-07 07:21] LABS: BASO% 0.7 % (0.0-0.8); EOS# 0.37 X1000 (0.0-0.7); EOS% 6.2 % (0.0-10.0); HEMATOCRIT 30.8 % (37.0-47.0); HEMOGLOBIN 9.9 g/dL (12.0-16.0); IMM GRAN% 5.1 % (0.0-0.5); LYMPH# 1.14 X1000 (1.2-3.4); LYMPH% 19.2 % (20.5-51.1); MANUAL DIFF NEEDED? YES; MCH 29.6 PG (27-31); MCHC 32.1 g/dL (33-37); MCV 92.2 FL (81-99); MONO# 0.94 X1000 (0.11-0.59); MONO% 15.9 % (1.7-9.3); MPV 10.2 FL (7.4-10.4); NEUT% 52.9 % (42.2-75.2); PLT 180 X1000 (130-400); RBC 3.34 XMIL (4.2-5.4)
[2016-12-07 07:43] LABS: AGAP 8; BUN 14 mg/dL (8-22); CALCIUM 7.3 mg/dL (8.8-10.2); CHLORIDE 96 mmol/L (98-107); COSMO 274; POTASSIUM 3.2 mmol/L (3.5-5.1); SODIUM 136 mmol/L (136-145); TCO2 32 mmol/L (25-35)
[2016-12-07] MEDS: HUMALOG SUBQ SCH ×4 (07:55→21:36)
[2016-12-07 08:19] LABS: BANDS 6 % (0-1); EOS 8 % (1-10); LYMPHS 16 % (21-51); MONO 10 % (1-9)
[2016-12-07] MEDS: FOLIC ACID PO SCH (10:50)
[2016-12-07] MEDS: LANTUS SUBQ SCH (10:52)
[2016-12-07] MEDS: DULCOLAX PR SCH (10:52)
[2016-12-07] MEDS: MIRALAX PO SCH ×2 (10:52→21:36)
[2016-12-07] MEDS ORDERED: KLOR-CON PO ONE (12:01)
--- NOTE | 2016-12-07 13:41 | PROGRESS NOTE ---
DATE: 12/07/2016 SUBJECTIVE: Patient reports feeling fine. No abdominal pain. No signs of bleeding. No vomiting blood or having blood in the stools or blood in the urine. OBJECTIVE: Vital Signs: Temperature 98.9, heart rate 102, respiratory 20, blood pressure 121/75. O2 saturation 95% on room air. General: This is a 76-year-old female lying in bed in no acute distress. HEENT: Head is normocephalic, and atraumatic. Anicteric sclerae. Pale conjunctivae. Mucous membranes moist. Neck is supple. No JVD noted. No carotid bruits. No lymphadenopathy. No thyromegaly. Cardiovascular: S1, S2 heard. No murmurs, gallops, or rubs. Regular rate and rhythm. Respiratory: Clear bilaterally to auscultation. No work of breathing or using accessory muscles. Abdomen is soft, nontender to palpation. Bowel sounds present. No organomegaly. Extremities: 1+ pitting edema in right lower extremity with decreased muscle mass. Neurologic: Patient alert and oriented x3. Moves 4 extremities. LABORATORY DATA: Hemoglobin is 9.9 with platelet 180 and BMP reveals potassium 3.2. ASSESSMENT AND PLAN: 1. Right leg deep vein thrombosis. The patient is on warfarin. This patient has been receiving low doses of warfarin. In this case, 1 mg p.o. at bedtime, and I am planning to increase it to 5 because the INR is going to be subtherapeutic. At this point, we are going to continue with warfarin. 2. Right iliopsoas muscle hematoma. We will continue to monitor. Hemoglobin is stable so far. 3. Septic shock, resolved. 4. Anemia of blood loss, much better. 5. Metabolic encephalopathy, resolved. 6. Possible diabetic gastroparesis. The patient is doing much better. 7. Acute kidney injury, resolved. 8. Urinary tract infection. That condition is completely resolved. 9. Physical deconditioning. Patient is working with physical therapy. DISPOSITION: The patient is awaiting rehab facility placement. line out worker has been already notified and working on the case. cc: Babak Hackett MD
[2016-12-07] MEDS: SODIUM CHLORIDE 0.9% INJ SCH (21:35)
[2016-12-07] MEDS: PROTONIX IV SCH (21:35)
[2016-12-07] MEDS: COUMADIN PO SCH (21:36)
[2016-12-07] MEDS: KLONOPIN PO PRN (21:37)
[2016-12-08] MEDS: ULTRAM PO PRN ×2 (01:16→19:25)
[2016-12-08] MEDS: CARAFATE LIQUID PO SCH ×4 (01:17→19:25)
[2016-12-08] MEDS: NS 1,000 ML IV SCH (05:00)
[2016-12-08] MEDS: NORCO-5 PO PRN ×2 (06:36→20:47)
[2016-12-08] MEDS ORDERED: INSULIN PEN NEEDLES ONE (06:55)
[2016-12-08] MEDS: HUMALOG SUBQ SCH ×4 (07:00→20:20)
[2016-12-08 07:06] LABS: INR 1.49; PROTIME 16.1 Seconds (9.2-11.7)
[2016-12-08] MEDS: MORPHINE IV PRN ×4 (08:25→22:28)
[2016-12-08 10:52] LABS: BASO% 0.4 % (0.0-0.8); EOS# 0.34 X1000 (0.0-0.7); EOS% 4.9 % (0.0-10.0); HEMATOCRIT 30.9 % (37.0-47.0); HEMOGLOBIN 9.8 g/dL (12.0-16.0); IMM GRAN# 0.36 X1000 (0.0-0.04); IMM GRAN% 5.2 % (0.0-0.5); LYMPH# 1.06 X1000 (1.2-3.4); LYMPH% 15.4 % (20.5-51.1); MANUAL DIFF NEEDED? YES; MCH 29.3 PG (27-31); MCHC 31.7 g/dL (33-37); MCV 92.2 FL (81-99); MONO# 0.81 X1000 (0.11-0.59); MONO% 11.8 % (1.7-9.3); MPV 10.3 FL (7.4-10.4); NEUT% 62.3 % (42.2-75.2); PLT 194 X1000 (130-400); RBC 3.35 XMIL (4.2-5.4)
[2016-12-08 10:56] LABS: AGAP 10; BUN 13 mg/dL (8-22); CALCIUM 7.3 mg/dL (8.8-10.2); CHLORIDE 97 mmol/L (98-107); COSMO 278; POTASSIUM 4.2 mmol/L (3.5-5.1); SODIUM 135 mmol/L (136-145); TCO2 28 mmol/L (25-35)
[2016-12-08] MEDS: DULCOLAX PR SCH (10:59)
[2016-12-08] MEDS: LANTUS SUBQ SCH (11:01)
[2016-12-08] MEDS: FOLIC ACID PO SCH (11:02)
[2016-12-08 11:05] LABS: BANDS 2 % (0-1); EOS 6 % (1-10); LYMPHS 18 % (21-51); MONO 14 % (1-9)
--- NOTE | 2016-12-08 12:03 | PROGRESS NOTE ---
DATE: 12/08/2016 SUBJECTIVE: Patient reports feeling fine. Some abdominal pain, but no signs of bleeding. No vomiting blood. No blood in the stools. OBJECTIVE: Vital Signs: Temperature 98.8 degrees, heart rate 93, respiratory rate 12, blood pressure 129/68, O2 saturation 97% on room air. General examination: This is a 76-year-old female, lying in bed in no acute distress. HEENT: Head is normocephalic, atraumatic. Anicteric sclerae and pale conjunctivae. Mucous membranes moist. Neck: Supple. No JVD noted. No carotid bruits. No lymphadenopathy. No thyromegaly. Cardiovascular exam: S1 and S2 heard. No murmurs, gallops, or rubs. Regular rate and rhythm. Respiratory exam: Clear bilaterally to auscultation. No work of breathing or using accessory muscles. Abdomen: Soft, nontender to palpation. Bowel sounds present. No organomegaly. Extremities: 1+ pitting edema in both lower extremities. Decreased muscle mass. Neurological exam: Patient alert and oriented x3. Moves 4 extremities. LABORATORY DATA: The hemoglobin is 9.8 today with normal BMP and glucose 235. ASSESSMENT AND PLAN: 1. Right leg deep vein thrombosis. The patient is on warfarin and she was receiving 1 mg of warfarin at bedtime. We have increased it to 5, but still the INR is subtherapeutic. We will check INR for next few days and see how she does. 2. Right ileal-psoas muscle hematoma, resolved. Hemoglobin is stable so far. We will continue to monitor. 3. Septic shock, resolved. 4. Anemia of blood loss much better, stable. 5. Possible diabetic gastroparesis. The patient is not complaining of any nausea any more. 6. Acute kidney injury, resolved. 7. Urinary tract infection. Condition is completely resolved. 8. Physical deconditioning. Patient is working with physical therapy, waiting for a bed in the rehabilitation facility. cc: Babak Hackett MD
[2016-12-08] MEDS: MIRALAX PO SCH ×2 (12:14→20:47)
[2016-12-08] MEDS: KLONOPIN PO PRN (20:47)
[2016-12-08] MEDS: COUMADIN PO SCH (20:47)
[2016-12-08] MEDS: SODIUM CHLORIDE 0.9% INJ SCH (20:47)
[2016-12-08] MEDS: PROTONIX IV SCH (20:47)
[2016-12-09] MEDS: CARAFATE LIQUID PO SCH ×2 (01:50→09:37)
[2016-12-09] MEDS: NORCO-5 PO PRN ×2 (06:17→09:38)
[2016-12-09] MEDS: NS 1,000 ML IV SCH (06:18)
[2016-12-09] MEDS: HUMALOG SUBQ SCH ×2 (06:20→12:07)
[2016-12-09 07:06] LABS: AGAP 8; BUN 12 mg/dL (8-22); CALCIUM 7.4 mg/dL (8.8-10.2); CHLORIDE 100 mmol/L (98-107); COSMO 275; POTASSIUM 3.8 mmol/L (3.5-5.1); SODIUM 135 mmol/L (136-145); TCO2 27 mmol/L (25-35)
[2016-12-09 07:18] LABS: INR 1.35; PROTIME 14.4 Seconds (9.2-11.7)
[2016-12-09] MEDS: FOLIC ACID PO SCH (09:38)
[2016-12-09] MEDS: MIRALAX PO SCH (09:38)
[2016-12-09] MEDS: LANTUS SUBQ SCH (09:38)
[2016-12-09] MEDS: DULCOLAX PR SCH (09:38)
[2016-12-09] MEDS: MORPHINE IV PRN (11:04)
--- NOTE | 2016-12-09 13:26 | DISCHARGE SUMMARY ---
ADMISSION DATE: 11/16/2016 DISCHARGE DATE: 12/09/2016 CONSULTATIONS: 1. Dr. Doan with nephrology. 2. Dr. Sourav Schilling with general surgery. 3. Dr. Timothy Guerrero with infectious disease. 4. Dr. Ernst with hematology. 5. Dr. Mckenzie Cheng with gastroenterology. PERTINENT PROCEDURES: 1. Abdomen and pelvis CT showed no evidence of bowel obstruction. Postsurgical changes of colectomy. Nonobstructing left renal stone. Right ovarian cyst. 2. Renal ultrasound showed stable simple right renal cyst essentially unremarkable. Right femoral vein Vas-Cath placement by Dr. Schilling. 3. Extensive acute DVT throughout the right lower extremity on venous Doppler ultrasound. 4. Modified barium swallow showed mild intermittent cricopharyngeus hypertrophy, a few mild tertiary contractions of the distal esophagus suggesting mild dysmotility. 5. Hip and pelvis x-ray showed no acute disease or change from prior. 6. Abdomen and pelvis CT showed huge acute intermuscular hematoma at the right iliopsoas muscle. DISCHARGE DIAGNOSES: 1. Right leg deep vein thrombosis. Patient will continue on Coumadin. 2. Right iliopsoas muscle hematoma, resolved. Hemoglobin and hematocrit have remained stable. 3. Sepsis shock, resolved. 4. Anemia of acute blood loss, stable. 5. Possible diabetic gastroparesis. Nausea has resolved. 6. Acute kidney injury, resolved. 7. Urinary tract infection. Has been treated and resolved. 8. Physical deconditioning. Patient is being discharged to rehab facility. 9. Anemia, likely hemorrhagic. She has received multiple units of PRBCs. Her hemoglobin and hematocrit have remained stable. 10. Metabolic encephalopathy, resolved. 11. Constipation, resolved. HOSPITAL COURSE: Briefly, Ms. 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 Schilling on 11/01/2016 and was discharged to [facility]. She became lethargic and confused. She was brought to the ED for increased lethargy and confusion. Labs done at [facility]. Showed a profound increase in her BUN and creatinine. In the ED she was noted to be hypotensive with a profound leukocytosis with a left shift with an acute kidney injury. ABG revealed a metabolic acidosis with a lactic acid of 22. She was started on the sepsis protocol. Given broad-spectrum antibiotics, fluid resuscitation. She required a Levophed drip and moved to the ICU. They did do an abdomen and pelvis CT in light of her recent surgery. There was no evidence of bowel obstruction. It did show postsurgical changes of the a colectomy, nonobstructing left renal stone, right ovarian cyst. She was found to have a UTI as well as bacteremia that infectious disease was treating her for. She was monitored closely by nephrology. She was placed on SLED. She now has adequate urine output. Her electrolytes, acid-base, and anemia have all remained stable. Nephrology did sign off several days later. She no longer required hemodialysis. The patient did have a venous Doppler of her right lower extremity. She did have an extensive acute DVT throughout her right lower extremity. She was initiated on heparin drip. However, the patient did develop thrombocytopenia. Hematology was consulted. They recommended changing the patient to Arixtra secondary to the thrombocytopenia. At some point, she was transitioned to Coumadin. She also developed acute intramuscular hematoma of the right iliopsoas muscle. Initially her warfarin was stopped. She was given vitamin K. She was transfused with PRBCs and because of her hematoma she had to be taken off her anticoagulation. For her DVT they did discuss with surgery putting in an IVC filter. The patient was re-initiated back on her low-dose warfarin at 1 mg daily and increase to 5 mg daily. Her PT and INR were monitored closely. However, she still does not appear to be therapeutic at 5 mg. last PT and INR was 14.4 and 1.35. Her hematoma has resolved. The patient has been working with physical therapy. Her urinary tract infection has completely resolved. She is appropriate for discharge to rehab today. VITAL SIGNS: Temperature is 98.7 degrees, heart rate 93, respirations 16, blood pressure 139/64, O2 is 100% on room air. DISCHARGE DIET: Diabetic. DISCHARGE MEDICATIONS: As per Dr. Haas. Please see MAR. FOLLOW-UP: Ms. Hankins is being discharge to rehab. She can continue to follow up with GI and general surgery as indicated. She will continue to get regular checks on her PT and an INR for adjustments of her Coumadin for her right lower extremity DVT, as well as educated on signs and symptoms of bleeding. She can return to the ED for any worsening of symptoms. DISCHARGE TIME: 40 minutes. Dictated by STEVE Morales for Babak Hackett MD cc: Babak Hackett MD
[2016-12-09 15:56] VITALS: BP 140/63
--- NOTE | 2017-02-18 10:23 | ED EKG INTERP ---
This chart was entered by Maryana Rodgers Scribe, acting as scribe for Srikanth Snow MD. EKG Interpretation - EKG Time of EKG reading by physician:: 08:13 EKG Read and Signed by:: Srikanth Snow EKG Interpretation (*Must complete 3 of following elements*): Abnormal Rate: 76 Rhythm: nsr ST Wave: non-specific ST changes Comments: prolonged QT Attestation - Physician/ LENI Attestation Patient care was provided by Advanced Practice Provider:: No The physician spent face to face time with patient:: Yes Advanced Practice Provider documentation review:: Supervising physician onsite and consulted in the evaluation and care of this patient. The physician did have a face to face encounter with the patient. This chart was documented by the indicated scribe, (Maryana Rodgers Scribe) and accurately reflects the services I performed and decisions made by me, Srikanth Snow MD, as attested by the provider's signature.
== END 2016-12-09 16:44 ==
LOC: ED 08:06 → ICU 09:46 → SUATTDRO 09:46 → 4N 11-26 18:59 → 3N 11-30 10:12 → UNDODISIN 12-04 13:26
PROVIDERS: ATTEND Internal Medicine

== ENCOUNTER 2017-01-01 09:57 | Inpatient (IN) ==
[2017-01-01] MEDS ORDERED: NS 500 ML IV ONE (10:03)
--- NOTE | 2017-01-01 10:57 | Diag Imaging Result Doc PS360 ---
CT HEAD W/O CONTRAST - 01/01/2017 INDICATION: ams TECHNIQUE: A CT dose reduction protocol was used. COMPARISON: None FINDINGS: There is a small area of cortical-based hypodensity at the posterior left parietal lobe. No mass effect or hemorrhage. The skull is intact. The sinuses are clear. There is some mild periventricular white matter chronic microvascular disease. There is probably an old lacunar at the left basal ganglia. IMPRESSION: Small recent stroke in the left parietal lobe, at least a couple days old. No complication. Electronically signed by Andrea Bird 01/01/2017 10:54 AM
--- NOTE | 2017-01-01 11:57 | Diag Imaging Result Doc PS360 ---
CHEST-2 VIEWS - 01/01/2017 INDICATION: ams TECHNIQUE: COMPARISON: 11/18/2016 FINDINGS: The lungs are normally expanded and clear. Heart size and mediastinal contours are normal. No pneumothorax or pleural effusion. IMPRESSION: Negative exam. Electronically signed by Andrea Bird 01/01/2017 11:54 AM
[2017-01-01 12:33] LABS: INR 1.56; PROTIME 16.9 Seconds (9.2-11.7)
[2017-01-01 12:45] LABS: BASO% 0.3 % (0.0-0.8); EOS# 0.01 X1000 (0.0-0.7); EOS% 0.2 % (0.0-10.0); HEMATOCRIT 31.4 % (37.0-47.0); HEMOGLOBIN 10.6 g/dL (12.0-16.0); LYMPH# 1.68 X1000 (1.2-3.4); LYMPH% 25.2 % (20.5-51.1); MANUAL DIFF NEEDED? NO; MCH 32.3 PG (27-31); MCHC 33.8 g/dL (33-37); MCV 95.7 FL (81-99); MONO# 0.51 X1000 (0.11-0.59); MONO% 7.7 % (1.7-9.3); MPV 9.7 FL (7.4-10.4); NEUT% 66.6 % (42.2-75.2); PLT 174 X1000 (130-400); PTT 41.8 Seconds (22.0-36.0); RBC 3.28 XMIL (4.2-5.4)
[2017-01-01 12:59] LABS: URINE CULTURE NEEDED? NO; URINE SOURCE CATH
[2017-01-01 13:12] LABS: BILIRUBIN URINE NEGATIVE (NEGATIVE); BLOOD URINE NEGATIVE (NEGATIVE); COLOR YELLOW; GLUCOSE URINE NEGATIVE (NEGATIVE); LEUKOCYTES URINE NEGATIVE (NEGATIVE); NITRITE URINE NEGATIVE (NEGATIVE); PH URINE 5.5; PROTEIN URINE TRACE mg/dL (NEGATIVE); SP GRAVITY URINE 1.009; TURBIDITY URINE CLEAR (CLEAR); UROBILINOGEN URINE NORMAL (NORMAL)
[2017-01-01 13:13] LABS: URINE MICRO REVIEW NEEDED? YES
[2017-01-01 13:14] LABS: UR EPITHELIAL CELLS <10 /HPF (<10); URINE BACTERIA NEGATIVE /HPF; URINE RBC <10 /HPF (<10); URINE WBC <10 /HPF (<10)
[2017-01-01 13:15] LABS: ALBUMIN 2.4 g/dL (3.5-5.0); ALKALINE PHOSPHATASE 135 U/L (32-104); BUN 13 mg/dL (8-22); CALCIUM 8.7 mg/dL (8.8-10.2); CK PROFILE 36 U/L (24-173); GOT 20 U/L (10-30); GPT 10 U/L (10-36); MAGNESIUM 1.3 mg/dL (1.5-2.7); TCO2 26 mmol/L (25-35); TOTAL BILIRUBIN 0.37 mg/dL (0.20-1.00); TOTAL PROTEIN 6.6 g/dL (6.3-8.3)
[2017-01-01 13:19] LABS: URINE CASTS NONE SEEN; URINE CRYSTALS NONE SEEN; URINE SMALL ROUND CELLS NONE SEEN
[2017-01-01 13:21] LABS: AGAP 13; CHLORIDE 97 mmol/L (98-107); COSMO 275; POTASSIUM 4.6 mmol/L (3.5-5.1); SODIUM 136 mmol/L (136-145)
[2017-01-01] MEDS ORDERED: ASPIRIN PO ONE (14:26)
--- NOTE | 2017-01-01 14:28 | PROVIDER DOCUMENTATION ---
This chart was entered by Armida Le Scribe, acting as scribe for Stephon Alejandre PA. HPI-General Adult - General Chief Complaint: Altered Mental Status Stated Complaint: ams Time Seen by Provider: 01/01/17 10:03 Source: patient, EMS, [facility] records Allergies/Adverse Reactions: Patient Allergies Allergy/AdvReac Type Severity Reaction Status Date / Time Sulfa (Sulfonamide Allergy Unknown Verified 11/16/16 08:59 Antibiotics) Home Medications: Home Medication List Medication Instructions Recorded Confirmed Last Taken Type Metformin [Glucophage] 2 tab PO BID 10/27/16 11/16/16 10/31/16 11:00 History Omeprazole [Prilosec] 40 mg PO DAILY 10/27/16 11/16/16 10/30/16 History Gabapentin 100 mg PO QHS 11/01/16 11/16/16 10/29/16 History Polyethylene Glycol 3350 [Miralax] 17 gm PO DAILY 11/16/16 11/16/16 Unknown History Bisacodyl [Dulcolax] 10 mg TN DAILY #30 supp 12/09/16 Unknown Rx Clonazepam [Klonopin] 1 tab PO QHS #30 tab.rapdis 12/09/16 Unknown Rx Folic Acid 1 mg PO DAILY #60 tablet 12/09/16 Unknown Rx Hydrocodone/APAP 5 mg/325 mg 1 tab PO Q4H PRN PRN #40 tablet 12/09/16 Unknown Rx [[place]-5] Insulin Glargine [Lantus] 10 unit SUBQ QAM #5 insuln.pen 12/09/16 Unknown Rx Warfarin [Coumadin] 10 mg PO QHS #30 tablet 12/09/16 Unknown Rx - History of Present Illness -Gen Adult Nature of Presenting Problems: Pt isw a 76 year old female who came to the ED with a cc of [facility]s coming form the [facility]. Pt was reported to be more confused last night noted from the [facility] staff. [place] n/v, fever, chill, and chest pain. She is not walking in rehab due to leg pain. She is on coumadin for DVT. Location of Pain/Injury: reports: none Pain Radiation: reports: no radiation Quality of Pain: reports: none Onset/Duration: reports: last night Timing: reports: still present Context/Activities at Onset: reports: none Modifying Factors: improves with: nothing Associated Symptoms: denies: anxiety, chest pain, cough, dizziness, fever/chills , headaches, malaise, shortness of breath, syncope, vomiting Similar Symptoms Previously?: No Recently seen or treated by another doctor?: No Review of Systems - Adult - REVIEW OF SYSTEMS - ADULT Constitutional: denies: chills, fever Ears, Nose, Mouth & Throat: denies: epistaxis Cardiovascular: denies: chest pain Respiratory: denies: cough, shortness of breath Gastrointestinal: denies: abdominal pain, vomiting Musculoskeletal: denies: back pain Integumentary: denies: rash Neurological: denies: numbness, paresthesia, seizure All Other Systems: Reviewed and Negative Past History - Adult - PAST MEDICAL HISTORY-ADULT Review of Records: reports: Old Records Reviewed, Nursing Assessment Review, Medications Reviewed, Social history reviewed & non-contributory. Major Childhood Illnesses: reports: denies history Cardiovascular: reports: denies history Respiratory: reports: denies history Gastrointestinal: reports: denies history Obstetrical/Gynecological: reports: denies history Genitourinary: reports: dialysis (h/o) Musculoskeletal: reports: denies history Neurological: reports: denies history Endocrine/Immune: reports: denies history Other Conditions: reports: denies history - PRIOR SURGERIES/PROCEDURES Surgical/Procedure History: reports: other (total colectomy) - IMMUNIZATION STATUS Childhood Immunizations: See Nurse Assessment Flu Vaccine: See Nurse Assessment - FAMILY HISTORY Family History: reviewed, not pertinent - SOCIAL HISTORY Smoking: denies Substance Use: none/never Alcohol Use Frequency: never Living Situation: care facility Physical Exam-General - PHYSICAL EXAM-ADULT Initial Vital Signs Reviewed: Yes - CONSTITUTIONAL General Appearance: no apparent distress - EYES Eyes: PERRL/EOMI, pink conjunctivae - HEAD, EARS, NOSE, MOUTH & THROAT HENMT: normocephalic/atraumatic. negative: moist mucous membranes - NECK Neck: non-tender, full range of motion - RESPIRATORY Respiratory: chest non-tender, lungs clear, normal breath sounds - CARDIOVASCULAR Cardiovascular: normal peripheral pulses, regular rate, rhythm - GASTROINTESTINAL (ABDOMEN) Abdominal Exam: normal bowel sounds, non tender, soft - MUSCULOSKELETAL Back Exam: normal inspection, no CVA tenderness Extremity: normal range of motion, non-tender, other (right knee is slightly swollen. neg christoph's sign.) Peripheral Pulses: dorsalis-pedis (R): 2+, dorsalis-pedis (L): 2+ - SKIN Integumentary: normal color, normal turgor, warm/dry - NEUROLOGIC Neurologic: bottle house pumper II-XII nml as tested, grossly normal - PSYCHIATRIC Psych/Mental Status: normal mood/affect, normal thought content, normal thought process Progress - PLAN OF CARE/RESULTS Progress/Plan/Lab Results: Vital Signs - 8 hr 01/01/17 10:03 Temperature 98.0 F Pulse Rate 90 Respiratory Rate 18 Blood Pressure 117/64 O2 Sat by Pulse Oximetry 98 Orders Category Date Time Status Cardiac Monitoring DIRECTED Care 01/01/17 10:03 Active Saline Loc NOW Care 01/01/17 10:03 Active CHEST-2 VIEWS [RAD] Stat Exams 01/01/17 10:[address] HEAD W/O CONTRAST [CT] Stat Exams 01/01/17 10:03 Ordered CBC WITH ELECTRONIC DIFF [HEME] Stat Lab 01/01/17 10:03 Uncollected CK PROFILE [SP CHEM] Stat Lab 01/01/17 10:03 Uncollected COMPREHENSIVE METABOLIC PANEL [CHEM] Stat Lab 01/01/17 10:03 Uncollected MAGNESIUM [CHEM] Stat Lab 01/01/17 10:03 Uncollected PROTIME WITH INR [COAG] Stat Lab 01/01/17 10:03 Uncollected PTT [COAG] Stat Lab 01/01/17 10:03 Uncollected TROPONIN T Stat Lab 01/01/17 10:03 Uncollected UA NIMS W/REFLEX CULT [URINALYSIS] Stat Lab 01/01/17 10:03 Uncollected 0.9% Sodium Chloride Inj [Ns] 500 ml Med 01/01/17 10:03 Active IV 999 mls/hr EKG [EKG] Stat Ther 01/01/17 10:03 Ordered Result Diagrams: 01/01/17 11:40 01/01/17 11:40 - REASSESSMENT Reassessment #1 Time Reassessed: 14:00 Status: other (vss. pt without focal neurologic deficit. Appears to have subacute CVA. Will admit for potential carotid dopplers, echocardiogram, monitoring. Case and plan of care discussed with Dr. Wilcox.) - CONSULTS/PCP/HOSPITALIST Notification #1 *Consult/PCP/Hospitalist*: Srikanth BURGLARY INVESTIGATOR for Dr. West Time Discussed: 13:57 Departure - Departure Date of Disposition Decision: 01/01/17 Time of Disposition Decision: 13:57 DIAGNOSIS: Subtherapeutic international normalized ratio (INR) CVA (cerebral vascular accident) Qualifiers: CVA mechanism: unspecified Qualified Code(s): I63.9 - Cerebral infarction, unspecified Knee pain Qualifiers: Chronicity: acute Laterality: right Qualified Code(s): M25.561 - Pain in right knee Disposition: ADMITTED INPATIENT 09 Certified Medical Emergency: Emergent Condition: Stable Referrals and Follow-Ups: Froy Gant MD [Primary Care Provider] - - Critical Care Note This patient required my direct & personal management of CC.: No Attestation - Physician/ LENI Attestation Patient care was provided by Advanced Practice Provider:: Yes Advanced Practice Provider:: Stephon Alejandre Advanced Practice Provider documentation review:: The Mid-level provider documentation, treatment plan and medical decision making was reviewed by the physician who agrees with all treatment and medical decision making by the MLP. The physician spent face to face time with patient:: No Advanced Practice Provider documentation review:: Supervising physician onsite and consulted in the evaluation and care of this patient. The physician did not have a face to face encounter with the patient. This chart was documented by the indicated scribe, (Armida Le Scribe) and accurately reflects the services I performed and decisions made by me, Stephon Alejandre PA, as attested by the provider's signature.
[2017-01-01] MEDS ORDERED: MAGNESIUM SULFATE 2 GM/S.W.I. 2 GM/50 ML IVPB IV ONE (14:34)
[2017-01-01] MEDS ORDERED: VANCOMYCIN IV PER PHARMACY MISC SCH (15:00)
--- NOTE | 2017-01-01 15:17 | Diag Imaging Result Doc PS360 ---
KNEE 3 VIEWS RIGHT - 01/01/2017 INDICATION: probable septic arthritis TECHNIQUE: COMPARISON: None FINDINGS: There is a large nonspecific suprapatellar joint effusion. No fracture or dislocation. No bony erosions. IMPRESSION: Large nonspecific joint effusion. Electronically signed by Andrea Bird 01/01/2017 3:15 PM
--- NOTE | 2017-01-01 16:13 | HISTORY AND PHYSICAL ---
CHIEF COMPLAINT: Altered mental status. HISTORY OF PRESENT ILLNESS: Ms. Hankins is a 76-year-old female with a complex medical history. She has been in the hospital here multiple times over the past 2 months. She initially had an exploratory laparotomy with extensive lysis of adhesions for greater than 1 hour and total abdominal colectomy with ileoproctostomy on 11/[address] Froy Gant for extensive lysis of adhesions. She came back on the of last month in septic shock and required emergent hemodialysis. She was treated with broad-spectrum antibiotics and indeed placed on SLEDD. Over time, the acute kidney injury resolved and she was able to come off of dialysis. During the course of her stay, she developed a massive right iliopsoas hematoma and right lower extremity DVT and was put on a heparin drip. This was transitioned over to Coumadin as she had apparent heparin- induced thrombocytopenia. She was discharged on 12/09/2016 to [facility]. At this time, patient is unable to give any type of history secondary to her neurologic status. However, records report that she has been altered over the past few days and they felt that [facility]. Here in the ER, labs and diagnostics were done. There was no UTI, however there was a small recent stroke in the left parietal lobe without complication. The patient is confused, but she exhibits no focal deficits. She is also complaining of severe right knee pain and, on examination, the patient has quite a large right knee effusion that is hot to touch. We were unable to tell really if she had any injury to the knee, but she does have good distal range of motion. Her white count is not elevated and she is not febrile. She is now going to be admitted for further treatment and evaluation. PAST MEDICAL HISTORY: 1. Recent hospital admissions for septic shock and acute kidney injury requiring SLEDD, which has since resolved. 2. Massive right iliopsoas hematoma which has resolved. 3. Chronic anemia. 4. Severe intra-abdominal adhesions status post exploratory laparotomy. 5. Diabetes mellitus. 6. GERD. 7. Right lower extremity DVT on Coumadin therapy. 8. Gout SURGICAL HISTORY: Exploratory laparotomy, extensive lysis of adhesions, total abdominal colectomy with ileoproctostomy, right femoral vein Vas-Cath placement, cholecystectomy, hysterectomy, partial gastrectomy, bilateral rotator cuff repair, left foot surgery, cataract removal, shoulder arthroscopy. SOCIAL HISTORY: Patient has remote history of smoking. No history of alcohol or illicit drug use. She is ; is at the bedside. REVIEW OF SYSTEMS: Difficult to obtain, but a 14 point review of systems was obtained and found to be negative, except per HPI. FAMILY HISTORY: Noncontributory. HOME MEDICATIONS: Currently being compiled. ALLERGIES: Allergy to sulfa. PHYSICAL EXAMINATION: VITAL SIGNS: Blood pressure is 117/64, heart rate is 90, respiratory rate 18, O2 saturation 98% on room air. Temperature is 98 degrees. GENERAL: Chronically ill and elderly appearing, 76-year-old, female, lying in hospital bed in no acute distress. NEUROLOGIC: The patient is awake and alert. She follows commands without any overt focal deficits, but she is confused. HEENT: Head is atraumatic and normocephalic. Her pupils are equal, round, and reactive to light. Oral mucosa is moist. NECK: Trachea is midline. There is no JVD. CHEST: Clear to auscultation bilaterally. CV: Regular rate and rhythm. S1, S2 is noted. GI: Soft and nondistended. Bowel sounds are active. EXTREMITIES: Right knee edematous and warm to touch. Distal pulses are intact bilaterally, but diminished. There is no pedal edema. LABS AND X-RAYS: WBC 6.66, hemoglobin 10.6, hematocrit 31.4, platelet count 174. INR 1.56. Sodium 136, potassium 4.6, chloride 97, CO2 26, anion gap 13, BUN 13, creatinine is 0.8. Glucose is 144, calcium is 8.7, magnesium 1.3, T-bilirubin 0.37. AST 20, ALT 10, alkaline phosphatase 135, troponin is negative. Albumin 2.4. UA shows yeastlike cells present, but otherwise nothing acute. Chest x-ray. negative. Head CT with a small recent stroke in the left parietal lobe, at least a couple days old. No complication. EKG: Sinus rhythm, nonspecific ST and T changes. ASSESSMENT AND PLAN: 1. Recent stroke in the left parietal lobe: We will admit the patient to the floor with telemetry. Check an MRI and MRA of the head and neck on Tuesday. Make sure she is on aspirin. Continue her Coumadin. Consult neurology. Continue neuro checks and allow for permissive hypertension. We do not see an echocardiogram, but we will order one if there is not one done. 2. Right Knee Effusion: Unclear as to etiology at this time. Would consider Gout or Septic Arthritis We will get an x-ray of the knee, check a Uric Acid, CRP and ESR. We will obtain blood cultures and add vancomycin. We will also need to get orthopedics involved for possible knee tap. 3. Diabetes mellitus: Continue her home medications and add pattern sugars and sliding scale insulin. 4. Right lower extremity deep vein thrombosis: We will hold her Coumadin for now as she is likely bleeding into the right knee joint. Will discuss with orthopedics on when to start that back. 5. Gastroesophageal reflux disease. We will add intravenous Nexium. 6. Deep vein thrombosis prophylaxis. We will add an sequential compression device to the left leg. Further recommendations to follow. Dictated by STEVE Corrigan for Robb Owen MD cc: STEVE Corrigan MD I have seen and provided face to face encounter and evaluation of this patient. I have explained my findings and the plan with her and her family. Right Knee effusion likely gout vs septic knee consult ortho for arthrocentesis MTDD
[2017-01-01] MEDS ORDERED: NS 250 ML ONE (18:03)
[2017-01-01] MEDS: HUMALOG SUBQ SCH ×2 (18:14→20:59)
[2017-01-01] MEDS: VANCOMYCIN 1 GM/NS 1 GM/250 ML IVPB IV SCH (20:58)
[2017-01-02] MEDS: HUMALOG SUBQ SCH ×3 (06:07→17:36)
[2017-01-02 07:05] LABS: HEMATOCRIT 32.4 % (37.0-47.0); HEMOGLOBIN 10.5 g/dL (12.0-16.0); MCH 30.3 PG (27-31); MCHC 32.4 g/dL (33-37); MCV 93.4 FL (81-99); MPV 9.3 FL (7.4-10.4); RBC 3.47 XMIL (4.2-5.4)
[2017-01-02 07:34] LABS: AGAP 13; BUN 11 mg/dL (8-22); CALCIUM 8.4 mg/dL (8.8-10.2); CHLORIDE 102 mmol/L (98-107); COSMO 282; POTASSIUM 3.4 mmol/L (3.5-5.1); SODIUM 142 mmol/L (136-145); TCO2 27 mmol/L (25-35)
[2017-01-02] MEDS ORDERED: ANAPROX PO SCH (09:00)
[2017-01-02] MEDS: PROTONIX PO SCH (09:34)
[2017-01-02] MEDS: NAPROSYN PO SCH ×2 (09:34→20:34)
[2017-01-02] MEDS ORDERED: XYLOCAINE 1% INJ ONE (09:40)
[2017-01-02 11:06] LABS: DIFF NEEDED? YES; WBC BF 17049 /cumm
[2017-01-02 11:07] LABS: MONOS 0 %; POLYS 100 %
--- NOTE | 2017-01-02 14:21 | ECHO REPORT ---
ORDER DATE: 01/01/2017 ECHOCARDIOGRAPHIC MEASUREMENTS: 1. Interventricular septum 1.0, left ventricular posterior wall 0.8, diastolic diameter 4.6, left atrium 2.5, aorta 3.5. 2. Aortic valve leaflets were trileaflet. Pulmonic valve was normal. Tricuspid valve was normal. 3. Mitral valve was normal. 4. Normal left ventricular cavity size. Estimated ejection fraction of 65%. There is mild mitral regurgitation. Mild tricuspid regurgitation. Mild pulmonary regurgitation. Peak velocity across tricuspid valve was 2.6 m/sec. Peak velocity across the aortic valve less than 2 m/sec. By Doppler studies there is no aortic stenosis or regurgitation. 5. There is no pericardial effusion or obvious intracardiac mass or thrombus seen. cc: MD Jared Castro CRNP
--- NOTE | 2017-01-02 15:42 | CONSULTATION ---
DATE OF CONSULTATION: 01/02/2017 FAMILY PHYSICIANS: Dr. Froy Gant. ADMITTING PHYSICIAN: Dr. Robb Owen. CHIEF COMPLAINT: Pain, swelling right knee. HISTORY OF PRESENT ILLNESS: A very pleasant 76-year-old female who is admitted through emergency department yesterday for altered mental status and pain in right knee. She was noted to have a moderate effusion in the knee. Report from history and physical states her knee was red, swollen and warm. The patient was a bit confused on admission. She is much clearer this morning. She states she did not have any type of injury or fall. This lady has had an unfortunate summer starting with a rather extensive exploratory laparotomy with extensive lysis of adhesions that resulted in total abdominal colectomy and ileoproctostomy at on 11/01/[address] Froy Gant. Patient states that not soon after the surgery she began having swelling and pain in the knee. She unfortunately also developed DVT after the surgery and has since been placed on Coumadin. In regards the knee swelling today she states that this is actually improved over the summer. She states she began having a little more increased pain yesterday but today she states knee is very comfortable and feels about the same that has all summer. She denies any fevers or chills. PAST MEDICAL HISTORY: Chronic anemia, diabetes mellitus, gastroesophageal reflux disease, history DVT, gout. PAST SURGICAL HISTORY: 1. Exploratory laparotomy with extensive lysis of adhesions, total abdominal colectomy with ileoproctostomy. 2. Right femoral vein Vas-Cath placement. 3. Cholecystectomy. 4. Hysterectomy. 5. Partial gastrectomy. 6. Bilateral rotator cuff repairs. 7. Left foot surgery. 8. Cataract extraction with lens implant. 9. Shoulder arthroscopy. CURRENT MEDICATIONS: As per list in the chart, review with patient. DRUG ALLERGIES: Sulfa. SOCIAL HISTORY: Patient is and is at bedside and is very attentive. She has a very remote history of smoking. She denies any current tobacco use. She has no history of alcohol or illicit drug use. FAMILY HISTORY: Was reviewed and is noncontributory. REVIEW OF SYSTEMS: A 14 point review of systems obtained and found to be negative with exception of the HPI. PHYSICAL EXAM: Patient has a moderate effusion noted to the right knee. There is no erythema or warmth noted today. She has good range of motion the knee with patellar crepitus. There is no laxity with varus or valgus stress the knee. Calf is supple. X-RAY: Views of the right knee taken yesterday reveal moderate degenerative joint disease in the tibiofemoral joint with more advanced in the patellofemoral joint. There is a nonspecific joint effusion noted. IMPRESSION: 1. Right knee effusion. 2. Degenerative joint disease right knee. 3. Gout. PLAN: Consent was obtained today for aspiration. Aspiration was performed producing 25 mL of a cloudy fluid. The fluid had more an appearance of a gouty arthritis as opposed to septic arthritis. The fluid was sent to lab for review. Will obtain Gram stain, cell count, glucose, culture and sensitivity crystals. She will continue with the current treatment at this point. Will adjust as lab dictates. cc: Jj Noe, DO
[2017-01-02] MEDS: NEURONTIN PO SCH (16:02)
[2017-01-02] MEDS: ZYLOPRIM PO SCH ×2 (16:02→20:35)
[2017-01-02] MEDS: GLUCOPHAGE PO SCH (16:02)
--- NOTE | 2017-01-02 16:44 | PROGRESS NOTE ---
DATE: 01/02/2017 SUBJECTIVE: Today Ms. Hankins referred to be doing a whole lot better. The pain in the knee is significantly improved. She just had an arthrocentesis of the right knee by the orthopedic group and we are waiting on the fluid results. OBJECTIVE: Vital signs: Blood pressure is 138/67, pulse of 91, respirations 20, temperature 97.0 degrees. General: Ms. Hankins is a 76-year-old female. She is in bed. Did not seem to be in any remarkable distress. HEENT: Mucosa is pink and moist. Anicteric. Acyanotic. Neck: Supple. Chest: Good air entry bilaterally. No crepitations. No rhonchi. Cardiovascular: Regular rate and rhythm. Abdomen: Soft, nontender. There is no hepatosplenomegaly. Extremities: No pedal edema. Distal pulses are present. Specifically, the right knee is remarkably more swollen. It is tender. I did not feel any warmth and there are no erythematous changes today. CREAM DIPPER: Patient is awake, alert, and oriented x4. There is no focal neurological deficit. LABORATORY DATA: WBC is 6.07, hemoglobin is 10.5, platelet count is 193,000. ESR was 120 yesterday. Today sodium is 142, potassium is 3.4, chloride is 102, bicarb is 27, glucose is 96, uric acid is 7.4, 7.6 repeat this morning. Lipids unremarkable. A knee x-ray which was done yesterday shows a large nonspecific suprapatellar joint effusion. The fluid analysis shows WBC 17,049. There are 100% segments. There is no mononuclear WBCs. Glucose is 103. ASSESSMENT: 1. Right knee effusion status post arthrocentesis. The results so far look like it is an inflammatory versus an infectious etiology, taking into consideration that if the patient has a history of gout and has recent flares, I think this is probably a gout flare. I will go ahead and start the patient on naproxen and we will continue with the antibiotics for now until we have the culture results of the effusion. 2. Diabetes mellitus. On insulin and oral hypoglycemic agent. We will continue monitoring the glucose. 3. Hyperuricemia. In the context that the patient already has a history of gout and having the flare which we think it is due to uric acid in the knee, we will go ahead and start the patient on allopurinol for prophylaxis whilst the [facility] will treat acute disease. 4. History of right lower extremity deep vein thrombosis. Patient is on Coumadin therapy. We will continue with that. 5. Recent hospitalization for septic shock needing SLED. cc: Robb Owen MD
[2017-01-02] MEDS: KLONOPIN PO SCH (20:35)
[2017-01-03] MEDS: HUMALOG SUBQ SCH ×5 (03:00→22:35)
--- NOTE | 2017-01-03 06:10 | EKG Report ---
Test Performed on : 01/01/2017 10:04:13 AM Test Reason : Chest Pain Blood Pressure : / mmHG Vent. Rate : 092 BPM Atrial Rate : 092 BPM P-R Int : 170 ms QRS Dur : 070 ms QT Int : 368 ms P-R-T Axes : 002 001 092 degrees QTc Int : 455 ms Normal sinus rhythm. Abnormal QRS-T angle, consider primary T wave abnormality Abnormal ECG When compared with ECG of 16-NOV-2016 08:13, ST no longer depressed in Anterior leads Nonspecific T wave abnormality now evident in Anterolateral leads QT has shortened Unconfirmed Result
[2017-01-03 06:40] LABS: HEMATOCRIT 33.3 % (37.0-47.0); HEMOGLOBIN 10.6 g/dL (12.0-16.0); MCH 29.3 PG (27-31); MCHC 31.8 g/dL (33-37); MPV 9.1 FL (7.4-10.4); RBC 3.62 XMIL (4.2-5.4)
[2017-01-03] MEDS ORDERED: INSULIN PEN NEEDLES ONE (06:48)
[2017-01-03 07:01] LABS: CALCIUM 8.8 mg/dL (8.8-10.2); POTASSIUM 3.8 mmol/L (3.5-5.1)
[2017-01-03] MEDS: PROTONIX PO SCH (07:04)
[2017-01-03] MEDS: PRILOSEC PO SCH (07:04)
[2017-01-03] MEDS: VANCOMYCIN 1 GM/NS 1 GM/250 ML IVPB IV SCH (07:05)
[2017-01-03] MEDS: GLUCOPHAGE PO SCH ×2 (08:39→16:55)
[2017-01-03] MEDS: NEURONTIN PO SCH ×3 (08:39→16:55)
[2017-01-03] MEDS: THERA M PLUS PO SCH (08:39)
[2017-01-03] MEDS: LANTUS SUBQ SCH (08:39)
[2017-01-03] MEDS: NAPROSYN PO SCH ×2 (08:39→20:57)
[2017-01-03] MEDS: FOLIC ACID PO SCH (08:39)
[2017-01-03] MEDS: ZYLOPRIM PO SCH ×2 (08:39→20:57)
[2017-01-03] MEDS ORDERED: DULCOLAX PR SCH (09:00)
[2017-01-03] MEDS ORDERED: MIRALAX PO SCH (09:00)
[2017-01-03] MEDS: NS 1,000 ML IV SCH ×2 (11:05→22:35)
--- NOTE | 2017-01-03 17:13 | PROGRESS NOTE ---
DATE: 01/03/2017 SUBJECTIVE: Today Ms. Hankins referred to be doing a lot better. Knee pain is significantly improved after it has been tapped. OBJECTIVE: Vital signs: Blood pressure is 97/54, pulse of 108, respirations 16, temperature 98.6 degrees. General: Ms. Hankins is a 76-year-old female. She is in bed, not seemingly distressed. HEENT: Mucosa is pink and moist. Anicteric. Acyanotic. Neck: Supple. Chest: Clear. Cardiovascular: Regular rate and rhythm. There are no murmurs, no rubs, no gallops. Abdomen: Soft, nontender. Extremities: No pedal edema. There is mild swelling in the right knee with slight fluctuation. LABORATORY DATA: WBC is 5.98, hemoglobin is 10.6, platelet count of 227,000. Chemistry is reviewed. Creatinine is 1.2. The rest of chemistry is unremarkable. ASSESSMENT: 1. Right knee effusion status post arthrocentesis. We suspect this is a gout flare. However, an infectious etiology cannot be 100% ruled out since there are 100% segments in the fluid. The patient will continue with the gout therapy as well as antibiotics until we have the crystals in the fluid read. 2. Diabetes mellitus. Stable. 3. Hyperuricemia. Patient will continue on the allopurinol. 4. History of right lower extremity deep venous thrombosis. The patient will continue on her Coumadin. 5. Recent hospitalization for septic shock, needing SLED. 6. Slight acute kidney insufficiency. Patient creatinine went up slightly. She is on NSAID which could potentially cause the problem. She also is said to have had multiple bowel movements because she is on bowel regimen for supposed constipation. We have discontinued the bowel regimen. We are going to hydrate the patient, repeat her renal function for tomorrow. If the renal function continues to worsen, we will discontinue the NSAID and use something else for her gout flare. 7. The patient is also currently on vancomycin for possible septic knee. We will pay very close attention to the levels. If the kidney function continues to worsen, we will probably have to discontinue the vancomycin as well. PLAN: So in general, I think Ms. Hankins clinically is stable. Creatinine went up slightly. We will hydrate the patient. Repeat BMP for tomorrow. She is originally from [facility]. If she continues to be stable by tomorrow and her kidney functions improve and crystals are back to be positive, we can discharge her to [facility] on and her treatment for gout arthritis. cc: Robb Owen MD
--- NOTE | 2017-01-03 17:26 | PROGRESS NOTE ---
DATE: 01/03/2017 SUBJECTIVE: Ms. Hankins is a 76-year-old female who has experienced a right knee effusion and yesterday her right knee joint was aspirated with what appeared to be gouty arthritis. The fluid was sent off to the lab. She has no new complaints today. She still has some effusion on her right knee but she has good range of motion of her right knee without pain. OBJECTIVE: General Appearance: She is a well-developed, well-nourished female. She is alert, oriented, and cooperative with examination. She is in no acute distress. Vital Signs: Stable. She is afebrile. Extremities: Her right knee reveals a 1+ effusion. She denies any pain with range of motion. She is able to flex her knee to about 130 degrees without pain. Her right leg is neurovascularly intact. ASSESSMENT: Right knee effusion with degenerative joint disease of the right knee and gout. PLAN: We are still waiting on results of the crystals from her knee aspiration from yesterday. Her white blood cell count of the knee aspiration was 17,000, which aids in ruling out a septic right knee. We will continue to monitor and we will formulate a treatment plan once we have the results of the crystals. Dictated by RUBI Van for Juan Mcintosh MD cc: RUBI Van MD MTDD
[2017-01-03] MEDS: KLONOPIN PO SCH (20:57)
[2017-01-04] MEDS: NS 1,000 ML IV SCH ×4 (03:44→23:11)
[2017-01-04] MEDS: PRILOSEC PO SCH (06:44)
[2017-01-04 06:57] LABS: HEMATOCRIT 32.6 % (37.0-47.0); HEMOGLOBIN 10.3 g/dL (12.0-16.0); MCH 29.2 PG (27-31); MCHC 31.6 g/dL (33-37); MCV 92.4 FL (81-99); MPV 9.3 FL (7.4-10.4); RBC 3.53 XMIL (4.2-5.4)
[2017-01-04 07:38] LABS: CALCIUM 8.2 mg/dL (8.8-10.2); POTASSIUM 4.6 mmol/L (3.5-5.1)
--- NOTE | 2017-01-04 08:14 | PROGRESS NOTE ---
DATE: 01/04/2017 SUBJECTIVE: Ms. Hankins is a 76-year-old female who has experienced a right knee effusion which, 2 days ago, was aspirated with what appeared to be gouty arthritis. She has no new complaints today. She denies any pain in her right knee pain. She has good range of motion. OBJECTIVE: She is a well-developed, well-nourished female. She is alert, oriented, and cooperative with the examination. She is in no acute distress. Her vital signs are stable. She is afebrile. Her right knee continues to have a mild effusion. She denies any pain with range of motion. Her right leg is neurovascularly intact. ASSESSMENT: Right knee effusion with degenerative joint disease of the right knee and gout. PLAN: We are still waiting on the results of the crystals from her right knee aspiration from 2 days ago. We do believe that this is likely due to a gout flare rather than a septic knee. She can be discharged to rehab when she is medically stable. We will have her follow up with Dr. Mcintosh in the clinic in about 2 weeks. Dictated by RUBI Van for Juan Mcintosh MD cc: RUBI Van MD
[2017-01-04] MEDS: GLUCOPHAGE PO SCH (08:21)
[2017-01-04] MEDS: FOLIC ACID PO SCH (08:21)
[2017-01-04] MEDS: THERA M PLUS PO SCH (08:21)
[2017-01-04] MEDS: NEURONTIN PO SCH ×3 (08:21→18:33)
[2017-01-04] MEDS: LANTUS SUBQ SCH (08:22)
[2017-01-04] MEDS: NAPROSYN PO SCH (08:22)
[2017-01-04] MEDS: ZYLOPRIM PO SCH ×2 (08:22→20:26)
[2017-01-04] MEDS: HUMALOG SUBQ SCH ×4 (08:28→21:00)
[2017-01-04 11:12] LABS: INR 1.19; PROTIME 12.6 Seconds (9.2-11.7)
[2017-01-04] MEDS ORDERED: ROCEPHIN 1 GM in NS 50 ML IV SCH (14:45)
--- NOTE | 2017-01-04 15:07 | PROGRESS NOTE ---
DATE: 01/04/2017 SUBJECTIVE: The patient is resting comfortably in bed. She states that the pain and swelling in her right knee is slowly improving. OBJECTIVE: Vital Signs: Temperature 98 degrees, blood pressure 123/50, heart rate 98, respirations 17, O2 saturations 100% on room air. General: This is an elderly female, lying in bed, in no acute distress. Head: Normocephalic, atraumatic. Heart: S1, S2 normal. Regular rate and rhythm. Lungs: Clear to auscultation bilaterally. No crackles. Abdomen: Positive bowel sounds. Soft, nontender, nondistended. Extremities: There is swelling involving the right knee. No peripheral edema. neurologic: The patient is alert and oriented x3. LABORATORIES: White blood cell count 10, hemoglobin 10, hematocrit 32, platelets 226,000. INR 1.1. Sodium 142, potassium 4.6, chloride 107, CO2 26, BUN 23, creatinine 1.4, glucose 91. ASSESSMENT AND PLAN: 1. Right knee effusion. The fluid analysis from the effusion is showing up as negative for crystals. The patient appears to be improving with antibiotic therapy. White count has remained normal throughout the hospitalization. Continue with physical therapy. 2. Acute kidney injury. The patient's creatinine has risen up to 1.4. Will check urine studies. We will discontinue the naproxen and metformin. Continue with IV fluid hydration. If her renal function continues to worsen, we will consult the manager architecture. 3. Diabetes mellitus type 2. Continue on Lantus. 4. Hyperuricemia. Continue on allopurinol. 5. Right lower extremity deep vein thrombosis. We will restart the patient's Coumadin. 6. Continue with physical therapy. 7. Disposition: The patient will be discharged to rehabilitation once medically stable. cc: Kenia Obrien MD
[2017-01-04 15:14] LABS: MAGNESIUM 1.1 mg/dL (1.5-2.7)
[2017-01-04 15:32] LABS: ALBUMIN 2.2 g/dL (3.5-5.0)
[2017-01-04 18:04] LABS: UR CREAT RANDOM 130.2 mg/dL (11-20); UR PROT RANDOM 44.2 mg/dL
[2017-01-04] MEDS ORDERED: MAGNESIUM SULFATE 2 GM/S.W.I. 2 GM/50 ML IVPB IV ONE (18:22)
[2017-01-04] MEDS: KLONOPIN PO SCH (20:26)
[2017-01-04] MEDS ORDERED: COUMADIN PO SCH (21:00)
[2017-01-05] MEDS: PRILOSEC PO SCH (06:11)
[2017-01-05] MEDS: NS 1,000 ML IV SCH (06:11)
[2017-01-05 07:00] LABS: HEMATOCRIT 32.6 % (37.0-47.0); HEMOGLOBIN 10.3 g/dL (12.0-16.0); MCH 29.9 PG (27-31); MCHC 31.6 g/dL (33-37); MCV 94.5 FL (81-99); MPV 9.2 FL (7.4-10.4); RBC 3.45 XMIL (4.2-5.4)
[2017-01-05 07:03] LABS: INR 1.05; PROTIME 11.1 Seconds (9.2-11.7)
[2017-01-05 07:19] LABS: ALBUMIN 2.5 g/dL (3.5-5.0); CALCIUM 8.9 mg/dL (8.8-10.2); MAGNESIUM 1.8 mg/dL (1.5-2.7); POTASSIUM 4.3 mmol/L (3.5-5.1)
--- NOTE | 2017-01-05 08:47 | DISCHARGE SUMMARY ---
ADMISSION DATE: 01/01/2017 DISCHARGE DATE: 01/05/2017 CONSULTATIONS: Dr. Jj Noe with Orthopedics. PERTINENT PROCEDURES: 1. Head CT showed small recent stroke in the left parietal lobe, at least a couple days old, no complication. 2. Knee x-ray showed a large nonspecific joint effusion. 3. Echocardiogram showed an EF of 65%, mild mitral regurgitation. DISCHARGE DIAGNOSES: 1. Right knee effusion. 2. Acute kidney injury 3. Diabetes mellitus type 2. 4. Hyperuricemia. 5. Right lower extremity deep venous thrombosis. 6. Recent stroke in the left parietal lobe. HOSPITAL COURSE: Ms. Hankins is a 76-year-old female with a complex medical history. She has been in the hospital multiple times over the past 2 months, initially with an exploratory laparotomy with extensive lysis of adhesions, greater than 1 hour, and total abdominal colectomy with ileoproctostomy on 11/01/[address] Gant for extensive lysis of adhesions. She came back on the of last month in septic shock, and required emergent hemodialysis, treated with broad- spectrum antibiotics, and had to be placed on dialysis due to her acute kidney injury. She was able to come off dialysis. During the course of her stay, she developed a massive right leg hematoma and a right lower extremity DVT, and was placed on a heparin drip, transitioned over to Coumadin because she had heparin-induced thrombocytopenia. She was discharged to rehab on 12/09/2016 to [facility]. On 01/01/2017, the patient was brought back to the ED secondary to her neurologic status. She had been altered over the past few days. They felt she had a urinary tract infection at the senior living. Labs and diagnostics were done. There was no UTI. However, there was a small recent stroke in the left parietal lobe without complication. The patient was confused, but exhibited no focal deficits. There was a large right knee effusion that was hot to the touch. Her white count was not elevated. She was not febrile. She was initially admitted for a recent stroke in the left parietal lobe. She was maintained on aspirin and Coumadin. For her right knee effusion, Orthopedics was consulted. She was started on antibiotics. Orthopedics felt there was a right knee effusion with degenerative joint disease of her right knee with gout. They did do a right knee aspiration. So far, it is not showing any crystals. She has remained working with Physical Therapy, and from orthopedic standpoint, she could be discharged when she was medically stable, and follow up with Dr. Mcintosh in 2 weeks. She did develop an acute kidney injury. Her metformin and naproxen were held, and she was started on IV fluid hydration. That resolved, and she is stable for discharge back to rehab today. VITAL SIGNS: Temperature is 97.9 degrees, heart rate 99, respirations 18, blood pressure 102/53, O2 is 99% on room air. DISCHARGE DIET: Diabetic diet with Glucerna shakes each meal. DISCHARGE MEDICATIONS: As per Dr. Obrien. 1. Zyloprim 100 mg p.o. b.i.d. 2. Dulcolax 10 mg MA daily. 3. Keflex 500 mg p.o. b.i.d. 4. Klonopin 1 mg tablet p.o. at bedtime. 5. Folic acid 1 mg p.o. daily. 6. Gabapentin 100 mg p.o. t.i.d. 7. Sutter 5 one tablet p.o. every 4 hours p.r.n. 8. Lantus 10 units subcutaneously every a.m. 9. Thera multivitamin 1 tablet p.o. daily. 10. Prilosec 40 mg p.o. daily. 11. Coumadin 10 mg p.o. at bedtime. FOLLOWUP: Ms. Hankins is being discharged back to rehab. She will follow up with Dr. Mcintosh in the clinic in 2 weeks. She can return to the ED for any worsening of symptoms. Discharge time: 30 minutes Dictated by STEVE Morales for Kenia Obrien MD cc: MD Froy Azul MD MTDD
[2017-01-05] MEDS: FOLIC ACID PO SCH (09:14)
[2017-01-05] MEDS: ZYLOPRIM PO SCH (09:14)
[2017-01-05] MEDS: NEURONTIN PO SCH (09:14)
[2017-01-05] MEDS: THERA M PLUS PO SCH (09:14)
[2017-01-05] MEDS: HUMALOG SUBQ SCH ×2 (09:15→12:34)
[2017-01-05] MEDS: LANTUS SUBQ SCH (09:15)
[2017-01-05 11:40] VITALS: BP 123/57
== END 2017-01-05 14:45 ==
LOC: ED 09:57 → SUATTDRO 15:04 → 3N 15:04
PROVIDERS: ATTEND Internal Medicine